=== PATIENT | male | born 1970 | race Caucasian/White ===

== ENCOUNTER 2021-02-13 11:48 | Emergency (ER) | payer BC, OTHER ==
--- NOTE | 2021-02-13 12:07 | EDPHYS ---
Physician Documentation [facility] Name: Jeferson Garcia Age: 50 yrs Sex: Male : 1970 Arrival Date: 02/13/2021 Time: 11:56 Bed 3 Private MD: ED Physician Ron Grey HPI: 02/13 12:07 This 50 yrs old Male presents to ER via Unassigned with complaints of S/S of kdr Possible Stroke. 12:07 The patient presents to the emergency department with weakness of the left upper kdr extremity, that is severe, left lower extremity, that is severe, a speech or higher order brain function problem, aphasia, that is mild, difficulty standing, the patient cannot stand, difficult walking, the patient cannot walk. Onset: The symptoms/episode began/occurred acutely, just prior to arrival. Context: occurred at home, occurred while the patient was standing. Associated signs and symptoms: Pertinent positives: headache. Severity of symptoms: At their worst the symptoms were mild moderate just prior to arrival, in the emergency department the symptoms. Patient's baseline: Neuro: alert and fully oriented, Motor: no deficits, Ambulation: walks without assistance, Speech: normal. Current symptoms: paralysis or paresis, of the left arm and left leg, that is severe. The patient has not experienced similar symptoms in the past. The patient has not recently seen a physician. Historical: - Allergies: 12:13 No Known Allergies; sv - PMHx: 12:13 None; sv - PSHx: 12:13 None; sv - Immunization history:: Adult Immunizations unknown. - Social history:: Smoking status: unknown. ROS: 12:07 Constitutional: Negative for fever, chills, and weight loss, Eyes: Negative for injury, kdr pain, redness, and discharge, ENT: Negative for injury, pain, and discharge, Neck: Negative for injury, pain, and swelling, Cardiovascular: Negative for chest pain, palpitations, and edema, Respiratory: Negative for shortness of breath, cough, wheezing, and pleuritic chest pain, Abdomen/GI: Negative for abdominal pain, nausea, vomiting, diarrhea, and constipation, Back: Negative for injury and pain, : Negative for injury, bleeding, discharge, and swelling, MS/Extremity: Negative for injury and deformity, Skin: Negative for injury, rash, and discoloration, Psych: Negative for depression, anxiety, suicide ideation, homicidal ideation, and hallucinations, Allergy/Immunology: Negative for hives, rash, and allergies, Endocrine: Negative for neck swelling, polydipsia, polyuria, polyphagia, and marked weight changes, Hematologic/Lymphatic: Negative for swollen nodes, abnormal bleeding, and unusual bruising. 12:07 Neuro: Positive for headache, weakness, of the left arm and left leg. Exam: 12:02 ECG was reviewed by the Attending Physician. kdr 12:07 Constitutional: This is a well developed, well nourished patient who is awake, alert, kdr and in no acute distress. Head/Face: Normocephalic, atraumatic. Eyes: Pupils equal round and reactive to light, extra-ocular motions intact. Lids and lashes normal. Conjunctiva and sclera are non-icteric and not injected. Cornea within normal limits. Periorbital areas with no swelling, redness, or edema. Neck: Trachea midline, no thyromegaly or masses palpated, and no cervical lymphadenopathy. Supple, full range of motion without nuchal rigidity, or vertebral point tenderness. No Meningismus. Chest/axilla: Normal chest wall appearance and motion. Nontender with no deformity. No lesions are appreciated. Cardiovascular: Regular rate and rhythm with a normal S1 and S2. No gallops, murmurs, or rubs. Normal PMI, no JVD. No pulse deficits. Respiratory: Lungs have equal breath sounds bilaterally, clear to auscultation and percussion. No rales, rhonchi or wheezes noted. No increased work of breathing, no retractions or nasal flaring. Abdomen/GI: Soft, non-tender, with normal bowel sounds. No distension or tympany. No guarding or rebound. No evidence of tenderness throughout. Back: No spinal tenderness. No costovertebral tenderness. Full range of motion. Skin: Warm, dry with normal turgor. Normal color with no rashes, no lesions, and no evidence of cellulitis. MS/ Extremity: Pulses equal, no cyanosis. Neurovascular intact. Full, normal range of motion. Psych: Awake, alert, with orientation to person, place and time. Behavior, mood, and affect are within normal limits. 12:07 Neuro: Orientation: is normal, Mentation: is normal, Memory: is normal, Motor: strength is 5/5 in the right arm and right leg, Strength is 1/5 in the left arm and left leg. Vital Signs: 11:45 Weight 117.93 kg; sv 11:50 BP 222 / 119; Pulse 98; Resp 19 S; Temp 97.3(TE); Pulse Ox 94% on R/A; jd3 12:15 BP 204 / 104; Pulse 99; Resp 19 S; Pulse Ox 89% on R/A; jd3 12:25 BP 188 / 98; Pulse 105; Resp 20 S; Pulse Ox 96% on 2 lpm NC; jd3 12:35 BP 207 / 96; Pulse 108; Resp 18 S; Pulse Ox 95% on 2 lpm NC; jd3 12:45 BP 193 / 97; Pulse 109; Resp 19 S; Pulse Ox 97% on 2 lpm NC; jd3 NIH Stroke Scale Scores: 11:48 NIHSS Score: 18 jd3 11:48 NIHSS Score: 18 jd3 12:23 NIHSS Score: 17 kdr MDM: 12:06 Patient medically screened. kdr 12:07 Data reviewed: vital signs, nurses notes, lab test result(s), radiologic studies. kdr Counseling: I had a detailed discussion with the patient and/or guardian regarding: the historical points, exam findings, and any diagnostic results supporting the discharge/admit diagnosis, lab results, radiology results, the need to transfer to another facility. 02/13 12:04 Order name: Basic Metabolic Panel; Complete Time: 14:12 kdr 02/13 12:04 Order name: CBC with Diff; Complete Time: 12:23 kdr 02/13 12:04 Order name: Protime (+inr); Complete Time: 14:12 kdr 02/13 12:04 Order name: Ptt, Activated; Complete Time: 14:12 kdr 02/13 12:15 Order name: Glucose, Ancillary Testing; Complete Time: 12:23 EDMS 02/13 12:16 Order name: COVID-19 : Document "Date of Symptom Onset" if Symptomatic. kdr 02/13 12:04 Order name: CT Stroke Brain w/o Contrast; Complete Time: 12:23 kdr 02/13 12:04 Order name: Stroke CXR 1 View; Complete Time: 14:12 kdr 02/13 12:04 Order name: EKG; Complete Time: 12:04 kdr 02/13 12:04 Order name: Accucheck; Complete Time: 12:15 kdr 02/13 12:04 Order name: Cardiac monitoring; Complete Time: 12:04 kdr 02/13 12:04 Order name: EKG - Nurse/Tech; Complete Time: 12:15 kdr 02/13 12:04 Order name: IV Saline Lock; Complete Time: 12:04 kdr 02/13 12:04 Order name: Labs collected and sent; Complete Time: 12:04 kdr 02/13 12:04 Order name: NPO; Complete Time: 12:15 kdr 02/13 12:04 Order name: O2 Per Protocol; Complete Time: 12:04 kdr 02/13 12:04 Order name: O2 Sat Monitoring; Complete Time: 12:04 kdr 02/13 12:04 Order name: Stroke Swallow Screen; Complete Time: 12:15 kdr EC:02 Rate is 97 beats/min. Rhythm is regular, Sinus Rhythm with No ectopy. QRS Amity is kdr Normal. [place] interval is normal. QRS interval is normal. QT interval is normal. Clinical impression: NSR w/ Non-specific ST/T Changes. Administered Medications: 12:01 Drug: Cardizem (diltiazem) 5 mg/hr Route: IV; Rate: calculated rate; Site: left forearm;ll1 12:30 Follow up: Response: No adverse reaction; IV Status: Infusion continued upon transfer jd3 Point of Care Testing: Blood Glucose: 12:00 Blood Glucose: 98 mg/dL; jd3 Ranges: Critical Glucose Levels:Adult <50 mg/dl or >400 mg/dl <40 mg/dl or >180 mg/dl Disposition Summary: 02/13/21 12:06 Transfer Ordered Transfer Location: [facility] kdr Reason: Higher level of care kdr Condition: Serious kdr Problem: new kdr Symptoms: are unchanged kdr Accepting Physician: stroke(02/13/21 12:59) jd3 Diagnosis - ICH kdr Forms: - Medication Reconciliation Form kdr - SBAR form kdr NIH Stroke Scale - NIH Stroke Score Date: 02/13/2021 Time: 11:48 Total Score = 18 1a. Level of Consciousness (LOC) - 1(Not Alert) 1b. Level of Consciousness (LOC) (Month \\T\\ Age) - 0(Both) 1c. LOC Commands (Open \\T\\ Closes Eyes/Geophysics Professor) - 0(Both) 2. Best Gaze (Lateral Gaze Paresis) - 1(Partial gaze palsy) 3. Visual Field Loss - 1(Partial hemianopia) 4. Facial Palsy - 3(Complete paralysis) 5a. Left Arm: Motor (10-second hold) - 3(No effort against gravity) 5b. Right Arm: Motor (10-second hold) - 0(No drift) 6a. Left Leg: Motor (5-second hold - always test supine) - 3(No effort against gravity) 6b. Right Leg: Motor (5-second hold - always test supine) - 0(No drift) 7. Limb Ataxia (finger/nose \\T\\ heel/quiñones - test with eyes open) - 1(Present in one limb) 8. Sensory Loss (pinprick arms/legs/face) - 2(Severe to total loss) 9. Best Language: Aphasia (description/naming/reading) - 1(Mild to moderate aphasia) 10. Dysarthria (speech clarity - read or repeat words) - 1(Mild to Moderate) 11. Extinction and Inattention (visual/tactile/auditory/spatial/personal) - 1(Present) Initials: jd3 NIH Stroke Scale - NIH Stroke Score Date: 02/13/2021 Time: 11:48 Total Score = 18 1a. Level of Consciousness (LOC) - 1(Not Alert) 1b. Level of Consciousness (LOC) (Month \\T\\ Age) - 0(Both) 1c. LOC Commands (Open \\T\\ Closes Eyes/Geophysics Professor) - 0(Both) 2. Best Gaze (Lateral Gaze Paresis) - 1(Partial gaze palsy) 3. Visual Field Loss - 1(Partial hemianopia) 4. Facial Palsy - 3(Complete paralysis) 5a. Left Arm: Motor (10-second hold) - 3(No effort against gravity) 5b. Right Arm: Motor (10-second hold) - 0(No drift) 6a. Left Leg: Motor (5-second hold - always test supine) - 3(No effort against gravity) 6b. Right Leg: Motor (5-second hold - always test supine) - 0(No drift) 7. Limb Ataxia (finger/nose \\T\\ heel/quiñones - test with eyes open) - 2(Present in two limbs) 8. Sensory Loss (pinprick arms/legs/face) - 1(Mild to moderate loss) 9. Best Language: Aphasia (description/naming/reading) - 1(Mild to moderate aphasia) 10. Dysarthria (speech clarity - read or repeat words) - 1(Mild to Moderate) 11. Extinction and Inattention (visual/tactile/auditory/spatial/personal) - 1(Present) Initials: javier NIH Stroke Scale - NIH Stroke Score Date: 02/13/2021 Time: 12:23 Total Score = 17 1a. Level of Consciousness (LOC) - 1(Not Alert) 1b. Level of Consciousness (LOC) (Month \\T\\ Age) - 0(Both) 1c. LOC Commands (Open \\T\\ Closes Eyes/Geophysics Professor) - 0(Both) 2. Best Gaze (Lateral Gaze Paresis) - 0(Normal) 3. Visual Field Loss - 2(Complete hemianopia) 4. Facial Palsy - 0(Normal) 5a. Left Arm: Motor (10-second hold) - 4(No movement) 5b. Right Arm: Motor (10-second hold) - 0(No drift) 6a. Left Leg: Motor (5-second hold - always test supine) - 4(No movement) 6b. Right Leg: Motor (5-second hold - always test supine) - 0(No drift) 7. Limb Ataxia (finger/nose \\T\\ heel/quiñones - test with eyes open) - 2(Present in two limbs) 8. Sensory Loss (pinprick arms/legs/face) - 2(Severe to total loss) 9. Best Language: Aphasia (description/naming/reading) - 1(Mild to moderate aphasia) 10. Dysarthria (speech clarity - read or repeat words) - 1(Mild to Moderate) 11. Extinction and Inattention (visual/tactile/auditory/spatial/personal) - 0(No abnormality) Initials: kdr Signatures: Dispatcher [employer] Geni Bob RN RN sv Rittger, Kevin, MD MD kdr Davies, Jonathon, RN RN jd3 Lewis, Lynsay, RN RN ll1 Corrections: (The following items were deleted from the chart) 12:59 12:06 stroke kdr jd3
[2021-02-13 12:15] LABS: Absolute Lymphocytes (CBC) 2.5 K/uL (0.7-4.9); Basophils % 1.3 % (0-1.3); Hematocrit 40.1 % (39.6-49.0); Lymphocytes % 31.3 % (15.3-44.8); RBC Red Blood Cell Count 4.72 M/uL (4.33-5.43)
--- NOTE | 2021-02-13 12:17 | RAD REPORT ---
EXAM DESCRIPTION: CT - Ct Stroke Brain Wo Cont - 02/13/2021 12:09 pm CLINICAL HISTORY: WEAKNESS Headache, drowsiness, CVA symptomology COMPARISON: <Comparisons> TECHNIQUE: All CT scans are performed using dose optimization technique as appropriate and may inclu de automated exposure control or mA/KV adjustment according to patient size. FINDINGS: Acute intraparenchymal hemorrhage is present in right thalamus/ basal ganglia region measu ring 3.8 x 2.7 cm.There is mild surrounding edema seen. Minimal right to left midline shift of 4 mm i s noted. Mild mucosal thickening of the inferior maxillary antrum on the left is seen. The paranasal sinuses m astoids are otherwise clear. The calvarium is intact. IMPRESSION: Acute intracranial hematoma is seen right thalamus/basal ganglia region (3.8 x 2.7 cm) w ith minimal right to left 4 mm of midline shift. The findings were discussed with Dr. Grey in the ER on 02/13/2021 at 11:55 a.m. by telephone.
[2021-02-13] MEDS ORDERED: Nicardipine/NS 25 MG/250 ML KIT IV ONE (12:18)
[2021-02-13 12:25] LABS: Protime INR 1.08
--- NOTE | 2021-02-13 12:27 | RAD REPORT ---
EXAM DESCRIPTION: RAD - Chest Single View - 02/13/2021 12:16 pm CLINICAL HISTORY: weak Chest pain. COMPARISON: <Comparisons> FINDINGS: Portable technique limits examination quality. The lungs are grossly clear. The heart is normal in size. No displaced fractures. IMPRESSION: No acute intrathoracic process suspected.
[2021-02-13 12:29] LABS: Potassium 3.5 mmol/L (3.5-5.1)
--- NOTE | 2021-02-13 13:00 | ER ---
Nurse's Notes [facility] Name: Jeferson Garcia Age: 50 yrs Sex: Male : 1970 Arrival Date: 02/13/2021 Time: 11:56 Bed 3 Private MD: Diagnosis: ICH Presentation: 02/13 11:45 Chief complaint: EMS states: left arm and leg weakness, left arm tremor, slurred speech sv started at about 1125. Pt reports a right sided headache yesterday around 2100 and went to bed around 2300. Woke up with the same headache this morning around 0900. In EMS route pt became more lethargic, nauseous, and diaphoretic. 20G L FA BP 215/124 BS-131, Zofran 4mg IVP given. EMS reported that pt collapsed to the ground on the stairs but did not fall. An acute neurological deficit is present. The charge nurse has been notified. The patients blood glucose was checked prior to arriving to the hospital and was found to be hyperglycemic. Risk Assessment: Do you want to hurt yourself or someone else? Patient reports no desire to harm self or others. Onset of symptoms was February 13, 2021. 11:45 Method Of Arrival: EMS: [facility] sv 11:45 Acuity: FREDA 1 sv 11:48 Coronavirus screen: At this time, the client does not indicate any symptoms associated jd3 with coronavirus-19. Ebola Screen: Patient negative for fever greater than or equal to 101.5 degrees Fahrenheit, and additional compatible Ebola Virus Disease symptoms. Initial Sepsis Screen: Does the patient meet any 2 criteria? No. Patient's initial sepsis screen is negative. Does the patient have a suspected source of infection? No. Patient's initial sepsis screen is negative. Triage Assessment: 11:45 The onset of the patients symptoms was February 13, 2021 at 11:25. General: Appears sv uncomfortable, obese, well developed, Behavior is calm, cooperative, appropriate for age. Pain: Complains of pain in right frontal area, right side of the back of head and right temporal area. Neuro: Level of Consciousness is obeys commands, lethargic, Oriented to person, place, time, situation, Weakness in left arm(s) leg(s) Speech is slurred, Reports headache in right weakness in left arm and left leg Denies blurred vision numbness diplopia. Respiratory: Airway is patent Respiratory effort is even, unlabored, Respiratory pattern is regular, symmetrical. Derm: Skin is normal. Musculoskeletal:. Stroke Activation: Symptom onset < 3 hours Physician: Stroke Attending; Name: ; Notified At: ; Arrived At: Physician: Chief Stroke Resident; Name: ; Notified At: ; Arrived At: Physician: Stroke Resident; Name: ; Notified At: ; Arrived At: Physician: ED Attending; Name: Dr Grey; Notified At: 11:32; Arrived At: 11:52 Physician: ED Resident; Name: ; Notified At: ; Arrived At: Historical: - Allergies: 12:13 No Known Allergies; sv - PMHx: 12:13 None; sv - PSHx: 12:13 None; sv - Immunization history:: Adult Immunizations unknown. - Social history:: Smoking status: unknown. Screenin:48 The patient has not been NPO before screening. The patient is currently on the jd3 following diet: regular The patient is alert, able to follow commands. The patient exhibits slurred or garbled speech. Provider notified of indication for Speech Therapy consult. The patient failed the bedside swallow screening. The patient will be kept NPO until cleared by Speech Therapy or Physician. Provider notified of bedside swallow screening results: Ron Grey MD. 11:48 VAN Screening: Arm Drift: Flaccid or no effort against gravity. Visual Disturbance: No jd3 visual disturbance noted. Aphasia: Expressive aphasia noted. Provider notified of +VAN scoring. Neglect: Patient is unable to feel both sides of body being touched at the same time. Provider notified of +VAN scoring. 12:10 Abuse screen: Denies threats or abuse. Nutritional screening: No deficits noted. jd3 Tuberculosis screening: No symptoms or risk factors identified. Fall Risk Fall in past 12 months (25 points). IV access (20 points). Total Jones Fall Scale indicates High Risk Score (45 or more points). Fall prevention measures have been instituted. Side Rails Up X 2 Placed Close to Nursing Station Frequent Obs/Assessments Occuring. Assessment: 11:45 Reassessment: Pt to CT via EMS stretcher. sv 11:45 VAN Scoring: Arm Drift: Flaccid/no antigravity Visual Disturbance: No visual sv disturbance noted. Aphasia: No aphasia noted. Neglect: No neglect noted. 11:48 Reassessment: Pt transferred to the room via stretcher. sv 11:48 The patient has not been NPO before screening. The patient is currently on the jd3 following diet: regular The patient is alert, and able to follow commands. The patient exhibits slurred or garbled speech. Provider notified of the indication for Speech Therapy consult. The patient is not exhibiting difficulty speaking. The patient is exhibiting difficulty understanding words. The provider has been notified of the indication for a speech consult. The patient is able to swallow own secretions with no drooling or need for suction. failed swallow screen failed swallow screen The patient failed the bedside swallow screening. The patient will be kept NPO until cleared by Speech Therapy or Physician. Provider notified of bedside swallow screening results: Ron Grey MD. T-PA (Activase) Screening: Contraindications: Intracranial hemorrhage and its risk factor and suspicion of subarachnoid bleed: Yes. 11:50 General: Appears comfortable, Behavior is cooperative, appropriate for age, drowsy. jd3 Pain: Denies pain. Neuro: Level of Consciousness is awake, obeys commands, Oriented to person, place, time, situation, Facial droop on left, Numbness in left side of body Reports numbness in left side of body weakness in left side of body. Cardiovascular: Capillary refill < 3 seconds Patient's skin is warm and dry. Rhythm is sinus tachycardia. Respiratory: Airway is patent Respiratory effort is even, unlabored, Respiratory pattern is regular, symmetrical, Denies cough, shortness of breath. GI: No signs and/or symptoms were reported involving the gastrointestinal system. : No signs and/or symptoms were reported regarding the genitourinary system. EENT: No signs and/or symptoms were reported regarding the EENT system. Derm: Skin is intact, Skin is dry, Skin is normal, Skin temperature is warm. Musculoskeletal: No signs and/or symptoms reported regarding the musculoskeletal system. 11:52 Reassessment: Dr Grey at the bedside to assess the pt. sv 12:30 Reassessment: Patient and/or family updated on plan of care and expected duration. Pain jd3 level reassessed. Patient is alert, oriented x 3, equal unlabored respirations, skin warm/dry/pink. nurse remains at bedside titrating medication. 12:59 Reassessment: Patient and/or family updated on plan of care and expected duration. Pain jd3 level reassessed. Patient is alert, oriented x 3, equal unlabored respirations, skin warm/dry/pink. report given to EMS for pt transfer. Vital Signs: 11:45 Weight 117.93 kg; sv 11:50 BP 222 / 119; Pulse 98; Resp 19 S; Temp 97.3(TE); Pulse Ox 94% on R/A; jd3 12:15 BP 204 / 104; Pulse 99; Resp 19 S; Pulse Ox 89% on R/A; jd3 12:25 BP 188 / 98; Pulse 105; Resp 20 S; Pulse Ox 96% on 2 lpm NC; jd3 12:35 BP 207 / 96; Pulse 108; Resp 18 S; Pulse Ox 95% on 2 lpm NC; jd3 12:45 BP 193 / 97; Pulse 109; Resp 19 S; Pulse Ox 97% on 2 lpm NC; jd3 NIH Stroke Scale Scores: 11:48 NIHSS Score: 18 jd3 11:48 NIHSS Score: 18 jd3 12:23 NIHSS Score: 17 kdr ED Course: 11:45 Maintain EMS IV. Dressing intact. Site clean \T\ dry. Gauge \T\ site: 20G L FA. sv 11:48 Patient has correct armband on for positive identification. Bed in low position. Call jd3 light in reach. Side rails up X2. Adult w/ patient. health navigator on. Pulse ox on. NIBP on. 11:48 No provider procedures requiring assistance completed. Patient transferred, IV remains jd3 in place. 11:56 Patient arrived in ED. jmm 11:59 initiated a transfer with Bridget Garrett Rn with the [facility]. eb 12:00 Ron Grey MD is Attending Physician. kdr 12:02 Inserted saline lock: 18 gauge in left wrist, using aseptic technique. Blood collected. sv Flushed left with 2 ml normal saline wrist. 12:04 Sergio Mckeon, RN is Primary Nurse. ll1 12:06 Lele Plaza, RN is Primary Nurse. jd3 12:09 CT Stroke Brain w/o Contrast In Process Unspecified. EDMS 12:13 Triage completed. sv 12:[address] Villar the neurologist [employer] scout for [facility] with Dr. Que cox for patient transfer consultation. 12:14 Arm band placed on. sv 12:16 Stroke CXR 1 View In Process Unspecified. EDMS 12:38 administrative approval given by Bridget Garrett Rn/ patient has been accepted to [facility] 7 south bed [id number]/ Dr. Villar has accepted the patient in transfer/ report to be called to the transfer center at [phone]. 12:39 called the [employer] crew to come pharmacy picking tech the patient for transport but due to eb the weather they will not be able to fly. Administered Medications: 12:01 Drug: Cardizem (diltiazem) 5 mg/hr Route: IV; Rate: calculated rate; Site: left forearm;ll1 12:30 Follow up: Response: No adverse reaction; IV Status: Infusion continued upon transfer jd3 Point of Care Testing: Blood Glucose: 12:00 Blood Glucose: 98 mg/dL; jd3 Ranges: Outcome: 12:06 ER care complete, transfer ordered by . kdr 12:54 Transferred by ground EMS to [facility], Transfer form completed. sv X-rays sent w/ patient. Note: Report given to Bre LOUIS 12:54 Condition: stable 12:54 Instructed on the need for transfer. 12:59 Patient left the ED. jd3 NIH Stroke Scale - NIH Stroke Score Date: 02/13/2021 Time: 11:48 Total Score = 18 1a. Level of Consciousness (LOC) - 1(Not Alert) 1b. Level of Consciousness (LOC) (Month \T\ Age) - 0(Both) 1c. LOC Commands (Open \T\ Closes Eyes/Box Chipper) - 0(Both) 2. Best Gaze (Lateral Gaze Paresis) - 1(Partial gaze palsy) 3. Visual Field Loss - 1(Partial hemianopia) 4. Facial Palsy - 3(Complete paralysis) 5a. Left Arm: Motor (10-second hold) - 3(No effort against gravity) 5b. Right Arm: Motor (10-second hold) - 0(No drift) 6a. Left Leg: Motor (5-second hold - always test supine) - 3(No effort against gravity) 6b. Right Leg: Motor (5-second hold - always test supine) - 0(No drift) 7. Limb Ataxia (finger/nose \T\ heel/quiñones - test with eyes open) - 1(Present in one limb) 8. Sensory Loss (pinprick arms/legs/face) - 2(Severe to total loss) 9. Best Language: Aphasia (description/naming/reading) - 1(Mild to moderate aphasia) 10. Dysarthria (speech clarity - read or repeat words) - 1(Mild to Moderate) 11. Extinction and Inattention (visual/tactile/auditory/spatial/personal) - 1(Present) Initials: jd3 NIH Stroke Scale - NIH Stroke Score Date: 02/13/2021 Time: 11:48 Total Score = 18 1a. Level of Consciousness (LOC) - 1(Not Alert) 1b. Level of Consciousness (LOC) (Month \T\ Age) - 0(Both) 1c. LOC Commands (Open \T\ Closes Eyes/Box Chipper) - 0(Both) 2. Best Gaze (Lateral Gaze Paresis) - 1(Partial gaze palsy) 3. Visual Field Loss - 1(Partial hemianopia) 4. Facial Palsy - 3(Complete paralysis) 5a. Left Arm: Motor (10-second hold) - 3(No effort against gravity) 5b. Right Arm: Motor (10-second hold) - 0(No drift) 6a. Left Leg: Motor (5-second hold - always test supine) - 3(No effort against gravity) 6b. Right Leg: Motor (5-second hold - always test supine) - 0(No drift) 7. Limb Ataxia (finger/nose \T\ heel/quiñones - test with eyes open) - 2(Present in two limbs) 8. Sensory Loss (pinprick arms/legs/face) - 1(Mild to moderate loss) 9. Best Language: Aphasia (description/naming/reading) - 1(Mild to moderate aphasia) 10. Dysarthria (speech clarity - read or repeat words) - 1(Mild to Moderate) 11. Extinction and Inattention (visual/tactile/auditory/spatial/personal) - 1(Present) Initials: jd3 NIH Stroke Scale - NIH Stroke Score Date: 02/13/2021 Time: 12:23 Total Score = 17 1a. Level of Consciousness (LOC) - 1(Not Alert) 1b. Level of Consciousness (LOC) (Month \T\ Age) - 0(Both) 1c. LOC Commands (Open \T\ Closes Eyes/Box Chipper) - 0(Both) 2. Best Gaze (Lateral Gaze Paresis) - 0(Normal) 3. Visual Field Loss - 2(Complete hemianopia) 4. Facial Palsy - 0(Normal) 5a. Left Arm: Motor (10-second hold) - 4(No movement) 5b. Right Arm: Motor (10-second hold) - 0(No drift) 6a. Left Leg: Motor (5-second hold - always test supine) - 4(No movement) 6b. Right Leg: Motor (5-second hold - always test supine) - 0(No drift) 7. Limb Ataxia (finger/nose \T\ heel/quiñones - test with eyes open) - 2(Present in two limbs) 8. Sensory Loss (pinprick arms/legs/face) - 2(Severe to total loss) 9. Best Language: Aphasia (description/naming/reading) - 1(Mild to moderate aphasia) 10. Dysarthria (speech clarity - read or repeat words) - 1(Mild to Moderate) 11. Extinction and Inattention (visual/tactile/auditory/spatial/personal) - 0(No abnormality) Initials: kdr Signatures: Dispatcher [employer] Geni Bob RN RN sv Rittger, Kevin, MD MD kdr Mickail, Joel, PA PA jmm Davies, Jonathon, RN RN jd3 Botello, Elizabeth eb Lewis, Lynsay, RN RN ll1 Corrections: (The following items were deleted from the chart) 12:14 11:25 Chief complaint: EMS states: left arm and leg weakness, left arm tremor, sv slurred speech started at about 1125. Pt reports a right sided headache yesterday around 2100 and went to bed around 2300. Woke up with the same headache this morning around 0900. In EMS route pt became more lethargic, nauseous, and diaphoretic. 20G L FA BP 215/124 BS-131, Zofran 4mg IVP given sv 12:14 11:48 VAN Screening: Arm Drift: Flaccid or no effort against gravity. javier jjosé 12:16 11:25 An acute neurological deficit is present. The charge nurse has been sv notified. The patients blood glucose was checked prior to arriving to the hospital and was found to be hyperglycemic. : 11:25 Risk Assessment: Do you want to hurt yourself or someone else? Patient sv reports no desire to harm self or others. 11:25 Onset of symptoms was February 13, 2021 [facility] 11:25 Chief complaint: EMS states: left arm and leg weakness, left arm tremor, sv slurred speech started at about 1125. Pt reports a right sided headache yesterday around 2100 and went to bed around 2300. Woke up with the same headache this morning around 0900. In EMS route pt became more lethargic, nauseous, and diaphoretic. 20G L FA BP 215/124 BS-131, Zofran 4mg IVP given. EMS reported that pt collapsed to the ground on the stairs but did not fall. : 11:25 Method Of Arrival: EMS: [facility] : 11:25 Acuity: FREDA 1 [facility] : 11:25 117.93 kg; sv 13:06 11:48 The patient has not been NPO before screening. The patient is currently jd3 on the following diet: regular The patient is alert, and able to follow commands. The patient exhibits slurred or garbled speech. Provider notified of the indication for Speech Therapy consult. The patient failed the bedside swallow screening. The patient will be kept NPO until cleared by Speech Therapy or Physician. Provider notified of bedside swallow screening results: Ron Grey MD jd3
--- NOTE | 2021-02-16 16:15 | EKG ---
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
== END 2021-02-13 12:59 | disposition short-term general hospital (02) ==
LOC: ER 11:48
DX: I62.9 Nontraumatic intracranial hemorrhage, unspecified (principal); R47.01 Aphasia; R29.718 NIHSS score 18
CPT/HCPCS: 36415; 70450; 71045; 80048; 82947; 85025; 85610; 85730; 93005; 96365; 99285

== ENCOUNTER 2021-08-04 22:39 | Emergency (ER) | payer BC ==
--- OUTSIDE RECORDS SUMMARY | 2021-08-04 22:45 | XMS REPORT | Continuity of Care Document ---
:1970 Author Organization [facility] t Address [address] [place] [address] Care Team Providers Name Role Phone Chadwick Annmarie Primary Care Physician KASSI MCCRAY Attending Clinician Unavail able Connie ELENA Attending Clinician Unavailable Connie Elena MD Attending Clinician DR THANH Attending Clinician Unavailable DR XENA Attending Clinician Unavailable KASSI MCCRAY Admitting Clinician Unavail able DR THANH Admitting Clinician Unavailable DR XENA Admitting Clinician Unavailable Payers Payer Name Policy Type Policy Number Effective Date Expiration Date S dallin BS PPO POS EPO [id number] 2019 00:00:00 CHOICE [facility] [id number] 2019 00:00:00 Problems Condition Condition Condition Status Onset Resolution Last Treating Co mments Source Name Details Category Date Date Treatment Clinician Date No known No known Disease Unive rs active active ity of problems problems [facility] Allergies, Adverse Reactions, Alerts Allergy Allergy Status Severity Reaction(s) Onset Inactive Treating Comm ents Source Name Type Date Date Clinician NO KNOWN Drug Active Univers ALLERGIE Class ity of S [facility] NO KNOWN All[facility] Social History Social Habit Start Date Stop Date Quantity Comments Source Exposure to Not sure [facility] SARS-CoV-2 (event) Medica l Branch Sex Assigned At [birth year] [facility] [place] 00:00:00 00:00:00 Medical Branch Smoking Status Start Date Stop Date Source Unknown if ever smoked [facility] [place] [facility] Medications Ordered Filled Start Stop Current Ordering Indication Dosage Frequency Signature Comments Components Source Medication Medication Date Date Medication? Clinician (SIG) Name Name methocarbam 2020-08 Yes 500mg 500 mg, Un freddy oL 2-18 Oral, QID, ity of (ROBAXIN) 22:00[place] 500 00 on Sat Medical mg 07/31/21 Branch at 1600, Until Discontinu ed, MARIS HYDROcodone 2020-08- No 1{tbl} 1 tablet, Univers -acetaminop 2-18 12-18 Oral, ONCE i ty of hen (NORCO) 20:30: 19:34 NOW, 1 Scott as 10-325 mg 00 :00 dose, On Medica l tablet 1 Sat Branch tablet 07/31/21 at 1430, Routine methocarbam 2020-08 Yes [id number] 750mg Take 1 Univers oL 750 mg 2-18 tablet by ity o f tablet 00:00: mouth [place] 00 every 6 Medical (six) Branch hours as needed for Pain (scale 7-10) (MUSCLE SPASM). HYDROcodone 2020-08- Yes 4647 1{tbl} Take 1 U nivers -acetaminop 2-18 12-26 tablet by it y of hen 10-325 00:00: 05:59 mouth [place] mg tablet 00 :00 every 6 Medical (six) Branch hours as needed for Pain (scale 7-10) for up to 7 days. Indication s: acute pain methocarbam 2020-08- No [id number] 750mg Take 1 Univers oL 750 mg 2-18 12-18 tablet by ity of tablet 00:00: 00:00 mouth [place] 00 :00 every 6 Medical (six) Branch hours as needed for Pain (scale 7-10) (MUSCLE SPASM). Vital Signs Vital Name Observation Time Observation Value Comments Source HEIGHT 2021-02-13 13:56:00 175.3 cm WEIGHT 2021-02-13 13:56:00 124.331 kg Systolic blood 2021-07-31 19:30:00 107 mm[Hg] Univer sity of pressure [facility] Diastolic blood 2021-07-31 19:30:00 83 mm[Hg] Unive rsity of pressure [facility] Heart rate 2021-07-31 19:30:00 78 /min [facility] Respiratory rate 2021-07-31 19:30:00 19 /min [facility] Oxygen saturation in 2021-07-31 19:30:00 98 /min [facility] Arterial blood by [facility] Pulse oximetry Branch Body temperature 2021-07-31 17:31:38 37.28 Nicole [facility] Body height 2021-07-31 17:28:[address] [facility] Body weight 2021-07-31 17:28:[address] [facility] BMI 2021-07-31 17:28:00 33.45 kg/m2 [facility] HEIGHT 2021-02-13 13:56:00 175.3 cm WEIGHT 2021-02-13 13:56:00 124.331 kg Procedures Procedure Date / Time Performed Performing Clinician [facility] e XR LUMBAR SPINE 3 VW 2021-07-31 18:35:01 Alejo Elena [facility] XR HIP 1 VW LEFT 2021-07-31 18:35:01 Alejo Elena [facility] Encounters Start End Encounter Admission Attending Care Care Encounter Source Date/Time Date/Time Type Type Clinicians Facility Department ID 2021-02-13 Inpatient ER [facility] Neuro ICU [id number] [facility] 13:44:00 KIMBERLYN ANGULO 2021-07-31 2021-07-31 Emergency X [facility]AFORMERLY [facility], [facility], [facility] ERT [id number] Univers 11:23:00 14:06:00 ALEJO coker [facility] 2021-07-31 2021-07-31 [facility] [id number] Univers 11:23:00 14:06:00 Alejo MEDINA [id number] sheela penning[place] [id number] [facility] [id number] [facility] 084 Branch 2021-03-14 2021-03-14 Outpatient TINY SAM [facility] 973 [id number] [facility] 20:50:00 23:59:00 Medica l Center 2021-03-09 2021-03-09 Outpatient C XENA [facility] [id number] [facility] 11:17:00 23:59:00 UJJWALCAMELIA [facility] 2021-03-04 2021-03-04 Outpatient C TINY LAW [facility] 746 [id number] [facility] 12:50:00 23:59:00 Medica l Center Results Test Description Test Time Test Comments Results Result [facility] e Comments CT HEAD W/O 2021-03-15 CONTRAST 07:28:52 [facility] : 1970 Sex: M CT SCAN OF THE HEAD WITHOUT CONTRASTCLINICAL HISTORY: Drowsiness. Intracranial hemorrhage.LOCATION R 16TECHNIQUE: Helical CT was performed from the skull base to the vertex without IV contrast and provided at 5 mm slice thickness. Coronal and sagittal reconstruction provided. Axial images provided in bone windows as well. One or more the following dose reduction techniques is utilized: Use of iterative reconstruction, automated exposure control, adjustment of the mAs and Kv for the patient's weight. DLP 2010 mGy-cm. COMPARISON: CT brain dated 03/04/2021The known evolving late subacute right basal ganglia hematoma is smaller. It now measures approximately 1.4 x 1 x 2.3 cm (previously 3.2 x 2.8 x 2 cm). The surrounding area of edema measures up to 4.9 x 2.8 x 5.4 cm. Mild/moderate local mass effect persists with narrowing of the right lateral ventricle. Approximately 2 mm of cabfy-de-ejzg midline shift remains.No evidence of new hemorrhage. No evidence of new infarct.Posterior fossa contents are unremarkable.Mucous retention cyst within left maxillary sinus. The remaining paranasal sinuses and the mastoid air spaces are clear. Calvarium is intact.IMPRESSION:Evol ving late subacute right basal ganglia hematoma, smaller in size.Surrounding vasogenic edema persists.Electronicall y signed by: Oly Garcia MD 03/15/2021 7:[address] HEAD W/O 2021-03-04 CONTRAST *WW* 13:49:34 [facility] : 1970 Sex: M CT brain without contrast.Location code: [id number] HISTORY: acute intraparenchymal hemorrhage COMPARISON: None availableTECHNIQUE: Routine unenhanced axial imaging of the brain was performed with sagittal and coronal reconstructions. One or more of the following dose reduction techniques were used: Automated exposure control, adjustment of the mA and or KV according to patient size, and/or utilization of iterative reconstruction technique. DLP: 1052.8 mGy-cm. FINDINGS: No prior exams are available however there is known right basal ganglia hemorrhage. Subacute hemorrhage with mildly increased density is seen with surrounding vasogenic edema measuring 3.2 x 2.8 x 2.0 cm involving the right basal ganglia extending into the internal and external capsule. Estimated 4 mm of midline shift to the left. No other hemorrhage or infarcts noted. Brainstem and cerebellum are intact.The cranial vault and skull base are intact. The paranasal sinuses and mastoid air cells are pneumatized and well aerated. IMPRESSION: Known right basal ganglia intraparenchymal hemorrhage appearing subacute in nature without prior exams available for comparison. Minimal 4 mm of midline shift to the left. Please see above for details.Electronically signed by: Mac Garcia MD 03/04/2021 1:49 PM CDT POCT-GLUCOSE METER 2021-03-02 21:20:00 Test Item Value Reference Range Interpretation Comme nts POC-GLUCOSE METER (BEAKER) 120 mg/dL 70-110 H : TESTED AT [facility] [address] [facility] (test code = 1538) [place], [address]: Swim Coach/Techni anne-marie ID = [id number] for [place] Bang BASIC METABOLIC [id number] 04:38:00 Test Item Value Reference Range Interpretation Comments SODIUM (BEAKER) 146 meq/L 136-145 H (test code = 381) POTASSIUM (BEAKER) 3.9 meq/L 3.5-5.1 (test code = 379) CHLORIDE (BEAKER) 107 meq/L 98-107 (test code = 382) CO2 (BEAKER) (test 27 meq/L 22-29 code = 355) BLOOD UREA NITROGEN 54 mg/dL 7-21 H (BEAKER) (test code = 354) CREATININE (BEAKER) 1.46 mg/dL 0.57-1.25 H (test code = 358) GLUCOSE RANDOM 108 mg/dL 70-105 H (BEAKER) (test code = 652) CALCIUM (BEAKER) 10.1 mg/dL 8.4-10.2 (test code = 697) EGFR (BEAKER) (test 51 mL/min/1.73 ESTIMA HAYDER GFR IS code = 1092) sq m NOT ACCURATE CREATININE CLEARANCE IN PREDICTING GLOMERULAR FILTRATION RATE . ESTIMATED GFR I S NOT APPLICABLE FOR DIALYSIS PATIEN TS. Swim Coach ID - JENY MPOCT-GLUCOSE [id number] 00:36:00 Test Item Value Reference Range Interpretation Comments POC-GLUCOSE METER 122 mg/dL 70-110 H : TESTED A T [facility] [address] (BEAKER) (test code = [place], 1538) [address]: Swim Coach/Techni anne-marie ID = [id number] for Harshal Hernandez POCT-GLUCOSE [id number] 18:19:00 Test Item Value Reference Range Interpretation Comments POC-GLUCOSE METER 110 mg/dL 70-110 : TESTED A T [facility] [address] (BEAKER) (test code = [place], 1538) [address]: Swim Coach/Techni anne-marie ID = [id number] for RUBINA CRENSHAW POCT-GLUCOSE [id number] 18:19:00 Test Item Value Reference Range Interpretation Comments POC-GLUCOSE METER 108 mg/dL 70-110 : [facility] (AN) (test code = MARKO Moore [facility], 1538) [address]: Swim Coach/Techni anne-marie ID = [id number] for Fo ster, [place], ESOPH, SWALLOW FUNCTION, WITH CINE OR [id number] 15:41:00Reason for exam:->[facility]ag[facility] 1970 Sex: MFINAL REPORT EXAMINATION: Modified barium swallow study INDICATION: Dysphagia. COMPARISON: None. TECHNIQUE: The examination was performed in conjunction with speech pathology. Varying consistencies of barium was administered under lateral fluoroscopic observation. Fluoroscopy time: 1.9 minutesNumber of images: 24 IMPRESSION:Please refer to speech pathologist's note from same date for further description. No penetration of the airway or aspiration occurred with any consistency. Signed: Magnus Babcock Verified Date/Time: 03/01/2021 15:41:06 Reading Location: [address] Transitional Reading Room 03: 41 PMPOCT-GLUCOSE [id number] 06:42:00 Test Item Value Reference Range Interpretation Comments POC-GLUCOSE METER 110 mg/dL 70-110 : TESTED A T [facility] [address] (BEAKER) (test code = [facility], 1538) [address]: Swim Coach/Techni anne-marie ID = [id number] for Harshal Hernandez BASIC METABOLIC [id number] 04:33:00 Test Item Value Reference Range Interpretation Comments SODIUM (BEAKER) 140 meq/L 136-145 (test code = 381) POTASSIUM (BEAKER) 3.9 meq/L 3.5-5.1 (test code = 379) CHLORIDE (BEAKER) 106 meq/L 98-107 (test code = 382) CO2 (BEAKER) (test 25 meq/L 22-29 code = 355) BLOOD UREA NITROGEN 55 mg/dL 7-21 H (BEAKER) (test code = 354) CREATININE (BEAKER) 1.41 mg/dL 0.57-1.25 H (test code = 358) GLUCOSE RANDOM 123 mg/dL 70-105 H (BEAKER) (test code = 652) CALCIUM (BEAKER) 9.9 mg/dL 8.4-10.2 (test code = 697) EGFR (BEAKER) (test 53 mL/min/1.73 ESTIMA HAYDER GFR IS code = 1092) sq m NOT ACCURATE CREATININE CLEARANCE IN PREDICTING GLOMERULAR FILTRATION RATE . ESTIMATED GFR I S NOT APPLICABLE FOR DIALYSIS PATIEN TS. Swim Coach ID - JENY MPOCT-GLUCOSE [id number] 00:32:00 Test Item Value Reference Range Interpretation Comments POC-GLUCOSE METER 141 mg/dL 70-110 H : TESTED A T [facility] [address] (BEAKER) (test code = [facility], 1538) [address]: Swim Coach/Techni anne-marie ID = [id number] for Harshal Hernandez POCT-GLUCOSE [id number] 12:51:00 Test Item Value Reference Range Interpretation Comments POC-GLUCOSE METER 115 mg/dL 70-110 H : TESTED A T [facility] [address] (BEAKER) (test code = [facility], 1538) [address]: Swim Coach/Techni anne-marie ID = [id number] for Nanette Abad BASIC METABOLIC [id number] 06:41:00 Test Item Value Reference Range Interpretation Comments SODIUM (BEAKER) 147 meq/L 136-145 H (test code = 381) POTASSIUM (BEAKER) 4.4 meq/L 3.5-5.1 Specimen slightly (test code = 379) hemolyzed CHLORIDE (BEAKER) 111 meq/L 98-107 H (test code = 382) CO2 (BEAKER) (test 24 meq/L 22-29 code = 355) BLOOD UREA NITROGEN 58 mg/dL 7-21 H (BANNER) (test code = 354) CREATININE (BANNER) 1.34 mg/dL 0.57-1.25 H Specimen slightly (test code = 358) hemolyzed GLUCOSE RANDOM 119 mg/dL 70-105 H ([facility]ANNER) (test code = 652) CALCIUM (BANNER) 9.9 mg/dL 8.4-10.2 (test code = 697) EGFR (BANNER) (test 57 mL/min/1.73 ESTIMA HAYDER GFR IS code = 1092) sq m NOT ACCURATE CREATININE CLEARANCE IN PREDICTING GLOMERULAR FILTRATION RATE . ESTIMATED GFR I S NOT APPLICABLE FOR DIALYSIS PATIEN TS. Swim Coach ID - PIAYA LPOCT-GLUCOSE [id number] 06:35:00 Test Item Value Reference Range Interpretation Comments POC-GLUCOSE METER 109 mg/dL 70-110 : [facility] ([facility]) (test code = [facility], 1537) [address]: Swim Coach/Techni anne-marie ID = [id number] for CHRIS, NESS TAYA POCT-GLUCOSE [id number] 00:14:00 Test Item Value Reference Range Interpretation Comments POC-GLUCOSE METER 141 mg/dL 70-110 H : [facility] ([facility]) (test code = [facility], 1537) [address]: Swim Coach/Techni anne-marie ID = [id number] for CHRIS, NESS TAYA POCT-GLUCOSE [id number] 12:34:00 Test Item Value Reference Range Interpretation Comments POC-GLUCOSE METER 117 mg/dL 70-110 H : Notified RN/MD: (BANNER) (test code = [facility] 1537) [facility], [address]: Swim Coach/Techni anne-marie ID = [id number] for Co nawaf, Jaja POCT-GLUCOSE [id number] 06:09:00 Test Item Value Reference Range Interpretation Comments POC-GLUCOSE METER 151 mg/dL 70-110 H : [facility] ([facility]NER) (test code = [facility], 153) [address]: Swim Coach/Techni anne-marie ID = [id number] for La cy (pca2), Victori a POCT-GLUCOSE [id number] 00:14:00 Test Item Value Reference Range Interpretation Comments POC-GLUCOSE METER 158 mg/dL 70-110 H : [facility] (test code = [facility], 1538) [address]: Swim Coach/Techni anne-marie ID = [id number] for La cy (pca2), Victori a POCT-GLUCOSE [id number] 18:17:00 Test Item Value Reference Range Interpretation Comments POC-GLUCOSE METER 128 mg/dL 70-110 H : Notified RN/MD: (BANNER) (test code = TESTED AT [facility] 67[address] 1538) [facility], [address]: Swim Coach/Techni anne-marie ID = [id number] for Jaja Terrazas POCT-GLUCOSE [id number] 12:59:00 Test Item Value Reference Range Interpretation Comments POC-GLUCOSE METER 130 mg/dL 70-110 H : TESTED A T [facility] [address] (BANNER) (test code = [facility], 1538) [address]: Swim Coach/Techni anne-marie ID = [id number] for La cy (pca2), Victori a BASIC METABOLIC [id number] 04:50:00 Test Item Value Reference Range Interpretation Comments SODIUM (BEAKER) 147 meq/L 136-145 H (test code = 381) POTASSIUM (BEAKER) 4.3 meq/L 3.5-5.1 (test code = 379) CHLORIDE (BEAKER) 111 meq/L 98-107 H (test code = 382) CO2 (BEAKER) (test 23 meq/L 22-29 code = 355) BLOOD UREA NITROGEN 58 mg/dL 7-21 H (BEAKER) (test code = 354) CREATININE (BEAKER) 1.31 mg/dL 0.57-1.25 H (test code = 358) GLUCOSE RANDOM 124 mg/dL 70-105 H (BEAKER) (test code = 652) CALCIUM (BEAKER) 10.0 mg/dL 8.4-10.2 (test code = 697) EGFR (BEAKER) (test 58 mL/min/1.73 ESTIMA HAYDER GFR IS code = 1092) sq m NOT ACCURATE CREATININE CLEARANCE IN PREDICTING GLOMERULAR FILTRATION RATE . ESTIMATED GFR I S NOT APPLICABLE FOR DIALYSIS PATIEN TS. Swim Coach ID - EDASIPOCT-GLUCOSE [id number] 18:33:00 Test Item Value Reference Range Interpretation Comments POC-GLUCOSE METER 113 mg/dL 70-110 H : Notified RN/MD: (AN) (test code = TESTED AT [place] [address] 1538) [facility], [address]: Swim Coach/Techni anne-marie ID = [id number] for AN RUBINA HEAD POCT-GLUCOSE [id number] 12:57:00 Test Item Value Reference Range Interpretation Comments POC-GLUCOSE METER 131 mg/dL 70-110 H : Notified RN/MD: (AN) (test code = TESTED AT [place] [address] 1538) [facility], [address]: Swim Coach/Techni anne-marie ID = [id number] for AN RUBINA HEAD POCT-GLUCOSE [id number] 06:15:00 Test Item Value Reference Range Interpretation Comments POC-GLUCOSE METER 125 mg/dL 70-110 H : TESTED A T [facility] [address] (BANNER) [facility], 1538) [address]: Swim Coach/Techni anne-marie ID = [id number] for Harshal Hernandez BASIC METABOLIC [id number] 04:33:00 Test Item Value Reference Range Interpretation Comments SODIUM (BEAKER) 140 meq/L 136-145 (test code = 381) POTASSIUM (BEAKER) 4.4 meq/L 3.5-5.1 Specimen slightly (test code = 379) hemolyzed CHLORIDE (BEAKER) 108 meq/L 98-107 H (test code = 382) CO2 (BEAKER) (test 24 meq/L 22-29 code = 355) BLOOD UREA NITROGEN 58 mg/dL 7-21 H (BEAKER) (test code = 354) CREATININE (BEAKER) 1.31 mg/dL 0.57-1.25 H Specimen slightly (test code = 358) hemolyzed GLUCOSE RANDOM 127 mg/dL 70-105 H (BEAKER) (test code = 652) CALCIUM (BEAKER) 9.2 mg/dL 8.4-10.2 (test code = 697) EGFR (BEAKER) (test 58 mL/min/1.73 ESTIMA HAYDER GFR IS code = 1092) sq m NOT ACCURATE CREATININE CLEARANCE IN PREDICTING GLOMERULAR FILTRATION RATE . ESTIMATED GFR I S NOT APPLICABLE FOR DIALYSIS PATIEN TS. Swim Coach ID - PIAYA LPOCT-GLUCOSE [id number] 01:08:00 Test Item Value Reference Range Interpretation Comments POC-GLUCOSE METER 158 mg/dL 70-110 H : [facility] (test code = [facility], 1538) [address]: Swim Coach/Techni anne-marie ID = [id number] for Harshal Hernandez POCT-GLUCOSE [id number] 12:11:00 Test Item Value Reference Range Interpretation Comments POC-GLUCOSE METER 130 mg/dL 70-110 H : Notified RN/MD: (BANNER) (test code = TESTED AT [facility] 67[address] 1538) [facility], [address]: Swim Coach/Techni anne-marie ID = [id number] for RUBINA CRENSHAW POCT-GLUCOSE [id number] 08:21:00 Test Item Value Reference Range Interpretation Comments POC-GLUCOSE METER 134 mg/dL 70-110 H : TESTED A T [facility] [address] (BANNER) (test code = [facility], 153) [address]: Swim Coach/Techni anne-marie ID = [id number] for Eilsa gracia (pca2), Miguel a CBC W/PLT COUNT & AUTO [id number] 04:34:00 Test Item Value Reference Range Interpretation Comments WHITE BLOOD CELL COUNT (BEAKER) 9.0 K/ L 3.5-10.5 (test code = 775) RED BLOOD CELL COUNT (BEAKER) 5.03 M/ L 4.63-6.08 (test code = 761) HEMOGLOBIN (BEAKER) (test code = 14.1 GM/DL 13.7-17.5 410) HEMATOCRIT (BEAKER) (test code = 44.9 % 40.1-51.0 411) MEAN CORPUSCULAR VOLUME (BEAKER) 89.3 fL 79.0-92.2 (test code = 753) MEAN CORPUSCULAR HEMOGLOBIN 28.0 pg 25.7-32.2 (BEAKER) (test code = 751) MEAN CORPUSCULAR HEMOGLOBIN CONC 31.4 GM/DL 32.3-36.5 L (BEAKER) (test code = 752) RED CELL DISTRIBUTION WIDTH 13.1 % 11.6-14.4 (BEAKER) (test code = 412) PLATELET COUNT (BEAKER) (test 353 K/CU MM 150-450 code = 756) MEAN PLATELET VOLUME (BEAKER) 10.2 fL 9.4-12.4 (test code = 754) NUCLEATED RED BLOOD CELLS 0 /100 WBC 0-0 (BEAKER) (test code = 413) NEUTROPHILS RELATIVE PERCENT 58 % (BEAKER) (test code = 429) LYMPHOCYTES RELATIVE PERCENT 30 % (BEAKER) (test code = 430) MONOCYTES RELATIVE PERCENT 7 % (BEAKER) (test code = 431) EOSINOPHILS RELATIVE PERCENT 4 % (BEAKER) (test code = 432) BASOPHILS RELATIVE PERCENT 1 % (BEAKER) (test code = 437) NEUTROPHILS ABSOLUTE COUNT 5.20 K/ L 1.78-5.38 (BEAKER) (test code = 670) LYMPHOCYTES ABSOLUTE COUNT 2.68 K/ L 1.32-3.57 (BEAKER) (test code = 414) MONOCYTES ABSOLUTE COUNT (BEAKER) 0.67 K/ L 0.30-0.82 (test code = 415) EOSINOPHILS ABSOLUTE COUNT 0.33 K/ L 0.04-0.54 (BEAKER) (test code = 416) BASOPHILS ABSOLUTE COUNT (BEAKER) 0.09 K/ L 0.01-0.08 H (test code = 417) IMMATURE GRANULOCYTES-RELATIVE 1 % 0-1 PERCENT (BEAKER) (test code = 2801) BASIC METABOLIC [id number] 04:30:00 Test Item Value Reference Range Interpretation Comments SODIUM (BEAKER) 146 meq/L 136-145 H (test code = 381) POTASSIUM (BEAKER) 4.5 meq/L 3.5-5.1 (test code = 379) CHLORIDE (BEAKER) 111 meq/L 98-107 H (test code = 382) CO2 (BEAKER) (test 22 meq/L 22-29 code = 355) BLOOD UREA NITROGEN 56 mg/dL 7-21 H (BEAKER) (test code = 354) CREATININE (BEAKER) 1.46 mg/dL 0.57-1.25 H (test code = 358) GLUCOSE RANDOM 104 mg/dL 70-105 (BEAKER) (test code = 652) CALCIUM (BEAKER) 10.0 mg/dL 8.4-10.2 (test code = 697) EGFR (BEAKER) (test 51 mL/min/1.73 ESTIMA HAYDER GFR IS code = 1092) sq m NOT ACCURATE CREATININE CLEARANCE IN PREDICTING GLOMERULAR FILTRATION RATE . ESTIMATED GFR I S NOT APPLICABLE FOR DIALYSIS PATIEN TS. Swim Coach ID - JENY [id number] 04:30:00 Test Item Value Reference Range Interpretation Comments MAGNESIUM (BEAKER) (test code = 2.4 mg/dL 1.6-2.6 627) Swim Coach ID - JENY [id number] 04:30:00 Test Item Value Reference Range Interpretation Comments PHOSPHORUS (BEAKER) (test code = 5.2 mg/dL 2.3-4.7 H 604) Swim Coach ID - JENY MPOCT-GLUCOSE [id number] 00:45:00 Test Item Value Reference Range Interpretation Comments POC-GLUCOSE METER 134 mg/dL 70-110 H : TESTED A T [facility] [address] (BEAKER) (test code = [facility], 153) [address]: Swim Coach/Techni anne-marie ID = [id number] for La cy (pca2), Victori a POCT-GLUCOSE [id number] 11:47:00 Test Item Value Reference Range Interpretation Comments POC-GLUCOSE METER 130 mg/dL 70-110 H : TESTED A T [facility] 67[address] (BEAKER) (test code = [facility], 1538) [address]: Swim Coach/Techni anne-marie ID = [id number] for Nanette Abad POCT-GLUCOSE [id number] 06:20:00 Test Item Value Reference Range Interpretation Comments POC-GLUCOSE METER 96 mg/dL 70-110 : TESTED A T [facility] 67[address] (BEAKER) (test code = [facility], 1538) [address]: Swim Coach/Techni anne-marie ID = [id number] for Aldoy (pca2), Missy POCT-GLUCOSE [id number] 04:45:00 Test Item Value Reference Range Interpretation Comments POC-GLUCOSE METER 113 mg/dL 70-110 H : TESTED A T [facility] [address] (BEAKER) (test code = [facility], 1538) [address]: Swim Coach/Techni anne-marie ID = [id number] for [place] (pca2), Victori a BASIC METABOLIC [id number] 04:44:00 Test Item Value Reference Range Interpretation Comments SODIUM (BEAKER) 146 meq/L 136-145 H (test code = 381) POTASSIUM (BEAKER) 4.2 meq/L 3.5-5.1 (test code = 379) CHLORIDE (BEAKER) 111 meq/L 98-107 H (test code = 382) CO2 (BEAKER) (test 22 meq/L 22-29 code = 355) BLOOD UREA NITROGEN 45 mg/dL 7-21 H (BEAKER) (test code = 354) CREATININE (BEAKER) 1.15 mg/dL 0.57-1.25 (test code = 358) GLUCOSE RANDOM 119 mg/dL 70-105 H (BEAKER) (test code = 652) CALCIUM (BEAKER) 9.9 mg/dL 8.4-10.2 (test code = 697) EGFR (BEAKER) (test 68 mL/min/1.73 ESTIMA HAYDER GFR IS code = 1092) sq m NOT ACCURATE CREATININE CLEARANCE IN PREDICTING GLOMERULAR FILTRATION RATE . ESTIMATED GFR I S NOT APPLICABLE FOR DIALYSIS PATIEN TS. Swim Coach ID - LIN [id number] 04:44:00 Test Item Value Reference Range Interpretation Comments MAGNESIUM (BEAKER) (test code = 2.3 mg/dL 1.6-2.6 627) Swim Coach ID - LIN [id number] 04:44:00 Test Item Value Reference Range Interpretation Comments PHOSPHORUS (BEAKER) (test code = 3.8 mg/dL 2.3-4.7 604) Swim Coach ID Lucas CEBALLOS LCBC W/PLT COUNT & AUTO [id number] 04:17:00 Test Item Value Reference Range Interpretation Comments WHITE BLOOD CELL COUNT (BEAKER) 7.8 K/ L 3.5-10.5 (test code = 775) RED BLOOD CELL COUNT (BEAKER) 5.15 M/ L 4.63-6.08 (test code = 761) HEMOGLOBIN (BEAKER) (test code = 14.5 GM/DL 13.7-17.5 410) HEMATOCRIT (BEAKER) (test code = 45.9 % 40.1-51.0 411) MEAN CORPUSCULAR VOLUME (BEAKER) 89.1 fL 79.0-92.2 (test code = 753) MEAN CORPUSCULAR HEMOGLOBIN 28.2 pg 25.7-32.2 (BEAKER) (test code = 751) MEAN CORPUSCULAR HEMOGLOBIN CONC 31.6 GM/DL 32.3-36.5 L (BEAKER) (test code = 752) RED CELL DISTRIBUTION WIDTH 13.0 % 11.6-14.4 (BEAKER) (test code = 412) PLATELET COUNT (BEAKER) (test 341 K/CU MM 150-450 code = 756) MEAN PLATELET VOLUME (BEAKER) 9.8 fL 9.4-12.4 (test code = 754) NUCLEATED RED BLOOD CELLS 0 /100 WBC 0-0 (BEAKER) (test code = 413) NEUTROPHILS RELATIVE PERCENT 57 % (BEAKER) (test code = 429) LYMPHOCYTES RELATIVE PERCENT 30 % (BEAKER) (test code = 430) MONOCYTES RELATIVE PERCENT 7 % (BEAKER) (test code = 431) EOSINOPHILS RELATIVE PERCENT 5 % (BEAKER) (test code = 432) BASOPHILS RELATIVE PERCENT 1 % (BEAKER) (test code = 437) NEUTROPHILS ABSOLUTE COUNT 4.41 K/ L 1.78-5.38 (BEAKER) (test code = 670) LYMPHOCYTES ABSOLUTE COUNT 2.34 K/ L 1.32-3.57 (BEAKER) (test code = 414) MONOCYTES ABSOLUTE COUNT (BEAKER) 0.52 K/ L 0.30-0.82 (test code = 415) EOSINOPHILS ABSOLUTE COUNT 0.38 K/ L 0.04-0.54 (BEAKER) (test code = 416) BASOPHILS ABSOLUTE COUNT (BEAKER) 0.09 K/ L 0.01-0.08 H (test code = 417) IMMATURE GRANULOCYTES-RELATIVE 1 % 0-1 PERCENT (BEAKER) (test code = 2801) BLOOD [id number] 19:01:00 Test Item Value Reference Range Interpretation Comments CULTURE (BEAKER) (test No growth in 5 days code = 1095) BLOOD [id number] 19:01:00 Test Item Value Reference Range Interpretation Comments CULTURE (BEAKER) (test No growth in 5 days code = 1095) POCT-GLUCOSE [id number] 15:51:00 Test Item Value Reference Range Interpretation Comments POC-GLUCOSE METER 121 mg/dL 70-110 H : TESTED A T [facility] 6720 (BEAKER) (test code = [facility], 1538) 522[address]: Swim Coach/Techni anne-marie ID = [id number] for La cy (pca2), Victori a POCT-GLUCOSE [id number] 12:54:00 Test Item Value Reference Range Interpretation Comments POC-GLUCOSE METER 102 mg/dL 70-110 : TESTED A T [facility] 6720 (BEAKER) (test code = [facility], 1538) 23570: Swim Coach/Techni anne-marie ID = [id number] for Nanette Abad POCT-GLUCOSE [id number] 06:29:00 Test Item Value Reference Range Interpretation Comments POC-GLUCOSE METER 118 mg/dL 70-110 H : TESTED A T [facility] 6720 (BEAKER) (test code = [facility], 1538) 13848: Swim Coach/Techni anne-marie ID = [id number] for La cy (pca2), Victori a BASIC METABOLIC [id number] 05:04:00 Test Item Value Reference Range Interpretation Comments SODIUM (BEAKER) 150 meq/L 136-145 H (test code = 381) POTASSIUM (BEAKER) 4.4 meq/L 3.5-5.1 (test code = 379) CHLORIDE (BEAKER) 115 meq/L 98-107 H (test code = 382) CO2 (BEAKER) (test 23 meq/L 22-29 code = 355) BLOOD UREA NITROGEN 38 mg/dL 7-21 H (BEAKER) (test code = 354) CREATININE (BEAKER) 1.13 mg/dL 0.57-1.25 (test code = 358) GLUCOSE RANDOM 124 mg/dL 70-105 H (BEAKER) (test code = 652) CALCIUM (BEAKER) 9.8 mg/dL 8.4-10.2 (test code = 697) EGFR (BEAKER) (test 69 mL/min/1.73 ESTIMA HAYDER GFR IS code = 1092) sq m NOT ACCURATE CREATININE CLEARANCE IN PREDICTING GLOMERULAR FILTRATION RATE . ESTIMATED GFR I S NOT APPLICABLE FOR DIALYSIS PATIEN TS. Swim Coach ID - MISAEL [id number] 05:04:00 Test Item Value Reference Range Interpretation Comments MAGNESIUM (BEAKER) (test code = 2.3 mg/dL 1.6-2.6 627) Swim Coach ID - MISAEL [id number] 05:04:00 Test Item Value Reference Range Interpretation Comments PHOSPHORUS (BEAKER) (test code = 3.5 mg/dL 2.3-4.7 604) Swim Coach ID Lucas DOUGLAS WCBC W/PLT COUNT & AUTO [id number] 04:27:00 Test Item Value Reference Range Interpretation Comments WHITE BLOOD CELL COUNT (BEAKER) 6.9 K/ L 3.5-10.5 (test code = 775) RED BLOOD CELL COUNT (BEAKER) 5.13 M/ L 4.63-6.08 (test code = 761) HEMOGLOBIN (BEAKER) (test code = 14.5 GM/DL 13.7-17.5 410) HEMATOCRIT (BEAKER) (test code = 45.1 % 40.1-51.0 411) MEAN CORPUSCULAR VOLUME (BEAKER) 87.9 fL 79.0-92.2 (test code = 753) MEAN CORPUSCULAR HEMOGLOBIN 28.3 pg 25.7-32.2 (BEAKER) (test code = 751) MEAN CORPUSCULAR HEMOGLOBIN CONC 32.2 GM/DL 32.3-36.5 L (BEAKER) (test code = 752) RED CELL DISTRIBUTION WIDTH 13.2 % 11.6-14.4 (BEAKER) (test code = 412) PLATELET COUNT (BEAKER) (test 315 K/CU MM 150-450 code = 756) MEAN PLATELET VOLUME (BEAKER) 9.6 fL 9.4-12.4 (test code = 754) NUCLEATED RED BLOOD CELLS 0 /100 WBC 0-0 (BEAKER) (test code = 413) NEUTROPHILS RELATIVE PERCENT 58 % (BEAKER) (test code = 429) LYMPHOCYTES RELATIVE PERCENT 28 % (BEAKER) (test code = 430) MONOCYTES RELATIVE PERCENT 8 % (BEAKER) (test code = 431) EOSINOPHILS RELATIVE PERCENT 5 % (BEAKER) (test code = 432) BASOPHILS RELATIVE PERCENT 1 % (BEAKER) (test code = 437) NEUTROPHILS ABSOLUTE COUNT 3.99 K/ L 1.78-5.38 (BEAKER) (test code = 670) LYMPHOCYTES ABSOLUTE COUNT 1.91 K/ L 1.32-3.57 (BEAKER) (test code = 414) MONOCYTES ABSOLUTE COUNT (BEAKER) 0.58 K/ L 0.30-0.82 (test code = 415) EOSINOPHILS ABSOLUTE COUNT 0.35 K/ L 0.04-0.54 (BEAKER) (test code = 416) BASOPHILS ABSOLUTE COUNT (BEAKER) 0.06 K/ L 0.01-0.08 (test code = 417) IMMATURE GRANULOCYTES-RELATIVE 0 % 0-1 PERCENT (BEAKER) (test code = 2801) POCT-GLUCOSE [id number] 18:10:00 Test Item Value Reference Range Interpretation Comments POC-GLUCOSE METER 117 mg/dL 70-110 H : TESTED A T [facility] 6720 (BEAKER) (test code = [facility], 1538) 085[address]: Swim Coach/Techni anne-marie ID = [id number] for Harshal Hernandez POCT-GLUCOSE [id number] 16:40:00 Test Item Value Reference Range Interpretation Comments POC-GLUCOSE METER 126 mg/dL 70-110 H : TESTED A T [facility] 6720 (BEAKER) (test code = [facility] [employer] [facility], 1538) 57[address]: Swim Coach/Techni anne-marie ID = [id number] for Harshal Hernandez BASIC METABOLIC [id number] 04:34:00 Test Item Value Reference Range Interpretation Comments SODIUM (BEAKER) 151 meq/L 136-145 H (test code = 381) POTASSIUM (BEAKER) 4.4 meq/L 3.5-5.1 (test code = 379) CHLORIDE (BEAKER) 116 meq/L 98-107 H (test code = 382) CO2 (BEAKER) (test 23 meq/L 22-29 code = 355) BLOOD UREA NITROGEN 38 mg/dL 7-21 H (BEAKER) (test code = 354) CREATININE (BEAKER) 1.19 mg/dL 0.57-1.25 (test code = 358) GLUCOSE RANDOM 116 mg/dL 70-105 H (BEAKER) (test code = 652) CALCIUM (BEAKER) 9.7 mg/dL 8.4-10.2 (test code = 697) EGFR (BEAKER) (test 65 mL/min/1.73 ESTIMA HAYDER GFR IS code = 1092) sq m NOT ACCURATE CREATININE CLEARANCE IN PREDICTING GLOMERULAR FILTRATION RATE . ESTIMATED GFR I S NOT APPLICABLE FOR DIALYSIS PATIEN TS. Swim Coach ID - MISAEL [id number] 04:34:00 Test Item Value Reference Range Interpretation Comments MAGNESIUM (BEAKER) (test code = 2.3 mg/dL 1.6-2.6 627) Swim Coach ID - MISAEL [id number] 04:34:00 Test Item Value Reference Range Interpretation Comments PHOSPHORUS (BEAKER) (test code = 3.4 mg/dL 2.3-4.7 604) Swim Coach ID - MISAEL WCBC W/PLT COUNT & AUTO [id number] 04:15:00 Test Item Value Reference Range Interpretation Comments WHITE BLOOD CELL COUNT (BEAKER) 6.9 K/ L 3.5-10.5 (test code = 775) RED BLOOD CELL COUNT (BEAKER) 4.64 M/ L 4.63-6.08 (test code = 761) HEMOGLOBIN (BEAKER) (test code = 13.3 GM/DL 13.7-17.5 L 410) HEMATOCRIT (BEAKER) (test code = 41.4 % 40.1-51.0 411) MEAN CORPUSCULAR VOLUME (BEAKER) 89.2 fL 79.0-92.2 (test code = 753) MEAN CORPUSCULAR HEMOGLOBIN 28.7 pg 25.7-32.2 (BEAKER) (test code = 751) MEAN CORPUSCULAR HEMOGLOBIN CONC 32.1 GM/DL 32.3-36.5 L (BEAKER) (test code = 752) RED CELL DISTRIBUTION WIDTH 13.3 % 11.6-14.4 (BEAKER) (test code = 412) PLATELET COUNT (BEAKER) (test 317 K/CU MM 150-450 code = 756) MEAN PLATELET VOLUME (BEAKER) 9.6 fL 9.4-12.4 (test code = 754) NUCLEATED RED BLOOD CELLS 0 /100 WBC 0-0 (BEAKER) (test code = 413) NEUTROPHILS RELATIVE PERCENT 61 % (BEAKER) (test code = 429) LYMPHOCYTES RELATIVE PERCENT 24 % (BEAKER) (test code = 430) MONOCYTES RELATIVE PERCENT 9 % (BEAKER) (test code = 431) EOSINOPHILS RELATIVE PERCENT 5 % (BEAKER) (test code = 432) BASOPHILS RELATIVE PERCENT 1 % (BEAKER) (test code = 437) NEUTROPHILS ABSOLUTE COUNT 4.22 K/ L 1.78-5.38 (BEAKER) (test code = 670) LYMPHOCYTES ABSOLUTE COUNT 1.67 K/ L 1.32-3.57 (BEAKER) (test code = 414) MONOCYTES ABSOLUTE COUNT (BEAKER) 0.61 K/ L 0.30-0.82 (test code = 415) EOSINOPHILS ABSOLUTE COUNT 0.35 K/ L 0.04-0.54 (BEAKER) (test code = 416) BASOPHILS ABSOLUTE COUNT (BEAKER) 0.07 K/ L 0.01-0.08 (test code = 417) IMMATURE GRANULOCYTES-RELATIVE 0 % 0-1 PERCENT (BEAKER) (test code = 2801) POCT-GLUCOSE [id number] 01:18:00 Test Item Value Reference Range Interpretation Comments POC-GLUCOSE METER 128 mg/dL 70-110 H : TESTED A T [facility] 6720 (BEAKER) (test code = [facility], 153) 24032: Swim Coach/Techni anne-marie ID = [id number] for Danette Giles POCT-GLUCOSE [id number] 18:40:00 Test Item Value Reference Range Interpretation Comments POC-GLUCOSE METER 118 mg/dL 70-110 H : TESTED A T [facility] 6720 (BEAKER) (test code = [facility], 153) 55031: Swim Coach/Techni anne-marie ID = [id number] for Harshal Hernandez BASIC METABOLIC [id number] 05:57:00 Test Item Value Reference Range Interpretation Comments SODIUM (BEAKER) 150 meq/L 136-145 H (test code = 381) POTASSIUM (BEAKER) 4.1 meq/L 3.5-5.1 (test code = 379) CHLORIDE (BEAKER) 113 meq/L 98-107 H (test code = 382) CO2 (BEAKER) (test 23 meq/L 22-29 code = 355) BLOOD UREA NITROGEN 36 mg/dL 7-21 H (BEAKER) (test code = 354) CREATININE (BEAKER) 1.30 mg/dL 0.57-1.25 H (test code = 358) GLUCOSE RANDOM 103 mg/dL 70-105 (BEAKER) (test code = 652) CALCIUM (BEAKER) 9.4 mg/dL 8.4-10.2 (test code = 697) EGFR (BEAKER) (test 59 mL/min/1.73 ESTIMA HAYDER GFR IS code = 1092) sq m NOT ACCURATE CREATININE CLEARANCE IN PREDICTING GLOMERULAR FILTRATION RATE . ESTIMATED GFR I S NOT APPLICABLE FOR DIALYSIS PATIEN TS. Swim Coach ID - [id number] 05:57:00 Test Item Value Reference Range Interpretation Comments MAGNESIUM (BEAKER) (test code = 2.2 mg/dL 1.6-2.6 627) Swim Coach ID - [id number] 05:57:00 Test Item Value Reference Range Interpretation Comments PHOSPHORUS (BEAKER) (test code = 3.5 mg/dL 2.3-4.7 604) Swim Coach ID - EDASICBC W/PLT COUNT & AUTO [id number] 05:00:00 Test Item Value Reference Range Interpretation Comments WHITE BLOOD CELL COUNT (BEAKER) 6.9 K/ L 3.5-10.5 (test code = 775) RED BLOOD CELL COUNT (BEAKER) 4.44 M/ L 4.63-6.08 L (test code = 761) HEMOGLOBIN (BEAKER) (test code = 12.5 GM/DL 13.7-17.5 L 410) HEMATOCRIT (BEAKER) (test code = 39.1 % 40.1-51.0 L 411) MEAN CORPUSCULAR VOLUME (BEAKER) 88.1 fL 79.0-92.2 (test code = 753) MEAN CORPUSCULAR HEMOGLOBIN 28.2 pg 25.7-32.2 (BEAKER) (test code = 751) MEAN CORPUSCULAR HEMOGLOBIN CONC 32.0 GM/DL 32.3-36.5 L (BEAKER) (test code = 752) RED CELL DISTRIBUTION WIDTH 13.4 % 11.6-14.4 (BEAKER) (test code = 412) PLATELET COUNT (BEAKER) (test 284 K/CU MM 150-450 code = 756) MEAN PLATELET VOLUME (BEAKER) 9.7 fL 9.4-12.4 (test code = 754) NUCLEATED RED BLOOD CELLS 0 /100 WBC 0-0 (BEAKER) (test code = 413) NEUTROPHILS RELATIVE PERCENT 61 % (BEAKER) (test code = 429) LYMPHOCYTES RELATIVE PERCENT 24 % (BEAKER) (test code = 430) MONOCYTES RELATIVE PERCENT 9 % (BEAKER) (test code = 431) EOSINOPHILS RELATIVE PERCENT 5 % (BEAKER) (test code = 432) BASOPHILS RELATIVE PERCENT 1 % (BEAKER) (test code = 437) NEUTROPHILS ABSOLUTE COUNT 4.22 K/ L 1.78-5.38 (BEAKER) (test code = 670) LYMPHOCYTES ABSOLUTE COUNT 1.68 K/ L 1.32-3.57 (BEAKER) (test code = 414) MONOCYTES ABSOLUTE COUNT (BEAKER) 0.60 K/ L 0.30-0.82 (test code = 415) EOSINOPHILS ABSOLUTE COUNT 0.32 K/ L 0.04-0.54 (BEAKER) (test code = 416) BASOPHILS ABSOLUTE COUNT (BEAKER) 0.06 K/ L 0.01-0.08 (test code = 417) IMMATURE GRANULOCYTES-RELATIVE 0 % 0-1 PERCENT (BEAKER) (test code = 2801) POCT-GLUCOSE [id number] 01:08:00 Test Item Value Reference Range Interpretation Comments POC-GLUCOSE METER 101 mg/dL 70-110 : TESTED A T [facility] 6720 (BEAKER) (test code = [facility], 153) 16837: Swim Coach/Techni anne-marie ID = [id number] for Pe lt (pca2), Yecenia POCT-GLUCOSE [id number] 00:15:00 Test Item Value Reference Range Interpretation Comments POC-GLUCOSE METER 96 mg/dL 70-110 : TESTED A T [facility] 6720 (BEAKER) (test code = [facility], 1538) 45215: Swim Coach/Techni anne-marie ID = [id number] for VARE LA, JOB POCT-GLUCOSE [id number] 18:33:00 Test Item Value Reference Range Interpretation Comments POC-GLUCOSE METER 108 mg/dL 70-110 : TESTED A T [facility] 6720 (BEAKER) (test code = [facility], 153) 37216: Swim Coach/Techni anne-marie ID = [id number] for LL OYD, TIKEYA [id number] 15:25:00 Test Item Value Reference Range Interpretation Comments SODIUM (BEAKER) (test code = 381) 149 meq/L 136-145 H Swim Coach ID - ADMINPOCT-GLUCOSE [id number] 11:43:00 Test Item Value Reference Range Interpretation Comments POC-GLUCOSE METER 125 mg/dL 70-110 H : Notified RN/MD: (AN) (test code = TESTED AT [facility] 6720 1538) [facility], [address]: Swim Coach/Techni anne-marie ID = [id number] for GABRIELLE WAYNE POCT-GLUCOSE [id number] 09:37:00 Test Item Value Reference Range Interpretation Comments POC-GLUCOSE METER 95 mg/dL 70-110 : TESTED A T [facility] 67 (AN) (test code = [facility], 1538) 874[address]: Swim Coach/Techni anne-marie ID = [id number] for KAR DOE RAD, CHEST, 1 VIEW, NON [id number] 06:04:00Reason for exam:->eval for pulmonary edea, consolidationsShould this be performed at the bedside?->[facility] 1970 Sex: MFINAL REPORT RAD, CHEST, 1 VIEW, NON DEPT INDICATION: eval for pul monary edea, consolidations COMPARISON: Prior day's exam FINDINGS: Portable frontal view of the chest. IMPRESSION: Support Lines: Stable feeding tube. Lungs and pleura: Hypoinflated lungs with interval decreased congestion. No consolidation or effusion. No pneumothorax.Heart and mediastinum: Stable contours.Additional findings: None. Signed: [facility] Verified Date/Time: 02/19/2021 06:04:05 BASIC METABOLIC [id number] 05:04:00 Test Item Value Reference Range Interpretation Comments SODIUM (BEAKER) 149 meq/L 136-145 H (test code = 381) POTASSIUM (BEAKER) 3.9 meq/L 3.5-5.1 (test code = 379) CHLORIDE (BEAKER) 110 meq/L 98-107 H (test code = 382) CO2 (BEAKER) (test 22 meq/L 22-29 code = 355) BLOOD UREA NITROGEN 37 mg/dL 7-21 H (BEAKER) (test code = 354) CREATININE (BEAKER) 1.50 mg/dL 0.57-1.25 H (test code = 358) GLUCOSE RANDOM 105 mg/dL 70-105 (BEAKER) (test code = 652) CALCIUM (BEAKER) 9.6 mg/dL 8.4-10.2 (test code = 697) EGFR (BEAKER) (test 50 mL/min/1.73 ESTIMA HAYDER GFR IS code = 1092) sq m NOT ACCURATE CREATININE CLEARANCE IN PREDICTING GLOMERULAR FILTRATION RATE . ESTIMATED GFR I S NOT APPLICABLE FOR DIALYSIS PATIEN TS. Swim Coach ID - [id number] 05:04:00 Test Item Value Reference Range Interpretation Comments MAGNESIUM (BEAKER) (test code = 2.2 mg/dL 1.6-2.6 627) Swim Coach ID - [id number] 05:04:00 Test Item Value Reference Range Interpretation Comments PHOSPHORUS (BEAKER) (test code = 4.9 mg/dL 2.3-4.7 H 604) Swim Coach ID - ADMINBLOOD GAS, [id number] 04:20:00 Test Item Value Reference Range Interpretation Comments PH VENOUS (BEAKER) (test code = 7.42 7.32-7.42 701) PCO2 VENOUS (BEAKER) (test code = 40 mm Hg 41-51 L 755) PO2 VENOUS (BEAKER) (test code = 205 mm Hg 25-40 H 702) O2 SATURATION VENOUS (BEAKER) 99.4 % 40.0-70.0 H (test code = 703) HCO3 VENOUS (BEAKER) (test code = 25 mmol/L 21-29 705) BASE EXCESS VENOUS (BEAKER) (test 1.0 mmol/L -2.0-3.0 code = 704) PATIENT TEMPERATURE (BEAKER) (test 37.0 code = 1818) CBC W/PLT COUNT & AUTO [id number] 04:19:00 Test Item Value Reference Range Interpretation Comments WHITE BLOOD CELL COUNT (BEAKER) 7.4 K/ L 3.5-10.5 (test code = 775) RED BLOOD CELL COUNT (BEAKER) 4.55 M/ L 4.63-6.08 L (test code = 761) HEMOGLOBIN (BEAKER) (test code = 13.0 GM/DL 13.7-17.5 L 410) HEMATOCRIT (BEAKER) (test code = 39.5 % 40.1-51.0 L 411) MEAN CORPUSCULAR VOLUME (BEAKER) 86.8 fL 79.0-92.2 (test code = 753) MEAN CORPUSCULAR HEMOGLOBIN 28.6 pg 25.7-32.2 (BEAKER) (test code = 751) MEAN CORPUSCULAR HEMOGLOBIN CONC 32.9 GM/DL 32.3-36.5 (BEAKER) (test code = 752) RED CELL DISTRIBUTION WIDTH 13.3 % 11.6-14.4 (BEAKER) (test code = 412) PLATELET COUNT (BEAKER) (test 267 K/CU MM 150-450 code = 756) MEAN PLATELET VOLUME (BEAKER) 9.3 fL 9.4-12.4 L (test code = 754) NUCLEATED RED BLOOD CELLS 0 /100 WBC 0-0 (BEAKER) (test code = 413) NEUTROPHILS RELATIVE PERCENT 64 % (BEAKER) (test code = 429) LYMPHOCYTES RELATIVE PERCENT 21 % (BEAKER) (test code = 430) MONOCYTES RELATIVE PERCENT 11 % (BEAKER) (test code = 431) EOSINOPHILS RELATIVE PERCENT 4 % (BEAKER) (test code = 432) BASOPHILS RELATIVE PERCENT 1 % (BEAKER) (test code = 437) NEUTROPHILS ABSOLUTE COUNT 4.70 K/ L 1.78-5.38 (BEAKER) (test code = 670) LYMPHOCYTES ABSOLUTE COUNT 1.52 K/ L 1.32-3.57 (BEAKER) (test code = 414) MONOCYTES ABSOLUTE COUNT (BEAKER) 0.81 K/ L 0.30-0.82 (test code = 415) EOSINOPHILS ABSOLUTE COUNT 0.30 K/ L 0.04-0.54 (BEAKER) (test code = 416) BASOPHILS ABSOLUTE COUNT (BEAKER) 0.05 K/ L 0.01-0.08 (test code = 417) IMMATURE GRANULOCYTES-RELATIVE 0 % 0-1 PERCENT (BEAKER) (test code = 2801) POCT-GLUCOSE [id number] 23:39:00 Test Item Value Reference Range Interpretation Comments POC-GLUCOSE METER 111 mg/dL 70-110 H : TESTED A T [facility] 6720 ([employer]) (test code = [facility], 1538) [address]: Swim Coach/Techni anne-marie ID = [id number] for LE IJA, AURA VANCOMYCIN LEVEL, [id number] 22:27:00 Test Item Value Reference Range Interpretation Comments VANCOMYCIN TROUGH (BEAKER) (test 18.3 ug/mL 10.0-20.0 code = 522) Swim Coach ID - LUISSONB-TYPE NATRIURETIC FACTOR (BNP)2021-02-18 19:14:00 Test Item Value Reference Range Interpretation Comments B-TYPE NATRIURETIC PEPTIDE (BEAKER) 49 pg/mL 0-100 (test code = 700) Swim Coach ID - EMERSONPOCT-GLUCOSE [id number] 16:14:00 Test Item Value Reference Range Interpretation Comments POC-GLUCOSE METER 109 mg/dL 70-110 : TESTED A T [facility] 6720 ([employer]) (test code = [facility], 1538) [address]: Swim Coach/Techni anne-marie ID = [id number] for St e[place]oe, Colleen B-TYPE NATRIURETIC FACTOR (BNP)2021-02-18 13:12:00 Test Item Value Reference Range Interpretation Comments B-TYPE NATRIURETIC PEPTIDE (BEAKER) 52 pg/mL 0-100 (test code = 700) Swim Coach ID - DAPHNE CPOCT-GLUCOSE [id number] 12:13:00 Test Item Value Reference Range Interpretation Comments POC-GLUCOSE METER 97 mg/dL 70-110 : TESTED A T [facility] 6720 ([employer]) (test code = [facility], 1538) 37225: Swim Coach/Techni anne-marie ID = [id number] for Step toe, Colleen POCT-GLUCOSE [id number] 05:40:00 Test Item Value Reference Range Interpretation Comments POC-GLUCOSE METER 112 mg/dL 70-110 H : TESTED A T [facility] 6720 (AN) (test code = [facility] [place], 1538) [address]: Swim Coach/Techni anne-marie ID = [id number] for KAR IBRAHIM SARS-COV2/RT-PCR ([facility])2021-02-18 04:06:00 Test Item Value Reference Range Interpretation Comments SARS-COV2/RT-PCR (test Negative Not Detected, Negative, code = 8382132) See external report for linked test SARS-COV-[address] [facility] ROBYN (test code = 5097713) Negative result for this test determines that SARS-CoV-2 RNA was not present in the specimen above the Limit of Detection (LOD). However, Negative results do not preclude SARS-CoV-2 infection and should not be used as the sole basis for treatment or patient management decisions. Negative results mustbe combined with clinical observations, patient history, and epidemiological information. A false negative result may occur if a specimen is improperly collected, transported or handled. A false negative result should be considered if patient's recent exposures or clinical presentation indicate that COVID-19 (SARS-CoV-2) is likely and diagnostic tests for other causes of illness are negative. Re-testing should be considered in cases of suspected false negatives.The limit of detection for this assay is 100 copies/mL.This SARS CoV-2 test is a real-time RT-PCR test intended for the qualitative detection of nucleic acid from SARS-CoV-2 in a nasopharyngeal swab specimen collected from individuals suspected of COVID-19 by their healthcare provider.This test has not been Food and Drug Administration (FDA) cleared or approved. This is a modified version of an approved Emergency Use Authorization (EUA) and is in the process of review by the FDA. Once authorized by the FDA, the issued EUA will be effective until the declaration that circumstances exist justifying the authorization of the emergency use of in vitro diagnostic tests for detection and/or diagnosis of COVID-19 is terminated under Section 564(b)(2) of the Act or the EUA is revoked under Section 564(g) of the Act.Testing was performed using the [place] SARS-CoV-2 assay.Fact Sheet for Healthcare Providers:https://www.BankFacil/umberto/ BY_CDNK-PdM-8_SLB_Aaox_Lfkad_66-296225.pdfFact Sheet for Healthcare Patients:https://www.molecular.ab brendan/umberto/VB_ZAVR-HcO-1_Axaxbux_Xlhf_Qjzxh_UU_[email or web address].pdfPerforming Laboratory:[facility] [place] [address] [id number] 03:51:00 Test Item Value Reference Range Interpretation Comments MAGNESIUM (BEAKER) 2.4 mg/dL 1.6-2.6 Specimen slightly (test code = 627) hemolyzed Swim Coach ID - PIAYA [id number] 03:51:00 Test Item Value Reference Range Interpretation Comments PHOSPHORUS (BEAKER) 4.0 mg/dL 2.3-4.7 Specimen slightly (test code = 604) hemolyzed Swim Coach ID - PIAYA LBASIC METABOLIC [id number] 03:51:00 Test Item Value Reference Range Interpretation Comments SODIUM (BEAKER) 145 meq/L 136-145 (test code = 381) POTASSIUM (BEAKER) 3.8 meq/L 3.5-5.1 Specimen slightly (test code = 379) hemolyzed CHLORIDE (BEAKER) 112 meq/L 98-107 H (test code = 382) CO2 (BEAKER) (test 18 meq/L 22-29 L code = 355) BLOOD UREA NITROGEN 39 mg/dL 7-21 H (BEAKER) (test code = 354) CREATININE (BEAKER) 1.49 mg/dL 0.57-1.25 H Specimen slightly (test code = 358) hemolyzed GLUCOSE RANDOM 104 mg/dL 70-105 (BEAKER) (test code = 652) CALCIUM (BEAKER) 8.8 mg/dL 8.4-10.2 (test code = 697) EGFR (BEAKER) (test 50 mL/min/1.73 ESTIMA HAYDER GFR IS code = 1092) sq m NOT ACCURATE CREATININE CLEARANCE IN PREDICTING GLOMERULAR FILTRATION RATE . ESTIMATED GFR I S NOT APPLICABLE FOR DIALYSIS PATIEN TS. Swim Coach ID - PIAYA LCBC W/PLT COUNT & AUTO [id number] 03:29:00 Test Item Value Reference Range Interpretation Comments WHITE BLOOD CELL COUNT (BEAKER) 8.8 K/ L 3.5-10.5 (test code = 775) RED BLOOD CELL COUNT (BEAKER) 4.41 M/ L 4.63-6.08 L (test code = 761) HEMOGLOBIN (BEAKER) (test code = 12.7 GM/DL 13.7-17.5 L 410) HEMATOCRIT (BEAKER) (test code = 37.9 % 40.1-51.0 L 411) MEAN CORPUSCULAR VOLUME (BEAKER) 85.9 fL 79.0-92.2 (test code = 753) MEAN CORPUSCULAR HEMOGLOBIN 28.8 pg 25.7-32.2 (BEAKER) (test code = 751) MEAN CORPUSCULAR HEMOGLOBIN CONC 33.5 GM/DL 32.3-36.5 (BEAKER) (test code = 752) RED CELL DISTRIBUTION WIDTH 13.6 % 11.6-14.4 (BEAKER) (test code = 412) PLATELET COUNT (BEAKER) (test 231 K/CU MM 150-450 code = 756) MEAN PLATELET VOLUME (BEAKER) 9.9 fL 9.4-12.4 (test code = 754) NUCLEATED RED BLOOD CELLS 0 /100 WBC 0-0 (BEAKER) (test code = 413) NEUTROPHILS RELATIVE PERCENT 69 % (BEAKER) (test code = 429) LYMPHOCYTES RELATIVE PERCENT 18 % (BEAKER) (test code = 430) MONOCYTES RELATIVE PERCENT 10 % (BEAKER) (test code = 431) EOSINOPHILS RELATIVE PERCENT 2 % (BEAKER) (test code = 432) BASOPHILS RELATIVE PERCENT 1 % (BEAKER) (test code = 437) NEUTROPHILS ABSOLUTE COUNT 6.08 K/ L 1.78-5.38 H (BEAKER) (test code = 670) LYMPHOCYTES ABSOLUTE COUNT 1.58 K/ L 1.32-3.57 (BEAKER) (test code = 414) MONOCYTES ABSOLUTE COUNT (BEAKER) 0.92 K/ L 0.30-0.82 H (test code = 415) EOSINOPHILS ABSOLUTE COUNT 0.13 K/ L 0.04-0.54 (BEAKER) (test code = 416) BASOPHILS ABSOLUTE COUNT (BEAKER) 0.06 K/ L 0.01-0.08 (test code = 417) IMMATURE GRANULOCYTES-RELATIVE 1 % 0-1 PERCENT (BEAKER) (test code = 2801) BLOOD GAS, [id number] 03:28:00 Test Item Value Reference Range Interpretation Comments PH ARTERIAL (BEAKER) (test code = 7.42 7.35-7.45 383) PCO2 ARTERIAL (BEAKER) (test code 33 mm Hg 35-45 L = 384) PO2 ARTERIAL (BEAKER) (test code 207 mm Hg 80-90 H = 385) O2 SATURATION ARTERIAL (BEAKER) 99.4 % 96.0-97.0 H (test code = 386) HCO3 ARTERIAL (BEAKER) (test code 21 mmol/L 21-29 = 388) BASE EXCESS ARTERIAL (BEAKER) -2.3 mmol/L -2.0-3.0 L (test code = 387) PATIENT TEMPERATURE (BEAKER) 36.7 (test code = 1818) FIO2 (BEAKER) (test code = 1819) 40.0 POCT-GLUCOSE [id number] 23:40:00 Test Item Value Reference Range Interpretation Comments POC-GLUCOSE METER 97 mg/dL 70-110 : TESTED A T [facility] 6720 (BEAKER) (test code = [place], 1538) [address]: Swim Coach/Techni anne-marie ID = [id number] for LEIJ A, AURA RAD, CHEST, 1 VIEW, NON [id number] 19:07:00Reason for exam:->Shortness of BreathShould this be performed at the bedside?->Yes [facility] 1970 Sex: MFINAL REPORT History: Shortness of breath. FINDINGS: Compared with earlier film the same date, the heart and mediastinum are stable. As before, the heart is mildly enlarged. Mild increased pulmonary vascularity is present without overt edema. No large pleural effusions. No pneumothorax. Lung volumes remain low. Bones are unremarkable. IMPRESSION: 1. Stable chest. Signed: Judith Thompson MDReport Verified Date/Time: 02/17/2021 19:07:03 Reading Location: [facility] Women POCT-GLUCOSE [id number] 18:09:00 Test Item Value Reference Range Interpretation Comments POC-GLUCOSE METER 110 mg/dL 70-110 : TESTED A T [facility] 6720 (BEAKER) (test code = MARKO Moore [facility], 1538) [address]: Swim Coach/Techni anne-marie ID = [id number] for Sharon Colón BLOOD GAS, [id number] 17:53:00 Test Item Value Reference Range Interpretation Comments PH ARTERIAL (BEAKER) (test code = 7.43 7.35-7.45 383) PCO2 ARTERIAL (BEAKER) (test code 35 mm Hg 35-45 = 384) PO2 ARTERIAL (BEAKER) (test code 203 mm Hg 80-90 H = 385) O2 SATURATION ARTERIAL (BEAKER) 99.4 % 96.0-97.0 H (test code = 386) HCO3 ARTERIAL (BEAKER) (test code 22 mmol/L 21-29 = 388) BASE EXCESS ARTERIAL (BEAKER) -1.3 mmol/L -2.0-3.0 (test code = 387) PATIENT TEMPERATURE (BEAKER) 38.0 (test code = 1818) FIO2 (BEAKER) (test code = 1819) 40.0 CT BRAIN WITHOUT IV CONTRAST - [id number] 17:43:00Unlisted Reason for Exam - Click Yes and Enter Reason Below->No [facility] : 1970 Sex: MFINAL REPORT CT BRAIN WITHOUT IV CONTRAST - PORTABLE INDICATION: A ltered mental status TECHNIQUE: Noncontrast axial imaging was obtained from the vertex to the skull base. Axial images were reconstructed using a bone algorithm. DOSE REDUCTION: Dose modulation, iterative reconstruction, and/or weight-based adjustment of the mA/kV was utilized to reduce the radiation dose to as low as reasonably achievable. COMPARISON: CT 02/13/2021 FINDINGS: Intracranial: Exam is severely degraded by motion. Parenchymal hematoma within the right basal ganglia is slightly decreased insize, similar to preoperative surrounding edema and mass effect. No new site of hemorrhage. No significant change in mild leftward midline shift. No hydrocephalus. Due to motion blurring the romo-white junctions, exam is nondiagnostic for infarct. Osseous structures: No fracture. No suspicious lesion. Paranasal sinuses and mastoid air cells: No evidence of sinusitis. Mastoids are clear. Orbital contents: Globes are intact. IMPRESSION: Severely motion-degraded exam. Right basal ganglia parenchymal hematoma is similar to slightly decreased in size. No significant change in mass effect. Signed: Trupti Viramontes Verified Date/Time: 02/17/2021 17:43:19 POCT-GLUCOSE [id number] 12:08:00 Test Item Value Reference Range Interpretation Comments POC-GLUCOSE METER 141 mg/dL 70-110 H : TESTED A T [facility] 6720 (BEFastDue) (test code = MARKO Moore [facility], 1538) [address]: Swim Coach/Techni anne-marie ID = [id number] for Penny rSharon [id number] 12:02:00 Test Item Value Reference Range Interpretation Comments PROCALCITONIN (BEAKER) (test code 1.00 ng/mL <0.05 H = 3036) SEPSIS RISK (ng/mL)Low: 0.05-0.50Intermediate: 0.51-2.00High: >=2.01LACTIC ACID, [id number] 11:31:00 Test Item Value Reference Range Interpretation Comments LACTATE BLOOD VENOUS 1.26 mmol/L 0.50-2.20 Specime n moderately (2) (AN) (test hemolyzed code = 2872) Swim Coach ID - BO CHEST, 1 VIEW, NON [id number] 08:26:00Reason for exam:->pulmonary edema follow-upShould this be performed at the bedside?->[facility] : 1970 Sex: MFINAL REPORT CLINICAL HISTORY: pulmonary edema follow-up TECHNIQUE: 1 view of the chest. COMPARISON: 02/16/2021 IMPRESSION: A feeding tube is again seen. Bilateral airspace opacities are grossly unchanged. Subpulmonic pleural effusions cannot be excluded. The cardiomediastinal silhouette is magnified by technique. Signed: Lenka Wilburneport Verified Date/Time: 02/2021 08:26:43 Reading Location: [facility] Radiology Reading Room POCT- GLUCOSE [id number] 06:32:00 Test Item Value Reference Range Interpretation Comments POC-GLUCOSE METER 114 mg/dL 70-110 H : TESTED A T [facility] 6720 (AN) (test code = ARELIENRIQUE [place], 1538) [address]: Swim Coach/Techni anne-marie ID = [id number] for Olimpia Sy BASIC METABOLIC [id number] 04:18:00 Test Item Value Reference Range Interpretation Comments SODIUM (AN) 141 meq/L 136-145 (test code = 381) POTASSIUM (BEAKER) 3.6 meq/L 3.5-5.1 (test code = 379) CHLORIDE (BEAKER) 107 meq/L 98-107 (test code = 382) CO2 (BEAKER) (test 20 meq/L 22-29 L code = 355) BLOOD UREA NITROGEN 34 mg/dL 7-21 H (BEAKER) (test code = 354) CREATININE (BEAKER) 1.03 mg/dL 0.57-1.25 (test code = 358) GLUCOSE RANDOM 126 mg/dL 70-105 H (BEAKER) (test code = 652) CALCIUM (BEAKER) 8.8 mg/dL 8.4-10.2 (test code = 697) EGFR (BEAKER) (test 77 mL/min/1.73 ESTIMA HAYDER GFR IS code = 1092) sq m NOT ACCURATE CREATININE CLEARANCE IN PREDICTING GLOMERULAR FILTRATION RATE . ESTIMATED GFR I S NOT APPLICABLE FOR DIALYSIS PATIEN TS. Swim Coach ID Lucas DOUGLAS [id number] 04:18:00 Test Item Value Reference Range Interpretation Comments MAGNESIUM (BEAKER) (test code = 2.2 mg/dL 1.6-2.6 627) Swim Coach ID - MISAEL [id number] 04:18:00 Test Item Value Reference Range Interpretation Comments PHOSPHORUS (BEAKER) (test code = 2.5 mg/dL 2.3-4.7 604) Swim Coach ID Lucas DOUGLAS WB-TYPE NATRIURETIC FACTOR (BNP)2021-02-17 03:30:00 Test Item Value Reference Range Interpretation Comments B-TYPE NATRIURETIC PEPTIDE (BEAKER) 125 pg/mL 0-100 H (test code = 700) Swim Coach ID Lucas CEBALLOS LCBC W/PLT COUNT & AUTO [id number] 02:56:00 Test Item Value Reference Range Interpretation Comments WHITE BLOOD CELL COUNT (BEAKER) 9.7 K/ L 3.5-10.5 (test code = 775) RED BLOOD CELL COUNT (BEAKER) 4.10 M/ L 4.63-6.08 L (test code = 761) HEMOGLOBIN (BEAKER) (test code = 11.8 GM/DL 13.7-17.5 L 410) HEMATOCRIT (BEAKER) (test code = 35.3 % 40.1-51.0 L 411) MEAN CORPUSCULAR VOLUME (BEAKER) 86.1 fL 79.0-92.2 (test code = 753) MEAN CORPUSCULAR HEMOGLOBIN 28.8 pg 25.7-32.2 (BEAKER) (test code = 751) MEAN CORPUSCULAR HEMOGLOBIN CONC 33.4 GM/DL 32.3-36.5 (BEAKER) (test code = 752) RED CELL DISTRIBUTION WIDTH 13.4 % 11.6-14.4 (BEAKER) (test code = 412) PLATELET COUNT (BEAKER) (test 207 K/CU MM 150-450 code = 756) MEAN PLATELET VOLUME (BEAKER) 9.7 fL 9.4-12.4 (test code = 754) NUCLEATED RED BLOOD CELLS 0 /100 WBC 0-0 (BEAKER) (test code = 413) NEUTROPHILS RELATIVE PERCENT 72 % (BEAKER) (test code = 429) LYMPHOCYTES RELATIVE PERCENT 16 % (BEAKER) (test code = 430) MONOCYTES RELATIVE PERCENT 10 % (BEAKER) (test code = 431) EOSINOPHILS RELATIVE PERCENT 2 % (BEAKER) (test code = 432) BASOPHILS RELATIVE PERCENT 0 % (BEAKER) (test code = 437) NEUTROPHILS ABSOLUTE COUNT 6.99 K/ L 1.78-5.38 H (BEAKER) (test code = 670) LYMPHOCYTES ABSOLUTE COUNT 1.51 K/ L 1.32-3.57 (BEAKER) (test code = 414) MONOCYTES ABSOLUTE COUNT (BEAKER) 0.95 K/ L 0.30-0.82 H (test code = 415) EOSINOPHILS ABSOLUTE COUNT 0.17 K/ L 0.04-0.54 (BEAKER) (test code = 416) BASOPHILS ABSOLUTE COUNT (BEAKER) 0.04 K/ L 0.01-0.08 (test code = 417) IMMATURE GRANULOCYTES-RELATIVE 0 % 0-1 PERCENT (BEAKER) (test code = 2801) BLOOD GAS, [id number] 02:45:00 Test Item Value Reference Range Interpretation Comments PH ARTERIAL (BEAKER) (test code = 7.44 7.35-7.45 383) PCO2 ARTERIAL (BEAKER) (test code 38 mm Hg 35-45 = 384) PO2 ARTERIAL (BEAKER) (test code = 155 mm Hg 80-90 H 385) O2 SATURATION ARTERIAL (BEAKER) 99.1 % 96.0-97.0 H (test code = 386) HCO3 ARTERIAL (BEAKER) (test code 25 mmol/L 21-29 = 388) BASE EXCESS ARTERIAL (BEAKER) 1.1 mmol/L -2.0-3.0 (test code = 387) PATIENT TEMPERATURE (BEAKER) (test 37.2 code = 1818) FIO2 (BEAKER) (test code = 1819) 40.0 POCT-GLUCOSE [id number] 00:04:00 Test Item Value Reference Range Interpretation Comments POC-GLUCOSE METER 116 mg/dL 70-110 H : TESTED A T [facility] 6720 (BEAKER) (test code = [facility], 1538) [address]: Swim Coach/Techni anne-marie ID = [id number] for Go Olimpia alfaro POCT-GLUCOSE [id number] 17:32:00 Test Item Value Reference Range Interpretation Comments POC-GLUCOSE METER 121 mg/dL 70-110 H : TESTED A T [facility] 6720 (BEAKER) (test code = [facility], 1538) [address]: Swim Coach/Techni anne-marie ID = [id number] for Pa susan (pca2), Doretha POCT-GLUCOSE [id number] 12:15:00 Test Item Value Reference Range Interpretation Comments POC-GLUCOSE METER 128 mg/dL 70-110 H : TESTED A T [facility] 6720 (BEAKER) (test code = [facility], 1538) [address]: Swim Coach/Techni anne-marie ID = [id number] for Pa susan (pca2), Doretha RAD, ABDOMEN/KUB, 1 VIEW [id number] 10:44:00Reason for exam:->Corpak repositioned. [facility] 1970 Sex: MFINAL REPORT CLINICAL HISTORY: Corpak repositioned. Reassess placement TECHNIQUE: Supine abdomen COMPARISON: 02/16/2021 IMPRESSION: The feeding tube has been advanced more distally in the stomach.The bowel gas pattern is nonspecific. Free air and air-fluid levels are not definitively seen, but also cannot be excluded on the supine view. Signed: Lenka Wilburn Verified Date/Time: 02/16/2021 10:44:06 Reading Location: [facility] Radiology Reading Room RAD, CHEST, 1 VIEW, NON [id number] 08:39:00Reason for exam:- >fever, leukocytosisShould this be performed at the bedside?->Yes [facility] 1970 Sex: MFINAL REPORT CLINICAL HISTORY: fever, leukocytosis TECHNIQUE: 1 view of the chest. COMPARISON: 02/14/2021 IMPRESSION: A feeding tube is again seen. The NGT has been removed. Diffuse bilateral airspace opacities and small pleural effusions are similar. The cardiomediastinal silhouette is magnified by technique. Signed: Lenka Wilburn Verified Date/Time: 02/16/2021 08:39:54 Reading Location: [facility] Radiology Reading Room RAD, ABDOMEN/KUB, 1 VIEW [id number] 08:37:00Reason for exam:->replaced Corpak, [facility] : 1970 Sex: MFINAL REPORT CLINICAL HISTORY: replaced Corpak, assess placement TECHNIQUE: Supine abdomen IMPRESSION: The tip of the feeding tube is in the upper stomach with advancement recommended. The partially visualized bowel gas pattern is nonspecific. Signed: Lenka Wilburn MDReport Verified Date/Time: 02/16/2021 08:37:33 Reading Location: [facility] Radiology Reading Room POCT-GLUCOSE [id number] 06:11:00 Test Item Value Reference Range Interpretation Comments POC-GLUCOSE METER 121 mg/dL 70-110 H : TESTED A T [facility] 6720 (BEAKER) (test code = [place], 1538) [address]: Swim Coach/Techni anne-marie ID = [id number] for LE KAR SAM B-TYPE NATRIURETIC FACTOR (BNP)2021-02-16 03:30:00 Test Item Value Reference Range Interpretation Comments B-TYPE NATRIURETIC PEPTIDE (BEAKER) 178 pg/mL 0-100 H (test code = 700) Swim Coach ID - JENY [id number] 03:23:00 Test Item Value Reference Range Interpretation Comments MAGNESIUM (BEAKER) 2.3 mg/dL 1.6-2.6 Specimen slightly (test code = 627) hemolyzed Swim Coach ID - JENY [id number] 03:23:00 Test Item Value Reference Range Interpretation Comments PHOSPHORUS (BEAKER) 3.1 mg/dL 2.3-4.7 Specimen slightly (test code = 604) hemolyzed Swim Coach ID - JENY MBASIC METABOLIC [id number] 03:23:00 Test Item Value Reference Range Interpretation Comments SODIUM (BEAKER) 139 meq/L 136-145 (test code = 381) POTASSIUM (BEAKER) 4.2 meq/L 3.5-5.1 Specimen slightly (test code = 379) hemolyzed CHLORIDE (BEAKER) 108 meq/L 98-107 H (test code = 382) CO2 (BEAKER) (test 20 meq/L 22-29 L code = 355) BLOOD UREA NITROGEN 28 mg/dL 7-21 H (BEAKER) (test code = 354) CREATININE (BEAKER) 1.25 mg/dL 0.57-1.25 Specimen slightly (test code = 358) hemolyzed GLUCOSE RANDOM 113 mg/dL 70-105 H (BEAKER) (test code = 652) CALCIUM (BEAKER) 8.6 mg/dL 8.4-10.2 (test code = 697) EGFR (BEAKER) (test 61 mL/min/1.73 ESTIMA HAYDER GFR IS code = 1092) sq m NOT ACCURATE CREATININE CLEARANCE IN PREDICTING GLOMERULAR FILTRATION RATE . ESTIMATED GFR I S NOT APPLICABLE FOR DIALYSIS PATIEN TS. Swim Coach ID - JENY MCBC W/PLT COUNT & AUTO [id number] 03:08:00 Test Item Value Reference Range Interpretation Comments WHITE BLOOD CELL COUNT (BEAKER) 11.9 K/ L 3.5-10.5 H (test code = 775) RED BLOOD CELL COUNT (BEAKER) 4.14 M/ L 4.63-6.08 L (test code = 761) HEMOGLOBIN (BEAKER) (test code = 11.9 GM/DL 13.7-17.5 L 410) HEMATOCRIT (BEAKER) (test code = 35.3 % 40.1-51.0 L 411) MEAN CORPUSCULAR VOLUME (BEAKER) 85.3 fL 79.0-92.2 (test code = 753) MEAN CORPUSCULAR HEMOGLOBIN 28.7 pg 25.7-32.2 (BEAKER) (test code = 751) MEAN CORPUSCULAR HEMOGLOBIN CONC 33.7 GM/DL 32.3-36.5 (BEAKER) (test code = 752) RED CELL DISTRIBUTION WIDTH 13.5 % 11.6-14.4 (BEAKER) (test code = 412) PLATELET COUNT (BEAKER) (test 215 K/CU MM 150-450 code = 756) MEAN PLATELET VOLUME (BEAKER) 9.7 fL 9.4-12.4 (test code = 754) NUCLEATED RED BLOOD CELLS 0 /100 WBC 0-0 (BEAKER) (test code = 413) NEUTROPHILS RELATIVE PERCENT 74 % (BEAKER) (test code = 429) LYMPHOCYTES RELATIVE PERCENT 14 % (BEAKER) (test code = 430) MONOCYTES RELATIVE PERCENT 11 % (BEAKER) (test code = 431) EOSINOPHILS RELATIVE PERCENT 1 % (BEAKER) (test code = 432) BASOPHILS RELATIVE PERCENT 0 % (BEAKER) (test code = 437) NEUTROPHILS ABSOLUTE COUNT 8.78 K/ L 1.78-5.38 H (BEAKER) (test code = 670) LYMPHOCYTES ABSOLUTE COUNT 1.64 K/ L 1.32-3.57 (BEAKER) (test code = 414) MONOCYTES ABSOLUTE COUNT (BEAKER) 1.29 K/ L 0.30-0.82 H (test code = 415) EOSINOPHILS ABSOLUTE COUNT 0.10 K/ L 0.04-0.54 (BEAKER) (test code = 416) BASOPHILS ABSOLUTE COUNT (BEAKER) 0.04 K/ L 0.01-0.08 (test code = 417) IMMATURE GRANULOCYTES-RELATIVE 1 % 0-1 PERCENT (BEAKER) (test code = 2801) POCT-GLUCOSE [id number] 00:10:00 Test Item Value Reference Range Interpretation Comments POC-GLUCOSE METER 116 mg/dL 70-110 H : [facility] (BEAKER) (test code = [place], 1538) [address]: Swim Coach/Techni anne-marie ID = [id number] for KAR IBRAHIM B-TYPE NATRIURETIC FACTOR (BNP)2021-02-15 20:07:00 Test Item Value Reference Range Interpretation Comments B-TYPE NATRIURETIC PEPTIDE (BEAKER) 206 pg/mL 0-100 H (test code = 700) Swim Coach ID - DBBASIC METABOLIC [id number] 19:59:00 Test Item Value Reference Range Interpretation Comments SODIUM (BEAKER) 137 meq/L 136-145 (test code = 381) POTASSIUM (BEAKER) 3.7 meq/L 3.5-5.1 (test code = 379) CHLORIDE (BEAKER) 106 meq/L 98-107 (test code = 382) CO2 (BEAKER) (test 22 meq/L 22-29 code = 355) BLOOD UREA NITROGEN 26 mg/dL 7-21 H (BEAKER) (test code = 354) CREATININE (BEAKER) 1.26 mg/dL 0.57-1.25 H (test code = 358) GLUCOSE RANDOM 108 mg/dL 70-105 H (BEAKER) (test code = 652) CALCIUM (BEAKER) 8.7 mg/dL 8.4-10.2 (test code = 697) EGFR (BEAKER) (test 61 mL/min/1.73 ESTIMA HAYDER GFR IS code = 1092) sq m NOT ACCURATE CREATININE CLEARANCE IN PREDICTING GLOMERULAR FILTRATION RATE . ESTIMATED GFR I S NOT APPLICABLE FOR DIALYSIS PATIEN TS. Swim Coach ID - DBPOCT-GLUCOSE [id number] 17:58:00 Test Item Value Reference Range Interpretation Comments POC-GLUCOSE METER 107 mg/dL 70-110 : TESTED A T [facility] 6720 (BEAKER) (test code = [place], 1538) [address]: Swim Coach/Techni anne-marie ID = [id number] for SALLY BENSON B-TYPE NATRIURETIC FACTOR (BNP)2021-02-15 12:16:00 Test Item Value Reference Range Interpretation Comments B-TYPE NATRIURETIC PEPTIDE (BEAKER) 310 pg/mL 0-100 H (test code = 700) Swim Coach ID - ABERDEEN FBASIC METABOLIC [id number] 12:11:00 Test Item Value Reference Range Interpretation Comments SODIUM (BEAKER) 136 meq/L 136-145 (test code = 381) POTASSIUM (BEAKER) 3.8 meq/L 3.5-5.1 (test code = 379) CHLORIDE (BEAKER) 107 meq/L 98-107 (test code = 382) CO2 (BEAKER) (test 19 meq/L 22-29 L code = 355) BLOOD UREA NITROGEN 26 mg/dL 7-21 H (BEAKER) (test code = 354) CREATININE (BEAKER) 1.33 mg/dL 0.57-1.25 H (test code = 358) GLUCOSE RANDOM 110 mg/dL 70-105 H (BEAKER) (test code = 652) CALCIUM (BEAKER) 8.6 mg/dL 8.4-10.2 (test code = 697) EGFR (BEAKER) (test 57 mL/min/1.73 ESTIMA HAYDER GFR IS code = 1092) sq m NOT ACCURATE CREATININE CLEARANCE IN PREDICTING GLOMERULAR FILTRATION RATE . ESTIMATED GFR I S NOT APPLICABLE FOR DIALYSIS PATIEN TS. Swim Coach ID - MARIE [id number] 12:11:00 Test Item Value Reference Range Interpretation Comments SODIUM (BEAKER) (test code = 381) 136 meq/L 136-145 POCT-GLUCOSE [id number] 12:08:00 Test Item Value Reference Range Interpretation Comments POC-GLUCOSE METER 94 mg/dL 70-110 : TESTED A T [facility] 6720 (BEAKER) (test code = [facility], 1538) [address]: Swim Coach/Techni anne-marie ID = [id number] for GABRIELLE GUZMAN [id number] 08:10:00 Test Item Value Reference Range Interpretation Comments SODIUM (BEAKER) (test code = 381) 135 meq/L 136-145 L Swim Coach ID - MARIE FHIGH SENSITIVITY TROPONIN [id number] 06:46:00 Test Item Value Reference Range Interpretation Comments HIGH SENSITIVITY 243 pg/ml See_Comment H [Automated message] TROPONIN I (test code The sy stem which = [id number]) generated this result transmitted ref erence range: <=35. Th e reference range was not used to int erpret this result as normal/abnormal . Swim Coach ID - LNI LThe ASSET AVAILABILITY LEADER STAT High Sensitivity Troponin-I results should be used in conjunction with other diagnostic information such as ECG, clinical observations and information, and patient symptoms to aid in the diagnosis of MD.POCT-GLUCOSE [id number] 06:09:00 Test Item Value Reference Range Interpretation Comments POC-GLUCOSE METER 120 mg/dL 70-110 H : TESTED A T [facility] 6720 (BEAKER) (test code = [facility] [employer] [facility], 1538) 15[address]: Swim Coach/Techni anne-marie ID = [id number] for Jimmy Chau BASIC METABOLIC [id number] 03:56:00 Test Item Value Reference Range Interpretation Comments SODIUM (BEAKER) 134 meq/L 136-145 L (test code = 381) POTASSIUM (BEAKER) 4.2 meq/L 3.5-5.1 (test code = 379) CHLORIDE (BEAKER) 107 meq/L 98-107 (test code = 382) CO2 (BEAKER) (test 16 meq/L 22-29 L code = 355) BLOOD UREA NITROGEN 25 mg/dL 7-21 H (BEAKER) (test code = 354) CREATININE (BEAKER) 1.42 mg/dL 0.57-1.25 H (test code = 358) GLUCOSE RANDOM 127 mg/dL 70-105 H (BEAKER) (test code = 652) CALCIUM (BEAKER) 8.7 mg/dL 8.4-10.2 (test code = 697) EGFR (BEAKER) (test 53 mL/min/1.73 ESTIMA HAYDER GFR IS code = 1092) sq m NOT ACCURATE CREATININE CLEARANCE IN PREDICTING GLOMERULAR FILTRATION RATE . ESTIMATED GFR I S NOT APPLICABLE FOR DIALYSIS PATIEN TS. Swim Coach ID - LIN [id number] 03:56:00 Test Item Value Reference Range Interpretation Comments MAGNESIUM (BEAKER) (test code = 2.4 mg/dL 1.6-2.6 627) Swim Coach ID - LIN [id number] 03:56:00 Test Item Value Reference Range Interpretation Comments PHOSPHORUS (BEAKER) (test code = 2.5 mg/dL 2.3-4.7 604) Swim Coach ID - LIN LCBC W/PLT COUNT & AUTO [id number] 03:47:00 Test Item Value Reference Range Interpretation Comments WHITE BLOOD CELL COUNT (BEAKER) 13.8 K/ L 3.5-10.5 H (test code = 775) RED BLOOD CELL COUNT (BEAKER) 4.37 M/ L 4.63-6.08 L (test code = 761) HEMOGLOBIN (BEAKER) (test code = 12.5 GM/DL 13.7-17.5 L 410) HEMATOCRIT (BEAKER) (test code = 37.6 % 40.1-51.0 L 411) MEAN CORPUSCULAR VOLUME (BEAKER) 86.0 fL 79.0-92.2 (test code = 753) MEAN CORPUSCULAR HEMOGLOBIN 28.6 pg 25.7-32.2 (BEAKER) (test code = 751) MEAN CORPUSCULAR HEMOGLOBIN CONC 33.2 GM/DL 32.3-36.5 (BEAKER) (test code = 752) RED CELL DISTRIBUTION WIDTH 13.3 % 11.6-14.4 (BEAKER) (test code = 412) PLATELET COUNT (BEAKER) (test 227 K/CU MM 150-450 code = 756) MEAN PLATELET VOLUME (BEAKER) 9.4 fL 9.4-12.4 (test code = 754) NUCLEATED RED BLOOD CELLS 0 /100 WBC 0-0 (BEAKER) (test code = 413) NEUTROPHILS RELATIVE PERCENT 79 % (BEAKER) (test code = 429) LYMPHOCYTES RELATIVE PERCENT 11 % (BEAKER) (test code = 430) MONOCYTES RELATIVE PERCENT 9 % (BEAKER) (test code = 431) EOSINOPHILS RELATIVE PERCENT 0 % (BEAKER) (test code = 432) BASOPHILS RELATIVE PERCENT 0 % (BEAKER) (test code = 437) NEUTROPHILS ABSOLUTE COUNT 10.94 K/ L 1.78-5.38 H (BEAKER) (test code = 670) LYMPHOCYTES ABSOLUTE COUNT 1.45 K/ L 1.32-3.57 (BEAKER) (test code = 414) MONOCYTES ABSOLUTE COUNT (BEAKER) 1.30 K/ L 0.30-0.82 H (test code = 415) EOSINOPHILS ABSOLUTE COUNT 0.02 K/ L 0.04-0.54 L (BEAKER) (test code = 416) BASOPHILS ABSOLUTE COUNT (BEAKER) 0.04 K/ L 0.01-0.08 (test code = 417) IMMATURE GRANULOCYTES-RELATIVE 1 % 0-1 PERCENT (BEAKER) (test code = 2801) BLOOD GAS, [id number] 03:27:00 Test Item Value Reference Range Interpretation Comments PH ARTERIAL (BEAKER) (test code = 7.45 7.35-7.45 383) PCO2 ARTERIAL (BEAKER) (test code 29 mm Hg 35-45 L = 384) PO2 ARTERIAL (BEAKER) (test code 90 mm Hg 80-90 = 385) O2 SATURATION ARTERIAL (BEAKER) 97.3 % 96.0-97.0 H (test code = 386) HCO3 ARTERIAL (BEAKER) (test code 20 mmol/L 21-29 L = 388) BASE EXCESS ARTERIAL (BEAKER) -3.2 mmol/L -2.0-3.0 L (test code = 387) PATIENT TEMPERATURE (BEAKER) 37.0 (test code = 1818) FIO2 (BEAKER) (test code = 1819) 50.0 U/S, RENAL, [id number] 03:12:00Reason for exam:->Medical renal diseaseCHI [facility]. [facility]ITALName: [facility] : 1970 Sex: MFINAL REPORT TECHNIQUE: Grayscale ultrasound of the kidneys and bl adder with Doppler and spectral analysis. INDICATION: Medical renal disease. COMPARISON: None. FINDINGS: RIGHT KIDNEY: The right kidney is 10.8 x 6.2 x 6.9 cm. Cortical thickness is 1.4 cm. No solid mass lesions. No hydronephrosis. Renal artery and vein are patent. LEFT KIDNEY: The left kidney is 11.4 x 6.8 x 6.0 cm. Cortical thickness is 1.4 cm. No solid mass lesions. No hydronephrosis. Renal artery and vein are patent. BLADDER: Unremarkable. IMPRESSION:Unremarkable ultrasound of the kidneys. Signed: Tiny Whiting MDReport Verified Date/Time: 02/15/2021 03:12:06 HIGH SENSITIVITY TROPONIN [id number] 01:28:00 Test Item Value Reference Range Interpretation Comments HIGH SENSITIVITY 115 pg/ml See_Comment H [Automated message] TROPONIN I (test code The sy stem which = [id number]) generated this result transmitted ref erence range: <=35. Th e reference range was not used to int erpret this result as normal/abnormal . Swim Coach ID - PIAYA LThe ASSET AVAILABILITY LEADER STAT High Sensitivity Troponin-I results should be used in conjunction with other diagnostic information such as ECG, clinical observations and information, and patient symptoms to aid in the diagnosis of MD.POCT-GLUCOSE [id number] 00:41:00 Test Item Value Reference Range Interpretation Comments POC-GLUCOSE METER 119 mg/dL 70-110 H : TESTED Braeden Benitez [facility] 6720 (AN) (test code = [place], 1538) [id number]: Swim Coach/Techni anne-marie ID = [id number] for Jimmy Chau RAD, CHEST, 1 VIEW, NON [id number] 22:12:00Reason for exam:- >hypoxiaShould this be performed at the bedside?->Yes [facility] 1970 Sex: MFINAL REPORT INDICATION: hypoxia COMPARISON: None TECHNIQUE: Single frontal view of the chest. IMPRESSION: Lungs and pleura: Lungs are hypoinflated with bronchovascular crowding and central venous congestion with haziness suggestive of interstitial edema. No focal airspace consolidation or sizable effusion.Heart and mediastinum: Cardiac silhouette is magnified by technique. Unremarkable mediastinal contours.Osseous structures: No acute abnormality.Other: A feeding tube and enteric tube descends below the gastroesophageal junction beyond the [id number] with the tips not well seen. Signed: Tiny Whiting [facility] Verified Date/Time: 02/14/2021 22:12:55 HIGH SENSITIVITY TROPONIN [id number] 21:00:00 Test Item Value Reference Range Interpretation Comments HIGH SENSITIVITY 81 pg/ml See_Comment H [Automated message] TROPONIN I (test code = The system which [id number]) generated this result transmitted ref erence range: <=35. Th e reference range was not used to int erpret this result as normal/abnormal . Swim Coach ID - DBThe ASSET AVAILABILITY LEADER STAT High Sensitivity Troponin-I results should be used in conjunctionwith other diagnostic information such as ECG, clinical observations and information, and patient symptoms to aid in the diagnosis of MD.[id number] 20:48:00 Test Item Value Reference Range Interpretation Comments SODIUM (BEAKER) (test code = 381) 133 meq/L 136-145 L Swim Coach ID - DBBLOOD GAS, [id number] 20:33:00 Test Item Value Reference Range Interpretation Comments PH ARTERIAL (BEAKER) (test code = 7.25 7.35-7.45 L 383) PCO2 ARTERIAL (BEAKER) (test code 44 mm Hg 35-45 = 384) PO2 ARTERIAL (BEAKER) (test code 127 mm Hg 80-90 H = 385) O2 SATURATION ARTERIAL (BEAKER) 98.0 % 96.0-97.0 H (test code = 386) HCO3 ARTERIAL (BEAKER) (test code 19 mmol/L 21-29 L = 388) BASE EXCESS ARTERIAL (BEAKER) -7.8 mmol/L -2.0-3.0 L (test code = 387) PATIENT TEMPERATURE (BEAKER) 37.0 (test code = 1818) FIO2 (BEAKER) (test code = 1819) 65.0 RAD, ABDOMEN/KUB, 1 VIEW [id number] 19:38:00Reason for exam:->Enteric tube placement verification [facility] 1970 Sex: MFINAL REPORT TECHNIQUE: Single View of the Abdomen. INDICATION: En teric tube placement verification. COMPARISON: None. FINDINGS/IMPRESSION: The tip of the feeding tube is over the first portion of the duodenum. There are streaky opacities in the bases which are likely due to atelectasis. However, further evaluation with a chest radiograph is recommended. There are prominent loops of small bowel and colon a nonspecific pattern. Consider a short-term follow-up radiograph to exclude a small bowel obstruction. Signed: Yulia Cornell MDReport Verified Date/Time: 02/14/2021 19:38:06 Reading Location: [address] Ortho Consult Reading Room POCT-GLUCOSE [id number] 17:18:00 Test Item Value Reference Range Interpretation Comments POC-GLUCOSE METER 114 mg/dL 70-110 H : TESTED A T [facility] 6720 (BEAKER) (test code = [facility], 153) [id number]: Swim Coach/Techni anne-marie ID = [id number] for SALLY BENSON [id number] 13:57:00 Test Item Value Reference Range Interpretation Comments SODIUM (BEAKER) (test code = 381) 137 meq/L 136-145 Swim Coach ID - DAPHNE CPOCT-GLUCOSE [id number] 12:07:00 Test Item Value Reference Range Interpretation Comments POC-GLUCOSE METER 116 mg/dL 70-110 H : TESTED A T [facility] 6720 (BEAKER) (test code = [facility] [employer] [facility], 153) [id number]: Swim Coach/Techni anne-marie ID = [id number] for Colleen Barker HEMOGLOBIN [id number] 08:38:00 Test Item Value Reference Range Interpretation Comments HEMOGLOBIN A1C (BEAKER) (test code = 5.8 % 4.3-6.1 368) POCT-GLUCOSE [id number] 06:06:00 Test Item Value Reference Range Interpretation Comments POC-GLUCOSE METER 127 mg/dL 70-110 H : TESTED A T [facility] 6720 (BEAKER) (test code = MARKO Moore [facility], 1538) [address]: Swim Coach/Techni anne-marie ID = [id number] for RADHA CHAU CT BRAIN WITHOUT IV CONTRAST - [id number] 04:56:00Unlisted Reason for Exam - Click Yes and Enter Reason Below->No [facility] 1970 Sex: MFINAL REPORT EXAM: CT BRAIN WITHOUT IV CONTRAST - PORTABLE INDICATION: Known intracranial hemorrhage TECHNIQUE: CT images from skull base to vertex without IV contrast. This exam was performed according to the departmental dose optimization program which includes automated exposure control, adjustment of the mA and/or kV according to the patient size, and/or use ofan iterative reconstruction technique. COMPARISON: None. FINDINGS: Parenchyma: Acute intraparenchymal hemorrhage centered at the right basal ganglia with measurements of 4.1 x 2.5 x 3.8 cm (19 cc). No intraventricular extension. There is shift of midline structures from right to left of approximately 0.4 cm. No downward herniation. No evidence of a separate acute infarction. Extra-axial Collection: None Ventricular System: No hydrocephalus Osseous Structures: No acute osseous abnormality. Included Orbits: Normal Paranasal Sinuses: Predominantly clear Tympanomastoid Cavities: Normal Other: None IMPRESSION:Acute intraparenchymal hemorrhage centered at the right basal ganglia with estimated volume of 19 cc and leftward midline shift of 0.4 cm. No intraventricular extension. Signed: Tiny Whitingort Verified Date/Time: 02/14/2021 04:56:26 [id number] 04:32:00 Test Item Value Reference Range Interpretation Comments MAGNESIUM (BEAKER) 2.0 mg/dL 1.6-2.6 Specimen moderately (test code = 627) hemolyzed Swim Coach ID - LIN [id number] 04:32:00 Test Item Value Reference Range Interpretation Comments PHOSPHORUS (BEAKER) 4.0 mg/dL 2.3-4.7 Specimen moderately (test code = 604) hemolyzed Swim Coach ID - LIN LBASIC METABOLIC [id number] 04:32:00 Test Item Value Reference Range Interpretation Comments SODIUM (BEAKER) 135 meq/L 136-145 L (test code = 381) POTASSIUM (BEAKER) 4.6 meq/L 3.5-5.1 Specimen moderately (test code = 379) hemolyzed CHLORIDE (BEAKER) 106 meq/L 98-107 (test code = 382) CO2 (BEAKER) (test 21 meq/L 22-29 L code = 355) BLOOD UREA NITROGEN 16 mg/dL 7-21 (BEAKER) (test code = 354) CREATININE (BEAKER) 1.18 mg/dL 0.57-1.25 Specimen moderately (test code = 358) hemolyzed GLUCOSE RANDOM 130 mg/dL 70-105 H (BEAKER) (test code = 652) CALCIUM (BEAKER) 8.7 mg/dL 8.4-10.2 (test code = 697) EGFR (BEAKER) (test 66 mL/min/1.73 ESTIMA HAYDER GFR IS code = 1092) sq m NOT ACCURATE CREATININE CLEARANCE IN PREDICTING GLOMERULAR FILTRATION RATE . ESTIMATED GFR I S NOT APPLICABLE FOR DIALYSIS PATIEN TS. Swim Coach ID - LIN LLIPID [id number] 04:32:00 Test Item Value Reference Range Interpretation Comments TRIGLYCERIDES (BEAKER) 81 mg/dL Speci men moderately (test code = 540) hemolyzed CHOLESTEROL (BEAKER) 150 mg/dL Specime n moderately (test code = 631) hemolyzed HDL CHOLESTEROL (BEAKER) 35 mg/dL (test code = 976) LDL CHOLESTEROL 99 mg/dL CALCULATED (BEAKER) (test code = 633) Triglyceride Reference Range: Low Risk <150 Borderline 150-199 High Risk 200-499 Very High Risk >=500Cholesterol Reference Range: Low Risk <200 Borderline 200-239 High Risk >240HDL Cholesterol Reference Range: Low Risk >=60 High Risk <40LDL Cholesterol Reference Range: Optimal <100 Near Optimal 100-129 Borderline 130-159 High 160-189 Very High >=190 Swim Coach ID - PIAYALCBC W/PLT COUNT & AUTO [id number] 04:03:00 Test Item Value Reference Range Interpretation Comments WHITE BLOOD CELL COUNT (BEAKER) 11.6 K/ L 3.5-10.5 H (test code = 775) RED BLOOD CELL COUNT (BEAKER) 4.58 M/ L 4.63-6.08 L (test code = 761) HEMOGLOBIN (BEAKER) (test code = 13.2 GM/DL 13.7-17.5 L 410) HEMATOCRIT (BEAKER) (test code = 39.5 % 40.1-51.0 L 411) MEAN CORPUSCULAR VOLUME (BEAKER) 86.2 fL 79.0-92.2 (test code = 753) MEAN CORPUSCULAR HEMOGLOBIN 28.8 pg 25.7-32.2 (BEAKER) (test code = 751) MEAN CORPUSCULAR HEMOGLOBIN CONC 33.4 GM/DL 32.3-36.5 (BEAKER) (test code = 752) RED CELL DISTRIBUTION WIDTH 13.2 % 11.6-14.4 (BEAKER) (test code = 412) PLATELET COUNT (BEAKER) (test 247 K/CU MM 150-450 code = 756) MEAN PLATELET VOLUME (BEAKER) 9.5 fL 9.4-12.4 (test code = 754) NUCLEATED RED BLOOD CELLS 0 /100 WBC 0-0 (BEAKER) (test code = 413) NEUTROPHILS RELATIVE PERCENT 74 % (BEAKER) (test code = 429) LYMPHOCYTES RELATIVE PERCENT 17 % (BEAKER) (test code = 430) MONOCYTES RELATIVE PERCENT 7 % (BEAKER) (test code = 431) EOSINOPHILS RELATIVE PERCENT 1 % (BEAKER) (test code = 432) BASOPHILS RELATIVE PERCENT 1 % (BEAKER) (test code = 437) NEUTROPHILS ABSOLUTE COUNT 8.57 K/ L 1.78-5.38 H (BEAKER) (test code = 670) LYMPHOCYTES ABSOLUTE COUNT 1.92 K/ L 1.32-3.57 (BEAKER) (test code = 414) MONOCYTES ABSOLUTE COUNT (BEAKER) 0.83 K/ L 0.30-0.82 H (test code = 415) EOSINOPHILS ABSOLUTE COUNT 0.15 K/ L 0.04-0.54 (BEAKER) (test code = 416) BASOPHILS ABSOLUTE COUNT (BEAKER) 0.09 K/ L 0.01-0.08 H (test code = 417) IMMATURE GRANULOCYTES-RELATIVE 1 % 0-1 PERCENT (BEAKER) (test code = 2801) POCT-GLUCOSE [id number] 00:16:00 Test Item Value Reference Range Interpretation Comments POC-GLUCOSE METER 115 mg/dL 70-110 H : TESTED A T [facility] 6720 (BEAKER) (test code = [facility], 1538) [address]: Swim Coach/Techni anne-marie ID = [id number] for RADHA CHAU POCT-GLUCOSE [id number] 18:39:00 Test Item Value Reference Range Interpretation Comments POC-GLUCOSE METER 112 mg/dL 70-110 H : TESTED A T [facility] 6720 (BEAKER) (test code = [facility], 1538) [address]: Swim Coach/Techni anne-marie ID = [id number] for Chandrkia Hayden BASIC METABOLIC [id number] 16:03:00 Test Item Value Reference Range Interpretation Comments SODIUM (BEAKER) 136 meq/L 136-145 (test code = 381) POTASSIUM (BEAKER) 3.5 meq/L 3.5-5.1 (test code = 379) CHLORIDE (BEAKER) 106 meq/L 98-107 (test code = 382) CO2 (BEAKER) (test 24 meq/L 22-29 code = 355) BLOOD UREA NITROGEN 15 mg/dL 7-21 (BEAKER) (test code = 354) CREATININE (BEAKER) 1.08 mg/dL 0.57-1.25 (test code = 358) GLUCOSE RANDOM 157 mg/dL 70-105 H (BEAKER) (test code = 652) CALCIUM (BEAKER) 9.6 mg/dL 8.4-10.2 (test code = 697) EGFR (BEAKER) (test 73 mL/min/1.73 ESTIMA HAYDER GFR IS code = 1092) sq m NOT ACCURATE CREATININE CLEARANCE IN PREDICTING GLOMERULAR FILTRATION RATE . ESTIMATED GFR I S NOT APPLICABLE FOR DIALYSIS PATIEN TS. Swim Coach ID - [id number] 16:03:00 Test Item Value Reference Range Interpretation Comments MAGNESIUM (BEAKER) (test code = 1.9 mg/dL 1.6-2.6 627) Swim Coach ID - [id number] 16:03:00 Test Item Value Reference Range Interpretation Comments PHOSPHORUS (BEAKER) (test code = 2.0 mg/dL 2.3-4.7 L 604) Swim Coach ID - DBHEPATIC FUNCTION [id number] 16:03:00 Test Item Value Reference Range Interpretation Comments TOTAL PROTEIN (BEAKER) (test code = 7.5 gm/dL 6.0-8.3 770) ALBUMIN (BEAKER) (test code = 1145) 4.1 g/dL 3.5-5.0 BILIRUBIN TOTAL (BEAKER) (test code 0.4 mg/dL 0.2-1.2 = 377) BILIRUBIN DIRECT (BEAKER) (test 0.2 mg/dL 0.1-0.5 code = 706) ALKALINE PHOSPHATASE (BEAKER) (test 99 U/L 40-150 code = 346) AST (SGOT) (BEAKER) (test code = 26 U/L 5-34 353) ALT (SGPT) (BEAKER) (test code = 39 U/L 6-55 347) Swim Coach ID - DBCBC W/PLT COUNT & AUTO [id number] 15:56:00 Test Item Value Reference Range Interpretation Comments WHITE BLOOD CELL COUNT (BEAKER) 11.4 K/ L 3.5-10.5 H (test code = 775) RED BLOOD CELL COUNT (BEAKER) 4.91 M/ L 4.63-6.08 (test code = 761) HEMOGLOBIN (BEAKER) (test code = 14.1 GM/DL 13.7-17.5 410) HEMATOCRIT (BEAKER) (test code = 41.9 % 40.1-51.0 411) MEAN CORPUSCULAR VOLUME (BEAKER) 85.3 fL 79.0-92.2 (test code = 753) MEAN CORPUSCULAR HEMOGLOBIN 28.7 pg 25.7-32.2 (BEAKER) (test code = 751) MEAN CORPUSCULAR HEMOGLOBIN CONC 33.7 GM/DL 32.3-36.5 (BEAKER) (test code = 752) RED CELL DISTRIBUTION WIDTH 13.0 % 11.6-14.4 (BEAKER) (test code = 412) PLATELET COUNT (BEAKER) (test 223 K/CU MM 150-450 code = 756) MEAN PLATELET VOLUME (BEAKER) 9.5 fL 9.4-12.4 (test code = 754) NUCLEATED RED BLOOD CELLS 0 /100 WBC 0-0 (BEAKER) (test code = 413) NEUTROPHILS RELATIVE PERCENT 81 % (BEAKER) (test code = 429) LYMPHOCYTES RELATIVE PERCENT 10 % (BEAKER) (test code = 430) MONOCYTES RELATIVE PERCENT 7 % (BEAKER) (test code = 431) EOSINOPHILS RELATIVE PERCENT 1 % (BEAKER) (test code = 432) BASOPHILS RELATIVE PERCENT 1 % (BEAKER) (test code = 437) NEUTROPHILS ABSOLUTE COUNT 9.30 K/ L 1.78-5.38 H (BEAKER) (test code = 670) LYMPHOCYTES ABSOLUTE COUNT 1.11 K/ L 1.32-3.57 L (BEAKER) (test code = 414) MONOCYTES ABSOLUTE COUNT (BEAKER) 0.78 K/ L 0.30-0.82 (test code = 415) EOSINOPHILS ABSOLUTE COUNT 0.09 K/ L 0.04-0.54 (BEAKER) (test code = 416) BASOPHILS ABSOLUTE COUNT (BEAKER) 0.08 K/ L 0.01-0.08 (test code = 417) IMMATURE GRANULOCYTES-RELATIVE 1 % 0-1 PERCENT (BEAKER) (test code = 2801) [id number] 15:55:00 Test Item Value Reference Range Interpretation Comments PARTIAL THROMBOPLASTIN TIME 29.1 seconds 22.5-36.0 (BEAKER) (test code = 760) PROTHROMBIN TIME/[id number] 15:54:00 Test Item Value Reference Range Interpretation Comments PROTIME (BEAKER) 13.1 seconds 11.9-14.2 (test code = 759) INR (BEAKER) (test 1.01 See_Comment [Automat ed message] code = 370) The system [employer] generated this result transmitted ref erence range: <=5.90. The reference range was not used to int erpret this result as normal/abnormal . RECOMMENDED COUMADIN/WARFARIN INR THERAPY RANGESSTANDARD DOSE: 2.0 - 3.0 Includes: PROPHYLAXIS forvenous thrombosis, systemic embolization; TREATMENT for venous thrombosis and/or pulmonary embolus.HIGH RISK: Target INR is 2.5-3.5 for patients with mechanical heart valves.
[2021-08-04] MEDS ORDERED: NA CHLORIDE 0.9% 1,000 ML ONE ×2 (22:57→23:25)
[2021-08-04] MEDS ORDERED: ONDANSETRON 4 MG/2 ML VIAL ONE (23:24)
[2021-08-04 23:34] LABS: Absolute Lymphocytes (CBC) 1.6 K/uL (0.7-4.9); Basophils % 0.5 % (0-1.3); Hematocrit 40.6 % (39.6-49.0); Lymphocytes % 10.7 % (15.3-44.8); MPV 7.7 fL (7.6-11.3); RBC Red Blood Cell Count 4.85 M/uL (4.33-5.43)
[2021-08-05 00:01] LABS: Albumin 3.8 g/dL (3.4-5.0); Bilirubin Direct 0.3 mg/dL (0-0.2); Bilirubin Total 0.7 mg/dL (0.2-1.0); Protein, Total 8.7 g/dL (6.4-8.2)
[2021-08-05 00:17] LABS: SARS-COV-2 RT PCR NEGATIVE (NEGATIVE)
[2021-08-05 00:50] LABS: Blood Morphology Comment NOT SEEN (NOT SEEN); Platelet Estimate ADEQ; White Blood Cell Scan OK (OK)
--- NOTE | 2021-08-05 03:37 | ER ---
Nurse's Notes [facility] Name: Jeferson Garcia Age: 50 yrs Sex: Male : 1970 Arrival Date: 08/04/2021 Time: 22:45 Bed 26 Private MD: Diagnosis: Vomiting;Abnormal results of liver function studies;Other cholelithiasis without obstruction Presentation: 08/04 22:45 Chief complaint: EMS states: toned out for nausea and vomiting since 1800. Pt went to [address] ER last week for back pain and received muscle relaxers - he thinks this is making him sick. Pt also reported constipation X 10 days. Coronavirus screen: At this time, the client does not indicate any symptoms associated with coronavirus-19. Ebola Screen: No symptoms or risks identified at this time. Initial Sepsis Screen: Does the patient meet any 2 criteria? No. Patient's initial sepsis screen is negative. Does the patient have a suspected source of infection? No. Patient's initial sepsis screen is negative. Risk Assessment: Do you want to hurt yourself or someone else? Patient reports no desire to harm self or others. Onset of symptoms was August 04, 2021. 22:45 Method Of Arrival: EMS: [facility] ld1 22:45 Acuity: FREDA 3 ld1 Triage Assessment: 22:50 General: Appears in no apparent distress. comfortable, Behavior is calm, cooperative, ld1 appropriate for age. Pain: Denies pain. Respiratory: Airway is patent Respiratory effort is even, unlabored. GI: Abdomen is flat, non-distended, Reports nausea, vomiting. Historical: - Home Meds: 22:50 hydrochlorothiazide 12.5 mg Oral cap 1 cap once daily [Active]; ld1 - PMHx: 22:50 Hypertensive disorder; ld1 - PSHx: 22:50 None; ld1 - Immunization history:: Adult Immunizations up to date, Client reports receiving the 2nd dose of the Covid vaccine. - Social history:: Smoking status: Patient denies any tobacco usage or history of. Patient/guardian denies using alcohol. - Family history:: not pertinent. - Hospitalizations: : No recent hospitalization is reported. Screenin/23 02:05 Abuse screen: none. Nutritional screening: No deficits noted. Tuberculosis screening: sv1 No symptoms or risk factors identified. Fall Risk Ambulatory Aid-. Assessment: 04:13 GI: Abdomen is distended. sv1 04:14 Reassessment: All labs and imaging completed. The patient has had 2 soft bowel sv1 movements. He is to be transferred to [facility] in [place]. Report called to Marta LOUIS. Report is accepted.. Vital Signs: 08/04 22:45 BP 146 / 86; Pulse 96; Resp 18; Temp 98.3(O); Pulse Ox 97% on R/A; Weight 97.52 kg; ld1 Height 5 ft. 8 in. (172.72 cm); Pain 0/10; 12 02:04 BP 137 / 86; Pulse 92; Resp 18; Pulse Ox 99% 0 lpm ; Pain 0/10; sv1 03:10 BP 131 / 84; Pulse 96; Resp 18; Pulse Ox 99% 0 lpm ; Pain 0/10; sv1 04:16 BP 131 / 81; Pulse 92; Resp 20; Pulse Ox 99% 0 lpm ; Pain 0/10; sv1 08/04 22:45 Body Mass Index 32.69 (97.52 kg, 172.72 cm) ld1 ED Course: 08/04 22:45 Patient arrived in ED. ld1 22:48 Enzo Sharp MD is Attending Physician. rn 22:49 Triage completed. ld1 22:51 Arm band placed on right wrist. ld1 22:55 Justyn Alfredo, HERIBERTO is Primary Nurse. sv1 23:22 Basic Metabolic Panel Sent. sv1 23:22 CBC with Diff Sent. sv1 23:22 Hepatic Function Sent. sv1 23:22 Lipase Sent. sv1 23:29 COVID-19/FLU A+B (Document "Date of Onset" if Symptomatic) Sent. sv1 12 01:02 Abdomen In Process Unspecified. EDMS 01:35 US Abdomen Limited In Process Unspecified. EDMS 02:05 Patient has correct armband on for positive identification. Placed in gown. Bed in low sv1 position. Call light in reach. Side rails up X2. 02:05 No provider procedures requiring assistance completed. sv1 02:43 initiated a transfer with Marlen Montalvo from [facility]. mw2 03:[address] Sharp with the GI specialist from [facility]. mw2 03:[address] Sharp [address] Dr. Villalobos the Hospitalist from [facility]. mw2 03:49 administrative approval given by Marlen Montalvo/ patient has been accepted to [facility] bed mw2 1514/ Dr. Villalobos accepted the patient in transfer/report to be called to [phone]. 04:22 Patient did not have IV access during this emergency room visit. sv1 Administered Medications: 08/04 23:00 Drug: Zofran (Ondansetron) 4 mg Route: IVP; Site: right hand; sv1 08/05 01:08 Follow up: Response: Nausea is decreased sv1 08/04 23:22 Drug: NS 0.9% 1000 ml Route: IV; Rate: 1000 ml; Site: right hand; sv1 08/05 01:08 Follow up: IV Status: Completed infusion sv1 Outcome: 03:36 ER care complete, transfer ordered by . rn 04:21 Transferred by ground EMS to [facility], Transfer form completed. sv1 04:21 Condition: stable 04:21 Instructed on the need for transfer. 04:40 Patient left the ED. sv1 Signatures: Dispatcher [employer] EDMS Enzo Sharp MD MD rn [place], MyKena mw2 Cata Kemp, HERIBERTO RN ld1 Justyn Alfredo RN RN sv1
--- NOTE | 2021-08-05 03:37 | EDPHYS ---
Physician Documentation [facility] Name: Jefesron Garcia Age: 50 yrs Sex: Male : 1970 Arrival Date: 08/04/2021 Time: 22:45 Bed 26 Private MD: ED Physician Enzo Sharp HPI: 08/04 22:56 This 50 yrs old Unknown Male presents to ER via EMS with complaints of Nausea/Vomiting. rn 22:56 The patient presents to the emergency department with nausea, vomiting. Onset: The rn symptoms/episode began/occurred 2 hour(s) ago. Possible causes: unknown. The symptoms are aggravated by nothing. The symptoms are alleviated by nothing. Associated signs and symptoms: Pertinent positives: nausea, vomiting, Pertinent negatives: fever, GI bleeding. Severity of symptoms: At their worst the symptoms were moderate in the emergency department the symptoms are unchanged. The patient has not experienced similar symptoms in the past. The patient has not recently seen a physician. Patient reports nausea and vomiting for 2 hours. Has thrown up 5 times. No blood. Reports chronic constipation and was made worse by starting pain medication recently. Patient usually has to take laxatives to go to the bathroom and has not tried them recently. States felt fine earlier today. No known sick contacts. No fever. No focal abdominal pain.. Historical: - Home Meds: 22:50 hydrochlorothiazide 12.5 mg Oral cap 1 cap once daily [Active]; ld1 - PMHx: 22:50 Hypertensive disorder; ld1 - PSHx: 22:50 None; ld1 - Immunization history:: Adult Immunizations up to date, Client reports receiving the 2nd dose of the Covid vaccine. - Social history:: Smoking status: Patient denies any tobacco usage or history of. Patient/guardian denies using alcohol. - Family history:: not pertinent. - Hospitalizations: : No recent hospitalization is reported. ROS: 22:56 Constitutional: Negative for fever, chills, and weight loss, Eyes: Negative for injury, rn pain, redness, and discharge, Neck: Negative for injury, pain, and swelling, Cardiovascular: Negative for chest pain, palpitations, and edema, Respiratory: Negative for shortness of breath, cough, wheezing, and pleuritic chest pain, Abdomen/GI: Positive for nausea and vomiting, positive for constipation Back: Negative for injury and pain, : Negative for injury, bleeding, discharge, and swelling, MS/Extremity: Negative for injury and deformity, Skin: Negative for injury, rash, and discoloration, Neuro: Negative for headache, weakness, numbness, tingling, and seizure. Exam: 22:56 Constitutional: This is a well developed, well nourished patient who is awake, alert, rn and in no acute distress. Head/Face: Normocephalic, atraumatic. Eyes: Periorbital areas with no swelling, redness, or edema. ENT: Dry mucous membranes Cardiovascular: Regular rate and rhythm. No pulse deficits. Respiratory: No increased work of breathing, no retractions or nasal flaring. Abdomen/GI: Soft, nontender, no distention or masses Skin: Warm, dry MS/ Extremity: Pulses equal, no cyanosis Neuro: Awake and alert, GCS 15 Vital Signs: 22:45 BP 146 / 86; Pulse 96; Resp 18; Temp 98.3(O); Pulse Ox 97% on R/A; Weight 97.52 kg; ld1 Height 5 ft. 8 in. (172.72 cm); Pain 0/10; 08/05 02:04 BP 137 / 86; Pulse 92; Resp 18; Pulse Ox 99% 0 lpm ; Pain 0/10; sv1 03:10 BP 131 / 84; Pulse 96; Resp 18; Pulse Ox 99% 0 lpm ; Pain 0/10; sv1 04:16 BP 131 / 81; Pulse 92; Resp 20; Pulse Ox 99% 0 lpm ; Pain 0/10; sv1 08/04 22:45 Body Mass Index 32.69 (97.52 kg, 172.72 cm) ld1 MDM: 08/04 22:48 Patient medically screened. rn 08/05 02:39 Differential diagnosis: gastritis, cholecystitis, pancreatitis, viral gastroenteritis, rn gastroenteritis. Data reviewed: vital signs, nurses notes, lab test result(s), radiologic studies, CT scan, ultrasound, and as a result, I will admit patient. Counseling: I had a detailed discussion with the patient and/or guardian regarding: the historical points, exam findings, and any diagnostic results supporting the discharge/admit diagnosis, lab results, radiology results, the need for further work-up and treatment in the hospital. Response to treatment: the patient's symptoms have mildly improved after treatment, and as a result, I will admit patient. ED course: Patient feels better, denies any abdominal pain. CT just shows constipation. Patient only has 1 previous visit here and had normal liver function tests at that time, today are abnormal with elevated AST and ALT as well as alk phos. Ultrasound shows gallbladder swelling but no thickening of the wall or pericholecystic fluid. CBD normal. No GI here, will try to transfer to [facility] for further evaluation.. 08/04 22:49 Order name: Basic Metabolic Panel; Complete Time: 00:59 rn 08/04 22:49 Order name: CBC with Diff; Complete Time: 00:59 rn 08/04 22:49 Order name: Hepatic Function; Complete Time: 00:59 rn 08/04 22:49 Order name: Lipase; Complete Time: 00:59 rn 08/04 22:49 Order name: COVID-19/FLU A+B (Document "Date of Onset" if Symptomatic); Complete Time: rn 00:59 08/04 23:43 Order name: CBC Smear Scan; Complete Time: 00:59 EDMS 08/04 22:49 Order name: IV Saline Lock; Complete Time: 23: rn 08/04 22:49 Order name: Labs collected and sent; Complete Time: : rn 08/05 01:00 Order name: US Abdomen Limited rn 08/05 01:02 Order name: Abdomen EDMS Administered Medications: 08/04 23:00 Drug: Zofran (Ondansetron) 4 mg Route: IVP; Site: right hand; sv1 08/05 01:08 Follow up: Response: Nausea is decreased sv1 08/04 23:22 Drug: NS 0.9% 1000 ml Route: IV; Rate: 1000 ml; Site: right hand; sv1 08/05 01:08 Follow up: IV Status: Completed infusion sv1 Disposition Summary: 08/05/21 03:36 Transfer Ordered Transfer Location: [facility] rn Reason: Higher level of care rn Condition: Stable rn Problem: new rn Symptoms: have improved rn Accepting Physician: (08/05/21 04:40) sv1 Diagnosis - Vomiting rn - Abnormal results of liver function studies rn - Other cholelithiasis without obstruction rn Forms: - Medication Reconciliation Form rn - SBAR form rn Signatures: Dispatcher [employer] EDEnzo Almonte MD MD rn Dibbern, Lauren RN RN ld1 Justyn Alfredo RN RN sv1 Corrections: (The following items were deleted from the chart) 01:02 08/04 23:26 Abdomen Pelvis W Con+CT.RAD.BRZ ordered. [facility] 08/05 04:40 03:36 Dr. colon sv1
[2021-08-05 04:44] VITALS: TEMP 98.3
[2021-08-05 04:45] VITALS: O2SAT 99
[2021-08-05 04:49] VITALS: BP 131/81
--- NOTE | 2021-08-05 07:25 | RAD REPORT ---
EXAM DESCRIPTION: US - Abdomen Exam Limited - 08/05/2021 1:35 am CLINICAL HISTORY: vomiting, abnormal LFTs COMPARISON: Abdomen Pelvis Wo Contrast dated 08/05/2021 t FINDINGS: Cholelithiasis noted. Sludge is also present. No gallbladder wall thickening. The gallblad tiffany wall measures 2 millimeters. No pericholecystic fluid. The common bile duct is non dilated measur ing 5 millimeters . Negative sonographic Shaver's sign. Spleen is normal in size. IMPRESSION: Cholelithiasis but no sonographic evidence of acute cholecystitis.
--- NOTE | 2021-08-05 11:27 | RAD REPORT ---
EXAM DESCRIPTION: CT - Abdomen Pelvis Wo Contrast - 08/05/2021 5:32 am CLINICAL HISTORY: 50 years, Male, nausea/vomiting/constipation COMPARISON: None. TECHNIQUE: Multiple transaxial tomograms of the abdomen and pelvis were performed from the lung base s to the symphysis pubis 3 mm slice thickness at 3 mm interval reconstruction, without administration of IV and oral contrast. Multiplanar reformats in the sagittal and coronal plane were generated and reviewed. This exam was performed according to our departmental dose-optimization protocol, which includes auto mated exposure control, adjustment of the mA and/or kV according to patient size and/or use of iterat gatito reconstruction technique. FINDINGS: The lack of IV and oral contrast limits evaluation of solid organs, subtle lesions cannot be excluded. The lung bases elevation of the right hemidiaphragm with compressive atelectatic changes. Grossly the unopacified liver, pancreas, spleen and adrenal glands demonstrate to be within normal li mits, no significant focal lesions were identified. There is mild distention of the gallbladder. Th ere is no biliary duct dilatation. The kidneys demonstrate grossly unremarkable. There is no evidence for nephrolithiasis and/or hydro nephrosis. No focal masses were demonstrated. The ureters displays normal appearance with normal caliber, no hydroureter was seen. Grossly the unopacified stomach, small bowel and large bowel demonstrate to be within normal limits. There is no evidence for bowel dilatation/or free air. The appendix is normal. Fecal residue througho ut the large bowel with the significant amount along the rectum corresponding to constipation/impacti on. The urinary bladder demonstrate to be within normal limits. The prostate gland is unremarkable. The a zuhair demonstrate minimal atheromatous plaque dimension at the aortic bifurcation. There is no retro peritoneal lymphadenopathy. There is no evidence for ascites. The rest of the soft tissue demonstra te to be grossly unremarkable. IMPRESSION: Fecal residue throughout the large bowel with the significant amount along the rectum co rresponding to constipation/impaction. No evidence for nephrolithiasis and/or hydronephrosis. Electronically signed by: Alexander Torres MD 08/05/2021 1:22 AM [employer]OR Due to temporary technical issues with the PACS/Fluency reporting system, reports are being signed by the in house radiologist without review as a courtesy to ensure prompt reporting. The interpreting r adiologist is fully responsible for the content of the report.
== END 2021-08-05 04:40 | disposition short-term general hospital (02) ==
LOC: ER 22:39
DX: K80.80 Other cholelithiasis without obstruction (principal); R94.5 Abnormal results of liver function studies; Z20.822 Contact with and (suspected) exposure to COVID-19; I10 Essential (primary) hypertension
CPT/HCPCS: 96361; 85025; 80048; 36415; 80076; 83690; 0240U; 74176; 76705; 96374; 99285; J7030 ×2; J2405

== ENCOUNTER 2022-04-03 12:11 | Emergency (ER) | payer OTHER ==
[2022-04-03 13:12] LABS: Bilirubin Total 0.4 mg/dL (0.2-1.0); Potassium 3.7 mmol/L (3.5-5.1); Protein, Total 7.8 g/dL (6.4-8.2)
--- NOTE | 2022-04-03 13:15 | RAD REPORT ---
EXAM DESCRIPTION: CT - Stone Protocol - 04/03/2022 12:59 pm CLINICAL HISTORY: low back pain COMPARISON: Abdomen Pelvis Wo Contrast dated 08/05/2021 TECHNIQUE: Axial 3 mm thick images were obtained without oral or IV contrast. The [id number] span s the entirety of the system including uppermost abdomen and lung bases. All CT scans are performed using dose optimization technique as appropriate and may include automated exposure control or mA/KV adjustment according to patient size. FINDINGS: No hydronephrosis is present and no obstructing ureteral calculi. Small renal cortical cys ts are unchanged from July 2021. No suspicious renal masses. Isodense masses and pyelonephritis a re not excluded on a stone protocol CT scan. No significant adrenal finding. No urinary bladder suspi cious finding. Imaged portions of the liver, spleen and pancreas show no suspicious findings on non-contrast imaging . No gallbladder or biliary tree abnormality identified. Stomach and small bowel show no suspicious findings. The appendix is normal. Sigmoid colon is redunda nt extending to the upper right abdomen. Patient has mild sigmoid diverticulosis but no acute diverti culitis findings. No mass or bulky lymphadenopathy. Small bilateral fat filled inguinal hernias are present. No free ai r, free fluid or inflammatory stranding. No compression fracture or acute vertebral body finding. Central canal detail is inherently limited b ut there is bulging disc material in the midline and left exit foramen at L5-S1 similar to prior imag ing. Posterior endplate spurring and disc bulge changes at L4-5 cause central spinal stenosis to 8 mm . This is also similar to comparison. IMPRESSION: No acute or GI abnormality identified. The patient has L4-5 central spinal stenosis and L5-S1 protruding disc material, both potential sourc es for left lower extremity radiculopathy. These findings are not clearly different from July. CT imaging of the central canal is inherently limited. Isodense masses and pyelonephritis are not excluded on stone protocol technique.
[2022-04-03] MEDS ORDERED: MORPHINE 4 MG/ML SYR ONE (13:23)
[2022-04-03] MEDS ORDERED: ONDANSETRON 4 MG/2 ML VIAL ONE (13:23)
[2022-04-03 13:39] LABS: Absolute Lymphocytes (CBC) 2.1 K/uL (0.7-4.9); Hematocrit 37.3 % (39.6-49.0); Lymphocytes % 35.3 % (15.3-44.8); MCV 84.4 fL (80-100); MPV 7.1 fL (7.6-11.3); RBC Red Blood Cell Count 4.42 M/uL (4.33-5.43)
[2022-04-03 14:29] LABS: Urine Blood Negative (Negative); Urine Glucose Negative (Negative); Urine Protein 1+ (Negative); Urine Specific Gravity >=1.030 (1.005-1.030); Urine pH 5.5 (5.0-7.0)
[2022-04-03] MEDS ORDERED: dexAMETHasone 10 MG/ML VIAL ONE (14:33)
[2022-04-03] MEDS ORDERED: LIDOCAINE 4% PATCH ONE (14:33)
[2022-04-03 14:59] LABS: Urine Bacteria Loaded /HPF (<20); Urine RBC <5 /HPF (None Seen)
--- NOTE | 2022-04-03 15:00 | ER ---
Nurse's Notes [facility] Name: Jeferson Garcia Age: 51 yrs Sex: Male : 1970 Arrival Date: 04/03/2022 Time: 12:12 Bed 17 Private MD: Kris Genao Diagnosis: Intervertebral disc disorders with radiculopathy, lumbar region;Constipation;UTI/ Urinary tract infection, site not specified Presentation: 04/03 12:19 Chief complaint: Patient states: left low back pain radiating down left leg that began aa5 1 week ago. Pt also c/o constipation, last BM was Monday. Coronavirus screen: At this time, the client does not indicate any symptoms associated with coronavirus-19. Ebola Screen: No symptoms or risks identified at this time. Initial Sepsis Screen: Does the patient meet any 2 criteria? No. Patient's initial sepsis screen is negative. Does the patient have a suspected source of infection? No. Patient's initial sepsis screen is negative. Risk Assessment: Do you want to hurt yourself or someone else? Patient reports no desire to harm self or others. Onset of symptoms was March 2022. 12:19 Method Of Arrival: Wheelchair aa5 12:19 Acuity: FREDA 3 aa5 Historical: - Allergies: 12:18 No Known Allergies; aa5 - PMHx: 12:18 Hypertensive disorder; CVA with Left sided weakness; aa5 - Immunization history:: Adult Immunizations unknown. - Social history:: Smoking status: Patient denies any tobacco usage or history of. Screenin:24 Abuse screen: Denies threats or abuse. Denies injuries from another. Nutritional jl7 screening: No deficits noted. Tuberculosis screening: No symptoms or risk factors identified. Fall Risk No fall in past 12 months (0 pts). No secondary diagnosis (0 pts). IV access (20 points). Ambulatory Aid- Crutches/Cane/Walker (15 pts). Gait- Normal/Bed Rest/Wheelchair (0 pts) Mental Status- Oriented to own ability (0 pts). Total Jones Fall Scale indicates Low Risk Score (25-44 pts). Fall prevention measures have been instituted. Side Rails Up X 2 Placed close to Nursing Station Frequent Obs/Assesments occuring As available Patient and Family Educated on Fall Prevention Program and strategies. Assessment: 13:24 General: Appears in no apparent distress. uncomfortable, Behavior is calm, cooperative, jl7 appropriate for age. Pain: Complains of pain in left low back Pain radiates to left leg Pain currently is 7 out of 10 on a pain scale. at worst was 10 out of 10 on a pain scale. Quality of pain is described as sharp, Pain began 2-3 days ago. Is continuous. Neuro: Level of Consciousness is awake, alert, obeys commands, Oriented to person, place, time, situation. Cardiovascular: Patient's skin is warm and dry. Respiratory: Airway is patent Respiratory effort is even, unlabored, Respiratory pattern is regular, symmetrical. GI: Abdomen is non-distended, Last BM was March 29, 2022. Derm: Skin is pink, warm \T\ dry. Musculoskeletal: left sided deficits from previous CVA,pt uses wheelchair and cane to ambulate, brace noted to left leg. 14:30 Reassessment: Patient appears in no apparent distress at this time. Patient and/or jl7 family updated on plan of care and expected duration. Pain level reassessed. Patient is alert, oriented x 3, equal unlabored respirations, skin warm/dry/pink. Patient states feeling better. Patient states symptoms have improved. 15:30 Reassessment: Patient appears in no apparent distress at this time. No changes from jl7 previously documented assessment. Patient and/or family updated on plan of care and expected duration. Pain level reassessed. Patient is alert, oriented x 3, equal unlabored respirations, skin warm/dry/pink. Vital Signs: 12:19 BP 154 / 97; Pulse 80; Resp 16 S; Temp 98.4(O); Pulse Ox 97% on R/A; Weight 97.52 kg aa5 (R); Height 5 ft. 10 in. (177.80 cm) (R); 13:24 BP 137 / 85; Pulse 74; Resp 15; Pulse Ox 99% ; jl7 14:15 BP 129 / 85; Pulse 70; Resp 15; Pulse Ox 99% ; jl7 15:00 BP 144 / 96; Pulse 72; Resp 15; Pulse Ox 99% ; jl7 15:55 BP 134 / 80; Pulse 68; Resp 15; Pulse Ox 98% ; jl7 12:19 Body Mass Index 30.85 (97.52 kg, 177.80 cm) aa5 ED Course: 12:12 Patient arrived in ED. am2 12:13 Kris Genao DO is Private Physician. am2 12:18 Arm band placed on. aa5 12:20 Triage completed. aa5 12:27 Remberto Garay PA is PHCP. cp 12:27 Geni Melendez MD is Attending Physician. cp 12:45 Initial lab(s) drawn, by me, sent to lab. Inserted saline lock: 20 gauge in right kj1 antecubital area, using aseptic technique. Blood collected. 13:01 CT Stone Protocol In Process Unspecified. EDMS 13:12 Jamilah Carr, HERIBERTO is Primary Nurse. jl7 13:24 Patient has correct armband on for positive identification. Call light in reach. Pt jl7 remains in wheelchair per pt request. Pulse ox on. NIBP on. 14:59 Keith Corral DO is Referral Physician. cp 15:58 No provider procedures requiring assistance completed. IV discontinued, intact, jl7 bleeding controlled, No redness/swelling at site. Pressure dressing applied. Administered Medications: 13:24 Drug: Zofran (Ondansetron) 4 mg Route: IVP; Site: right antecubital; jl7 14:31 Follow up: Response: No adverse reaction jl7 13:24 Drug: morphine 4 mg Route: IVP; Infused Over: 4 mins; Site: right antecubital; jl7 13:50 Follow up: Response: No adverse reaction; Pain is decreased jl7 14:31 Drug: Lidoderm Patch 5 % (700 mg/patch) 1 patches Route: Topical; Site: affected area; jl7 15:55 Follow up: Response: No adverse reaction jl7 14:31 Drug: Dexamethasone 10 mg Route: IVP; Site: right antecubital; jl7 15:55 Follow up: Response: No adverse reaction jl7 15:08 Drug: Rocephin (cefTRIAXone) 1 grams Route: IV; Rate: calculated rate; Site: right jl7 antecubital; 15:15 Follow up: Response: No adverse reaction; IV Status: Completed infusion jl7 Medication: 13:24 VIS not applicable for this client. jl7 Outcome: 15:00 Discharge ordered by . cp 15:58 Discharged to home ambulatory. jl7 15:58 Condition: stable 15:58 Discharge instructions given to patient, Instructed on discharge instructions, follow up and referral plans. medication usage, Demonstrated understanding of instructions, follow-up care, medications, Prescriptions given X 4. 15:58 Patient left the ED. jl7 Signatures: Dispatcher [employer] EDMS Oneyda Lee, RN RN aa5 Remberto Garay PA PA cp Leal, Jahala, RN RN jl7 Dorinda Stuart am2 Kika Middleton 1
--- NOTE | 2022-04-03 15:00 | EDPHYS ---
Physician Documentation [facility] Name: Jeferson Garcia Age: 51 yrs Sex: Male : 1970 Arrival Date: 04/03/2022 Time: 12:12 Bed 17 Private MD: [facility] ED Physician Geni Melendez HPI: 04/03 12:40 This 51 yrs old Male presents to ER via Wheelchair with complaints of Back Pain, cp Constipation. 12:40 The patient presents with pain that is acute, with no known mechanism of injury. The cp symptoms are located in the left low back pain. 12:40 Onset: The symptoms/episode began/occurred 1 week(s) ago. cp 12:40 The pain radiates to the left leg. Associated signs and symptoms: Pertinent positives: cp constipation, weakness, Pertinent negatives: abdominal pain, chest pain, fever, incontinence, numbness, urinary retention, vomiting. Patient reports in the past he has received injections in lower back by DR Caal that helped pain. Patient with history of CVA that caused left side weakness of arm and leg. Historical: - Allergies: 12:18 No Known Allergies; aa5 - PMHx: 12:18 Hypertensive disorder; CVA with Left sided weakness; aa5 - Immunization history:: Adult Immunizations unknown. - Social history:: Smoking status: Patient denies any tobacco usage or history of. ROS: 12:45 Constitutional: Negative for body aches, chills, fever, poor PO intake. cp 12:45 Cardiovascular: Negative for chest pain, edema, palpitations. 12:45 Respiratory: Negative for cough, shortness of breath, wheezing. 12:45 Abdomen/GI: Positive for constipation, Negative for abdominal pain, nausea, vomiting, and diarrhea, bowel incontinence. 12:45 Back: Positive for pain at rest, pain with movement. 12:45 : Negative for urinary symptoms, burning with urination, bladder incontinence, testicular pain 12:45 MS/extremity: Positive for pain, of the left leg, Negative for paresthesias. 12:45 Neuro: Positive for weakness, of the left leg, Negative for altered mental status, headache, numbness, tingling. 12:45 All other systems are negative. Exam: 12:50 Constitutional: The patient appears in no acute distress, alert, awake, cp non-diaphoretic, non-toxic, well developed, well nourished, uncomfortable. 12:50 Head/Face: Normocephalic, atraumatic. cp 12:50 Eyes: Periorbital structures: appear normal, Conjunctiva: normal, no exudate, no injection, Sclera: no appreciated abnormality, Lids and lashes: appear normal, bilaterally. 12:50 ENT: External ear(s): are unremarkable, Nose: is normal, Mouth: Lips: moist, Oral mucosa: moist, Posterior pharynx: Airway: no evidence of obstruction, patent. 12:50 Neck: ROM/movement: is normal, is supple, without pain, no range of motions limitations. 12:50 Chest/axilla: Inspection: normal. 12:50 Cardiovascular: Rate: normal. 12:50 Respiratory: the patient does not display signs of respiratory distress, Respirations: normal, no use of accessory muscles, no retractions, labored breathing, is not present. 12:50 Abdomen/GI: Inspection: abdomen appears normal, Bowel sounds: active, all quadrants, Palpation: abdomen is soft and non-tender, in all quadrants. 12:50 Back: pain, that is moderate, of the left low back and left mid back, ROM is painful, with all movement. 12:50 Neuro: Orientation: to person, place \T\ time. Mentation: is normal, Motor: moves all cp fours, left arm and left leg weakness from previous CVA, Sensation: no acute changes. Vital Signs: 12:19 BP 154 / 97; Pulse 80; Resp 16 S; Temp 98.4(O); Pulse Ox 97% on R/A; Weight 97.52 kg aa5 (R); Height 5 ft. 10 in. (177.80 cm) (R); 13:24 BP 137 / 85; Pulse 74; Resp 15; Pulse Ox 99% ; jl7 14:15 BP 129 / 85; Pulse 70; Resp 15; Pulse Ox 99% ; jl7 15:00 BP 144 / 96; Pulse 72; Resp 15; Pulse Ox 99% ; jl7 15:55 BP 134 / 80; Pulse 68; Resp 15; Pulse Ox 98% ; jl7 12:19 Body Mass Index 30.85 (97.52 kg, 177.80 cm) aa5 MDM: 13:00 Differential diagnosis: chronic back pain, Pyelonephritis ruptured disc, spinal injury, cp cauda equina, spinal stenosis. 13:18 Patient medically screened. 15:00 Data reviewed: vital signs, nurses notes, lab test result(s), radiologic studies, CT cp scan. 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 Response to treatment: the patient's symptoms have markedly improved after treatment, and as a result, I will discharge patient. 04/03 12:35 Order name: CBC with Diff; Complete Time: 13:53 04/03 13:53 Interpretation: Normal except: HGB 12.8; HCT 37.3; MPV 7.1. 04/03 12:35 Order name: CMP; Complete Time: 13:21 04/03 13:53 Interpretation: Normal except: GFR 80; AST 12; GLOB 3.8. 04/03 12:35 Order name: Lipase; Complete Time: 13:21 04/03 12:35 Order name: Urine Microscopic Only; Complete Time: 19:08 04/03 14:30 Order name: Urine Dipstick-Ancillary; Complete Time: 14:49 [facility] 04/03 14:49 Interpretation: Abnormal: UPROT 1+; UNIT Positive; UESTR Trace. 04/03 15:02 Order name: Urine Culture EDAZ 04/03 12:35 Order name: IV Saline Lock; Complete Time: 13:09 04/03 12:35 Order name: Labs collected and sent; Complete Time: 13:09 04/03 12:35 Order name: CT Stone Protocol; Complete Time: 13:21 04/03 13:22 Interpretation: Report reviewed. 04/03 12:35 Order name: Urine Dipstick-Ancillary (obtain specimen); Complete Time: 14:31 Administered Medications: 13:24 Drug: Zofran (Ondansetron) 4 mg Route: IVP; Site: right antecubital; jl7 14:31 Follow up: Response: No adverse reaction jl7 13:24 Drug: morphine 4 mg Route: IVP; Infused Over: 4 mins; Site: right antecubital; jl7 13:50 Follow up: Response: No adverse reaction; Pain is decreased jl7 14:31 Drug: Lidoderm Patch 5 % (700 mg/patch) 1 patches Route: Topical; Site: affected area; jl7 15:55 Follow up: Response: No adverse reaction jl7 14:31 Drug: Dexamethasone 10 mg Route: IVP; Site: right antecubital; jl7 15:55 Follow up: Response: No adverse reaction jl7 15:08 Drug: Rocephin (cefTRIAXone) 1 grams Route: IV; Rate: calculated rate; Site: right jl7 antecubital; 15:15 Follow up: Response: No adverse reaction; IV Status: Completed infusion jl7 Disposition: 19:08 STAFF ATTESTATION STATEMENT: I was immediately available onsite in the emergency sd2 department for consultation in the care of this patient. I did not see or examine this patient. Geni Melendez MD. Disposition Summary: 04/03/22 15:00 Discharge Ordered Location: Home cp Problem: new cp Symptoms: have improved cp Condition: Stable cp Diagnosis - Intervertebral disc disorders with radiculopathy, lumbar region cp - Constipation cp - UTI/ Urinary tract infection, site not specified cp Followup: cp - With: Keith Corral DO - When: 2 - 3 days - Reason: Recheck today's complaints Discharge Instructions: - Discharge Summary Sheet cp - Herniated Disk cp - Lumbosacral Radiculopathy cp - Back Exercises cp - Urinary Tract Infection, Adult cp Forms: - Medication Reconciliation Form cp - Thank You Letter cp - Antibiotic Education cp - Prescription Opioid Use cp Prescriptions: - Lidoderm 5 % Topical adhesive patch,medicated - apply 1 patch by TOPICAL route once daily; 10 patch; Refills: 0, Product cp Selection Permitted - Cyclobenzaprine 10 mg Oral Tablet - take 1 tablet by ORAL route every 8 hours As needed; 30 tablet; Refills: 0, cp Product Selection Permitted - Tramadol 50 mg Oral Tablet - take 1 tablet by ORAL route every 8 hours as needed; 12 tablet; Refills: 0, cp Product Selection Permitted - cefpodoxime 200 mg Oral Tablet - take 1 tablet by ORAL route every 12 hours for 7 days with food; 14 tablet; cp Refills: 0, Product Selection Permitted Signatures: Dispatcher [employer] Oneyda Hinkle, RN RN aa5 Remberto Garay PA PA cp Leal, Jahala, RN RN jl7 Geni Melendez MD MD sd2 Corrections: (The following items were deleted from the chart) 04/04 14:53 14:50 Constitutional: Negative for body aches, chills, fever, poor PO intake, cp cp 14:53 14:50 Cardiovascular: Negative for chest pain, edema, palpitations, cp cp 14:53 14:50 Respiratory: Negative for cough, shortness of breath, wheezing, cp cp 14:53 14:50 Abdomen/GI: Positive for constipation, Negative for abdominal pain, nausea, cp vomiting, and diarrhea, bowel incontinence, cp 14:53 14:50 Back: Positive for pain at rest, pain with movement, cp cp 14:53 14:50 MS/extremity: Positive for pain, of the left leg, Negative for paresthesias, cp cp 14:53 14:50 : Negative for urinary symptoms, burning with urination, bladder incontinence, cp testicular pain cp 14:53 14:50 Neuro: Positive for weakness, of the left leg, Negative for altered mental cp status, headache, numbness, tingling, cp 14:53 14:50 All other systems are negative, cp cp 15:23 04/03 12:40 Patient reports in the past he has received injections in lower back by DR anne Caal that helped pain. cp
[2022-04-03] MEDS ORDERED: CEFTRIAXONE 1000 MG/VIAL ONE (15:11)
[2022-04-03] MEDS ORDERED: NA CHLORIDE 0.9% 100 ML ONE (15:11)
[2022-04-03 17:08] VITALS: TEMP 98.4
[2022-04-03 17:16] VITALS: BP 134/80; O2SAT 98
== END 2022-04-03 15:58 | disposition home or self-care (01) ==
LOC: ER 12:11
DX: N39.0 Urinary tract infection, site not specified (principal); K59.00 Constipation, unspecified; M51.16 Intervertebral disc disorders with radiculopathy, lumbar region; I10 Essential (primary) hypertension
CPT/HCPCS: 87088; 85025; 87086; 36415; 83690; 80053; 76377; 74176; J2001; J1100; J2405; 81003; 81015; 96374; 96375; 99284

== ENCOUNTER 2022-07-10 19:25 | Emergency (ER) | payer OTHER ==
--- OUTSIDE RECORDS SUMMARY | 2022-07-10 19:35 | XMS REPORT | Continuity of Care Document ---
:1970 Author Organization [facility] t Address [address] [place] [address] Care Team Providers Name Role Phone LISA FUNK Primary Care Physician Unavailable Lisa Funk Attending Clinician Unavailable [id number] Attending Clinician Unavailable KIMBERLYN MCCRAY Attending Clinician Unavailable Kandi Garcia MD Attending Clinician KANDI GARCIA Attending Clinician Unavailable Kane Villalobos MD Attending Clinician [phone] Freida Hatch MD Attending Clinician Mary Kate Rene MD Attending Clinician Dwayne Amador MD Attending Clinician [phone] DWAYNE AMADOR Attending Clinician Unavailable KANE VILLALOBOS Attending Clinician Unavailable ALEJO ELENA Attending Clinician Unavailable Alejo Elena MD Attending Clinician SONYA ONEILL ROSHNI Attending Clinician Unavailable DR TINY LAW Attending Clinician Unavailable DR DAVE MCCALLUM Attending Clinician Unavailable [id number] Admitting Clinician Unavailable KIMBERLYN MCCRAY Admitting Clinician Unavailable KANDI GARCIA Admitting Clinician Unavailable MARY KATE RENE Admitting Clinician Unavailable ALEJO ELENA Admitting Clinician Unavailable SONYA ONEILL ROSHNI Admitting Clinician Unavailable DR TINY LAW Admitting Clinician Unavailable DR DAVE MCCALLUM Admitting Clinician Unavailable Payers Payer Name Policy Type Policy Number Effective Date Expiration Date S dallin [employer] [id number] BCBS PPO POS [id number] 2019 EPO CHOICE 00:00:00 AETNA 53 [id number] 2021 [facility] 00:00:00 - [facility] BCBS [facility] [id number] 2019 00:00:00 Problems Condition Condition Condition Status Onset Resolution Last Treating Co mments Source Name Details Category Date Date Treatment Clinician Date Fecal Fecal Disease Active 2020-[address] [facility] impaction impaction 2-23 [facility] 00:[facility]: Medical 00 [place] Dysphagia Dysphagia Disease Active [facility] 00 [place] ICH ICH Disease Active [facility] (intracere (intracere 02-13 Zeina kes bral bral 00:00: Medical hemorrhage hemorrhage 00 Ce nter ) ) Hypertensi Hypertensi Disease Active [facility] on 02-13 [facility]: Medical 00 [place] TAURUS on TAURUS on Disease Active [facility] CPAP CPAP 02-13 [facility] 00 Center No known No known Disease Unive rs active active ity of problems problems [facility] Hemiplegia Hemiplegia Problem C ommon of of left Spirit nondominan nondominan - CHI t side as t side as St late late effect of effect of Medi gallo cerebrovas nontraumat Ce nter 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, unspecifie d hemiplegia type [id number] Essential Problem Comm on (primary) Spirit hypertensi - [facility] on [facility] [id number] Nicotine Problem Commo n dependence Spirit with - [facility] nicotine-i St nduced [facility] disorder, Medical unspecifie Center d nicotine product type [id number] Dysarthria Problem C ommon [id number] as late Spirit effect of - [facility] cerebellar St cerebrovas [facility] cular Medical accident Center (CVA) [id number] Dependence Problem Co mmon on other Spirit enabling - [facility] machines and [facility] devices [facility] [id number] TOMAS Problem Common (generaliz Spirit ed anxiety - CHI disorder) [facility] [id number] Other Problem Common chronic [facility] pain - [facility] Allergies, Adverse Reactions, Alerts Allergy Allergy Status Severity Reaction(s) Onset Inactive Treating Comm ents Source Name Type Date Date Clinician NO KNOWN Drug Active [facility] ALLERGIE Class ity [facility] NO KNOWN Allergy Active [facility] Social History Social Habit Start Date Stop Date Quantity Comments Source Exposure to Not sure [facility] SARS-CoV-2 [place] [facility] (event) Branch History of [facility] - Tobacco Use [facility] Alcohol intake 2021-02-16 2021-02-16 Ex-drinker [facility] es 00:00:00 00:00:00 (finding) [facility] Tobacco use and 2021-02-13 2021-02-13 Current user [facility] [place] exposure 00:00:00 00:00:00 [facility] Sex Assigned At [address] [facility] [address] Zeina taveras 00:00:00 00:00:00 [facility] Smoking Status Start Date Stop Date Source Unknown if ever smoked [facility] Never Smoker [facility] Medications Ordered Filled Start Stop Current Ordering Indication Dosage Frequency Signature Comments Components Source Medication Medication Date Date Medication? Clinician (SIG) Name Name NIFEdipine Yes 90mg QD Take 1 [facility] t (PROCARDIA- 1-13 tablet (90 Zeina kes XL) 90 MG 00:00: mg total) Med ical (OSM) 24 hr 00 by mouth Cent er tablet daily. pantoprazol Yes 40mg QD Take [address] e 1-13 tablet (40 [facility] (PROTONIX) 00:00: mg total) Me dical 40 MG 00 by mouth Center tablet daily. potassium Yes 20meq QD Take 1 [facility] t chloride SA 1-13 tablet (20 Zeina kes (K-DUR,KLOR 00:00: mEq total) Medical -CON-M) 20 00 by mouth Cente r MEQ tablet daily. hydroCHLORO 2021-0 2021- No 12.5mg QD Take 12.[address] thiazide 1-12 01-12 mg by [facility] (HYDRODIURI 08:32: 00:00 mouth Medi gallo L) 12.5 MG 18 :00 daily. Center tablet sertraline 2021- No anxiety 50mg QD Take [address] (ZOLOFT) 50 1-12 01-12 with by mouth Natalia es MG tablet 08:32: 00:00 depression daily. Medical 18 :00 Center hydroCHLORO 0 Yes 12.5mg QD Take [address] thiazide 1-12 tablet [facility] (HYDRODIURI 00:00: (12.5 mg Me dical L) 12.5 MG 00 total) by Cent er tablet mouth daily. multivitami Yes 1{tbl} QD Take [address] n 1-12 tablet by [facility] (THERAGRAN) 00:00: mouth Medic al tablet 00 daily. Center senna 0 Yes 17.2mg QD Take [address] (SENOKOT) 1-12 tablets [facility] 8.6 mg 00:00: (17.2 mg Medical tablet 00 total) by Center mouth nightly. sertraline Yes anxiety 50mg QD Take [address] (ZOLOFT) 50 1-12 with tablet (50 Zeina kes MG tablet 00:00: depression mg total) Medical 00 by mouth Center daily. thiamine 2021-0 Yes 100mg QD Take [address] 100 MG 1-12 tablet [facility] tablet 00:00: (100 mg Medical 00 total) by Center mouth daily. acetaminoph 2021-0 Yes 650mg Take [address] en 1-12 tablets [facility] (TYLENOL) 00:00: (650 mg Medic al 325 MG 00 total) by Center tablet mouth every 4 (four) hours as needed. carvediloL 2021-0 Yes 37.5mg Q.5D Take 1.[address] (COREG) 25 1-12 tablets [facility] MG tablet 00:00: (37.5 mg Medi gallo 00 total) by Center mouth 2 (two) times daily. docusate 2022-0 Yes 100mg Q.5D Take [address] sodium 1-12 capsule [facility] (COLACE) 00:00: (100 mg Medica l 100 MG 00 total) by Center capsule mouth 2 (two) times daily. polyethylen Yes 17g Q.5D Take [address] e glycol 1-12 by mouth 2 [facility] (GLYCOLAX) 00:00: (two) Medica l 17 gram 00 times Center packet daily. gabapentin Yes 300mg Q.[id number] Take [address] (NEURONTIN) 1-12 [id number] capsule [facility] 300 MG 00:00: 3D (300 mg Medical capsule 00 total) by Center mouth 3 (three) times daily. lidocaine 4 Yes Use up to [facility] % Gel -12 two times [facility] 00:00: per day as Medical 00 needed for Center pain. magnesium Yes 30mL Take 30 [facility] hydroxide 1-12 mLs by [facility] (MILK OF 00:00: mouth Medical MAGNESIA) 00 daily as Center 400 mg/5 mL needed. Susp baclofen 2021- No Take [address] [facility] (LIORESAL) 112 03-13 tablet (5 Natalia es 5 mg Tab 00:00: 23:59 mg total) Med ical 00 :00 by mouth Center every morning AND 2 tablets (10 mg total) nightly. Do all this for 60 days. multivitami 2020-08- No 1{tbl} QD Take [address] n 2-30 -12 tablet by [facility] (THERAGRAN) 00:00: 00:00 mouth Medi gallo tablet 00 :00 daily. Center thiamine 2020-08- No 100mg QD Take 1 [facility] t 100 MG 2-12 tablet [facility] tablet 00:00: 00:00 (100 mg Medical 00 :00 total) by Center mouth daily. acetaminoph 2020-08- No 650mg Take [address] en -12 tablets [facility] (TYLENOL) 00:00: 00:00 (650 mg Medi gallo 325 MG 00 :00 total) by Center tablet mouth every 4 (four) hours as needed for up to 360 days. docusate 2020-08- No 100mg Q.5D Take 1 [facility] t sodium 08-25 capsule [facility] (COLACE) 00:00: 00:00 (100 mg Medic al 100 MG 00 :00 total) by Center capsule mouth 2 (two) times daily for 10 days. polyethylen 2020-08- No 17g Q.5D Take [address] e glycol 08-25 by mouth 2 Luke s (GLYCOLAX) 00:00: 00:00 (two) Medic al 17 gram 00 :00 times Center packet daily for 3 days. senna 2020-08- No 17.2mg QD Take [address] (SENOKOT) 08-25 tablets [facility] 8.6 mg 00:00: 00:00 (17.2 mg Medica l tablet 00 :00 total) by Center mouth nightly. Cyclobenzap Cyclobenzap 2020-08 No 1{table QD Cyclobenza rine HCl 10 rine HCl 10 2-21 t_at_be ada HCl MG MG 00:00: dtime_a 10 MG 00 s_neede d} Cyclobenzap Cyclobenzap 2020-08 No 1{table QD Cyclobenza rine HCl 10 rine HCl 10 2-21 t_at_be ada HCl MG MG 00:00: dtime_a 10 MG 00 s_neede d} Cyclobenzap Cyclobenzap 2020-08 No 1{table QD Cyclobenza rine HCl 10 rine HCl 10 2-21 t_at_be ada HCl MG MG 00:00: dtime_a 10 MG 00 s_neede d} Cyclobenzap Cyclobenzap 2020-08 No 1{table QD Cyclobenza rine HCl 10 rine HCl 10 2-21 t_at_be ada HCl MG MG 00:00: dtime_a 10 MG 00 s_neede d} Cyclobenzap Cyclobenzap 2020-08 No 1{table QD Cyclobenza rine HCl 10 rine HCl 10 2-21 t_at_be ada HCl MG MG 00:00: dtime_a 10 MG 00 s_neede d} Cyclobenzap Cyclobenzap 2020-08 No 1{table QD Cyclobenza rine HCl 10 rine HCl 10 2-21 t_at_be ada HCl MG MG 00:00: dtime_a 10 MG 00 s_neede d} Cyclobenzap Cyclobenzap 2020-08 No 1{table QD Cyclobenza rine HCl 10 rine HCl 10 2-21 t_at_be ada HCl MG MG 00:00: dtime_a 10 MG 00 s_neede d} Cyclobenzap Cyclobenzap 2020-08 No 1{table QD Cyclobenza rine HCl 10 rine HCl 10 2-21 t_at_be ada HCl MG MG 00:00: dtime_a 10 MG 00 s_neede d} Cyclobenzap Cyclobenzap 2020-08 No 1{table QD Cyclobenza rine HCl 10 rine HCl 10 2-21 t_at_be ada HCl MG MG 00:00: dtime_a 10 MG 00 s_neede d} Cyclobenzap Cyclobenzap 2020-08 No 1{table QD Cyclobenza rine HCl 10 rine HCl 10 2-21 t_at_be ada HCl MG MG 00:00: dtime_a 10 MG 00 s_neede d} Cyclobenzap Cyclobenzap 2020-08 No 1{table QD Cyclobenza rine HCl 10 rine HCl 10 2-21 t_at_be ada HCl MG MG 00:00: dtime_a 10 MG 00 s_neede d} methocarbam 2020-08 Yes 500mg 500 mg, Un freddy oL 2-18 Oral, QID, ity of (ROBAXIN) 22:00: [place] tablet 500 00 on Sat Medical mg 07/31/21 Branch at 1600, Until Discontinu ed, MARIS HYDROcodone 2020-08- No 1{tbl} 1 tablet, Univers -acetaminop 2-18 -18 Oral, ONCE i ty of hen (NORCO) 20:30: 19:34 NOW, 1 Scott as 10-325 mg 00 :00 dose, On Medica l tablet 1 Sat Branch tablet 07/31/21 at 1430, Routine methocarbam 2020-08 Yes [id number] 750mg Take 1 Univers oL 750 mg 2-18 tablet by ity o f tablet 00:00: mouth [place] 00 every 6 Medical (six) Branch hours as needed for Pain (scale 7-10) (MUSCLE SPASM). methocarbam 2020-08- No 750mg Take [address] oL 2-18 01-12 mg by [facility] (ROBAXIN) 00:00: 00:00 mouth. Medic al 750 MG 00 :00 Center tablet HYDROcodone 2020-08- No 1{tbl} Take [address] -acetaminop 2-18 12-29 tablet by Zeina darcy rios (NORCO 00:00: 00:00 mouth. Medi gallo 10-325) 00 :00 Center 10-325 mg per tablet HYDROcodone 2020-08- No [id number] 1{tbl} Take 1 U nivers -acetaminop 2-18 12-26 tablet by it y of hen 10-325 00:00: 05:59 mouth [place] mg tablet 00 :00 every 6 Medical (six) Branch hours as needed for Pain (scale 7-10) for up to 7 days. Indication s: acute pain methocarbam 2020-08- No [id number] 750mg Take 1 Univers oL 750 mg 2-18 12-18 tablet by ity of tablet 00:00: 00:00 mouth [place] 00 :00 every 6 Medical (six) Branch hours as needed for Pain (scale 7-10) (MUSCLE SPASM). carvediloL 2021- No Essential 37.5mg Q.5D Take [address] (COREG) 03-01 hypertensio tablets L ukes 12.5 MG 00:00: 00:00 n (37.5 mg Medic al tablet 00 :00 total) by Center mouth 2 (two) times daily. cloNIDine 2021- No Essential .1mg Q.[id number] Take [address] HCL 03-01 hypertensio [id number] tablet [facility] (CATAPRES) 00:00: 00:00 n 3D (0.1 mg Med ical 0.1 MG 00 :00 total) by Center tablet mouth 3 (three) times daily. NIFEdipine 2021- No Essential 90mg QD Take [address] (PROCARDIA- 03-01 hypertensio tablet (90 [facility] XL) 90 MG 00:00: 00:00 n mg total) Me dical (OSM) 24 hr 00 :00 by mouth Cent er tablet nightly. senna-docus 2- No 1{tbl} Q.5D Take [address] ate 03-01 tablet by [place] (HAIM S) 00:00: 00:00 mouth 2 Me dical 8.6-50 mg 00 :00 (two) Center per tablet times daily. Carvedilol Carvedilol No 1{table BID Carvedilol 25 MG 25 MG t_with_ 25 MG food} Baclofen 5 Baclofen 5 No BID Baclofen 5 MG MG MG Multi Multi No Multi Vitamin Vitamin Vitamin cloNIDine cloNIDine No 1{table BID cloNIDine HCl 0.1 MG HCl 0.1 MG t} HCl 0.1 MG Gabapentin Gabapentin No QD Gabapentin 300 MG 300 MG 300 MG NIFEdipine NIFEdipine No 1{table QD NIFEdipine ER 90 MG ER 90 MG t_on_an ER 90 MG _empty_ stomach } Sertraline Sertraline No 1{table QD Sertraline HCl 50 MG HCl 50 MG t} HCl 50 MG hydroCHLORO hydroCHLORO No QD hydroCHLOR thiazide thiazide Othiazide 12.5 MG 12.5 MG 12.5 MG NIFEdipine NIFEdipine No NIFEdipine ER 60 MG ER 60 MG ER 60 MG Baclofen 5 Baclofen 5 No Baclofen 5 MG MG MG hydroCHLORO hydroCHLORO No QD hydroCHLOR thiazide thiazide Othiazide 12.5 MG 12.5 MG 12.5 MG Multi Multi No Multi Vitamin Vitamin Vitamin Sertraline Sertraline No 1{table QD Sertraline HCl 50 MG HCl 50 MG t} HCl 50 MG Carvedilol Carvedilol No Carvedilol 25 MG 25 MG 25 MG cloNIDine cloNIDine No 1{table BID cloNIDine HCl 0.1 MG HCl 0.1 MG t} HCl 0.1 MG Gabapentin Gabapentin No QD Gabapentin 300 MG 300 MG 300 MG NIFEdipine NIFEdipine No NIFEdipine ER 60 MG ER 60 MG ER 60 MG Baclofen 5 Baclofen 5 No Baclofen 5 MG MG MG hydroCHLORO hydroCHLORO No QD hydroCHLOR thiazide thiazide Othiazide 12.5 MG 12.5 MG 12.5 MG Multi Multi No Multi Vitamin Vitamin Vitamin Sertraline Sertraline No 1{table QD Sertraline HCl 50 MG HCl 50 MG t} HCl 50 MG Carvedilol Carvedilol No Carvedilol 25 MG 25 MG 25 MG cloNIDine cloNIDine No 1{table BID cloNIDine HCl 0.1 MG HCl 0.1 MG t} HCl 0.1 MG Gabapentin Gabapentin No QD Gabapentin 300 MG 300 MG 300 MG NIFEdipine NIFEdipine No NIFEdipine ER 60 MG ER 60 MG ER 60 MG Baclofen 5 Baclofen 5 No Baclofen 5 MG MG MG hydroCHLORO hydroCHLORO No QD hydroCHLOR thiazide thiazide Othiazide 12.5 MG 12.5 MG 12.5 MG Multi Multi No Multi Vitamin Vitamin Vitamin Sertraline Sertraline No 1{table QD Sertraline HCl 50 MG HCl 50 MG t} HCl 50 MG Carvedilol Carvedilol No Carvedilol 25 MG 25 MG 25 MG cloNIDine cloNIDine No 1{table BID cloNIDine HCl 0.1 MG HCl 0.1 MG t} HCl 0.1 MG Gabapentin Gabapentin No QD Gabapentin 300 MG 300 MG 300 MG Multi Multi No Multi Vitamin Vitamin Vitamin NIFEdipine NIFEdipine No 1{table QD NIFEdipine ER 90 MG ER 90 MG t_on_an ER 90 MG _empty_ stomach } Sertraline Sertraline No 1{table QD Sertraline HCl 50 MG HCl 50 MG t} HCl 50 MG NIFEdipine NIFEdipine No NIFEdipine ER 60 MG ER 60 MG ER 60 MG Carvedilol Carvedilol No 1{table BID Carvedilol 25 MG 25 MG t_with_ 25 MG food} Lidocaine 5 Lidocaine 5 No QD Lidocaine % % 5 % Gabapentin Gabapentin No QD Gabapentin 300 MG 300 MG 300 MG Carvedilol Carvedilol No Carvedilol 25 MG 25 MG 25 MG hydroCHLORO hydroCHLORO No QD hydroCHLOR thiazide thiazide Othiazide 12.5 MG 12.5 MG 12.5 MG cloNIDine cloNIDine No 1{table BID cloNIDine HCl 0.1 MG HCl 0.1 MG t} HCl 0.1 MG Cyclobenzap Cyclobenzap No 1{table QD Cyclobenza rine HCl 10 rine HCl 10 t_at_be ada HCl MG MG dtime_a 10 MG s_neede d} Baclofen 5 Baclofen 5 No Baclofen 5 MG MG MG Baclofen 5 Baclofen 5 No BID Baclofen 5 MG MG MG Cefpodoxime Cefpodoxime No 1{table BID Cefpodoxim Proxetil Proxetil t_with_ e Proxetil 200 MG 200 MG food} 200 MG Multi Multi No Multi Vitamin Vitamin Vitamin NIFEdipine NIFEdipine No 1{table QD NIFEdipine ER 90 MG ER 90 MG t_on_an ER 90 MG _empty_ stomach } Sertraline Sertraline No 1{table QD Sertraline HCl 50 MG HCl 50 MG t} HCl 50 MG NIFEdipine NIFEdipine No NIFEdipine ER 60 MG ER 60 MG ER 60 MG Carvedilol Carvedilol No 1{table BID Carvedilol 25 MG 25 MG t_with_ 25 MG food} Lidocaine 5 Lidocaine 5 No QD Lidocaine % % 5 % Gabapentin Gabapentin No QD Gabapentin 300 MG 300 MG 300 MG Carvedilol Carvedilol No Carvedilol 25 MG 25 MG 25 MG hydroCHLORO hydroCHLORO No QD hydroCHLOR thiazide thiazide Othiazide 12.5 MG 12.5 MG 12.5 MG cloNIDine cloNIDine No 1{table BID cloNIDine HCl 0.1 MG HCl 0.1 MG t} HCl 0.1 MG Cyclobenzap Cyclobenzap No 1{table QD Cyclobenza rine HCl 10 rine HCl 10 t_at_be ada HCl MG MG dtime_a 10 MG s_neede d} Baclofen 5 Baclofen 5 No Baclofen 5 MG MG MG Baclofen 5 Baclofen 5 No BID Baclofen 5 MG MG MG Cefpodoxime Cefpodoxime No 1{table BID Cefpodoxim Proxetil Proxetil t_with_ e Proxetil 200 MG 200 MG food} 200 MG Multi Multi No Multi Vitamin Vitamin Vitamin Sertraline Sertraline No 1{table QD Sertraline HCl 50 MG HCl 50 MG t} HCl 50 MG Carvedilol Carvedilol No Carvedilol 25 MG 25 MG 25 MG Cyclobenzap Cyclobenzap No 1{table QD Cyclobenza rine HCl 10 rine HCl 10 t_at_be ada HCl MG MG dtime_a 10 MG s_neede d} Baclofen 5 Baclofen 5 No Baclofen 5 MG MG MG NIFEdipine NIFEdipine No 1{table QD NIFEdipine ER 90 MG ER 90 MG t_on_an ER 90 MG _empty_ stomach } Lidocaine 5 Lidocaine 5 No QD Lidocaine % % 5 % Baclofen 5 Baclofen 5 No BID Baclofen 5 MG MG MG Cefpodoxime Cefpodoxime No 1{table BID Cefpodoxim Proxetil Proxetil t_with_ e Proxetil 200 MG 200 MG food} 200 MG Gabapentin Gabapentin No QD Gabapentin 300 MG 300 MG 300 MG NIFEdipine NIFEdipine No NIFEdipine ER 60 MG ER 60 MG ER 60 MG Carvedilol Carvedilol No 1{table BID Carvedilol 25 MG 25 MG t_with_ 25 MG food} Multi Multi No Multi Vitamin Vitamin Vitamin Sertraline Sertraline No 1{table QD Sertraline HCl 50 MG HCl 50 MG t} HCl 50 MG Carvedilol Carvedilol No Carvedilol 25 MG 25 MG 25 MG Cyclobenzap Cyclobenzap No 1{table QD Cyclobenza rine HCl 10 rine HCl 10 t_at_be ada HCl MG MG dtime_a 10 MG s_neede d} Baclofen 5 Baclofen 5 No Baclofen 5 MG MG MG NIFEdipine NIFEdipine No 1{table QD NIFEdipine ER 90 MG ER 90 MG t_on_an ER 90 MG _empty_ stomach } Lidocaine 5 Lidocaine 5 No QD Lidocaine % % 5 % Baclofen 5 Baclofen 5 No BID Baclofen 5 MG MG MG Cefpodoxime Cefpodoxime No 1{table BID Cefpodoxim Proxetil Proxetil t_with_ e Proxetil 200 MG 200 MG food} 200 MG Gabapentin Gabapentin No QD Gabapentin 300 MG 300 MG 300 MG NIFEdipine NIFEdipine No NIFEdipine ER 60 MG ER 60 MG ER 60 MG Carvedilol Carvedilol No 1{table BID Carvedilol 25 MG 25 MG t_with_ 25 MG food} Multi Multi No Multi Vitamin Vitamin Vitamin NIFEdipine NIFEdipine No 1{table QD NIFEdipine ER 90 MG ER 90 MG t_on_an ER 90 MG _empty_ stomach } Sertraline Sertraline No 1{table QD Sertraline HCl 50 MG HCl 50 MG t} HCl 50 MG NIFEdipine NIFEdipine No NIFEdipine ER 60 MG ER 60 MG ER 60 MG Carvedilol Carvedilol No 1{table BID Carvedilol 25 MG 25 MG t_with_ 25 MG food} Lidocaine 5 Lidocaine 5 No QD Lidocaine % % 5 % Gabapentin Gabapentin No QD Gabapentin 300 MG 300 MG 300 MG Carvedilol Carvedilol No Carvedilol 25 MG 25 MG 25 MG hydroCHLORO hydroCHLORO No QD hydroCHLOR thiazide thiazide Othiazide 12.5 MG 12.5 MG 12.5 MG cloNIDine cloNIDine No 1{table BID cloNIDine HCl 0.1 MG HCl 0.1 MG t} HCl 0.1 MG Cyclobenzap Cyclobenzap No 1{table QD Cyclobenza rine HCl 10 rine HCl 10 t_at_be ada HCl MG MG dtime_a 10 MG s_neede d} Baclofen 5 Baclofen 5 No Baclofen 5 MG MG MG Baclofen 5 Baclofen 5 No BID Baclofen 5 MG MG MG Cefpodoxime Cefpodoxime No 1{table BID Cefpodoxim Proxetil Proxetil t_with_ e Proxetil 200 MG 200 MG food} 200 MG Multi Multi No Multi Vitamin Vitamin Vitamin NIFEdipine NIFEdipine No 1{table QD NIFEdipine ER 90 MG ER 90 MG t_on_an ER 90 MG _empty_ stomach } Sertraline Sertraline No 1{table QD Sertraline HCl 50 MG HCl 50 MG t} HCl 50 MG NIFEdipine NIFEdipine No NIFEdipine ER 60 MG ER 60 MG ER 60 MG Carvedilol Carvedilol No 1{table BID Carvedilol 25 MG 25 MG t_with_ 25 MG food} Lidocaine 5 Lidocaine 5 No QD Lidocaine % % 5 % Gabapentin Gabapentin No QD Gabapentin 300 MG 300 MG 300 MG Carvedilol Carvedilol No Carvedilol 25 MG 25 MG 25 MG hydroCHLORO hydroCHLORO No QD hydroCHLOR thiazide thiazide Othiazide 12.5 MG 12.5 MG 12.5 MG cloNIDine cloNIDine No 1{table BID cloNIDine HCl 0.1 MG HCl 0.1 MG t} HCl 0.1 MG Cyclobenzap Cyclobenzap No 1{table QD Cyclobenza rine HCl 10 rine HCl 10 t_at_be ada HCl MG MG dtime_a 10 MG s_neede d} Baclofen 5 Baclofen 5 No Baclofen 5 MG MG MG Baclofen 5 Baclofen 5 No BID Baclofen 5 MG MG MG Cefpodoxime Cefpodoxime No 1{table BID Cefpodoxim Proxetil Proxetil t_with_ e Proxetil 200 MG 200 MG food} 200 MG Carvedilol Carvedilol No 1{table BID Carvedilol 25 MG 25 MG t_with_ 25 MG food} Baclofen 5 Baclofen 5 No BID Baclofen 5 MG MG MG Multi Multi No Multi Vitamin Vitamin Vitamin cloNIDine cloNIDine No 1{table BID cloNIDine HCl 0.1 MG HCl 0.1 MG t} HCl 0.1 MG Gabapentin Gabapentin No QD Gabapentin 300 MG 300 MG 300 MG NIFEdipine NIFEdipine No 1{table QD NIFEdipine ER 90 MG ER 90 MG t_on_an ER 90 MG _empty_ stomach } Sertraline Sertraline No 1{table QD Sertraline HCl 50 MG HCl 50 MG t} HCl 50 MG hydroCHLORO hydroCHLORO No QD hydroCHLOR thiazide thiazide Othiazide 12.5 MG 12.5 MG 12.5 MG Vital Signs Vital Name Observation Time Observation Value Comments Source HEIGHT 2021-02-13 13:56:00 175.3 cm WEIGHT 2021-02-13 13:56:00 124.331 kg height 2022-06-15 15:20:00 68 [in_i] Common [facility] weight 2022-06-15 15:20:00 205.5 [lb_av] [facility] temperature 2022-06-15 15:20:00 97.9 [degF] [facility] bmi 2022-06-15 15:20:00 31.24 kg/m2 [facility] oximetry 2022-06-15 15:20:00 97 % [facility] respiratory rate 2022-06-15 15:20:00 17 /min Comm on [facility] blood pressure 2022-06-15 15:20:00 130 mm[Hg] Common [facility] - systolic [facility] blood pressure 2022-06-15 15:20:00 63 mm[Hg] Common [facility] - diastolic [facility] height 2022-04-05 09:40:00 68 [in_i] [facility] weight 2022-04-05 09:40:00 200 [lb_av] [facility] temperature 2022-04-05 09:40:00 97.9 [degF] [facility] bmi 2022-04-05 09:40:00 30.41 kg/m2 [facility] oximetry 2022-04-05 09:40:00 98 % [facility] respiratory rate 2022-04-05 09:40:00 18 /min Comm on [facility] blood pressure 2022-04-05 09:40:00 125 mm[Hg] Common [facility] - systolic [facility] blood pressure 2022-04-05 09:40:00 74 mm[Hg] Common [facility] - diastolic [facility] blood pressure 2022-01-13 10:30:00 117 mm[Hg] [facility] - systolic [facility] blood pressure 2022-01-13 10:30:00 69 mm[Hg] [facility] diastolic [facility] height 2022-01-13 10:30:00 68 [in_i] [facility] weight 2022-01-13 10:30:00 204.5 [lb_av] [facility] temperature 2022-01-13 10:30:00 98.2 [degF] [facility] bmi 2022-01-13 10:30:00 31.09 kg/m2 [facility] oximetry 2022-01-13 10:30:00 98 % [facility] respiratory rate 2022-01-13 10:30:00 18 /min Comm on [facility] WEIGHT 2021-08-26 03:46:00 97.3 kg WEIGHT 2021-08-24 05:06:00 96.344 kg WEIGHT 2021-08-23 04:29:00 97.115 kg WEIGHT 2021-08-22 03:22:00 95.255 kg WEIGHT 2021-08-21 05:46:00 96.299 kg WEIGHT 2021-08-19 04:56:00 98.158 kg WEIGHT 2021-08-18 20:49:00 96.9 kg WEIGHT 2021-08-18 04:00:00 96.888 kg WEIGHT 2021-08-16 05:11:00 97.342 kg WEIGHT 2021-08-15 03:57:00 97.569 kg WEIGHT 2021-08-14 03:14:00 97.614 kg WEIGHT 2021-08-13 05:00:00 94 kg WEIGHT 2021-08-12 03:55:00 94 kg HEIGHT 2021-08-11 16:44:00 172.7 cm WEIGHT 2021-08-11 16:44:00 93.985 kg WEIGHT 2021-08-26 03:46:00 97.3 kg WEIGHT 2021-08-24 05:06:00 96.344 kg WEIGHT 2021-08-23 04:29:00 97.115 kg WEIGHT 2021-08-22 03:22:00 95.255 kg WEIGHT 2021-08-21 05:46:00 96.299 kg WEIGHT 2021-08-19 04:56:00 98.158 kg WEIGHT 2021-08-18 20:49:00 96.9 kg WEIGHT 2021-08-18 04:00:00 96.888 kg WEIGHT 2021-08-16 05:11:00 97.342 kg WEIGHT 2021-08-15 03:57:00 97.569 kg WEIGHT 2021-08-14 03:14:00 97.614 kg WEIGHT 2021-08-13 05:00:00 94 kg WEIGHT 2021-08-12 03:55:00 94 kg HEIGHT 2021-08-11 16:44:00 172.7 cm WEIGHT 2021-08-11 16:44:00 93.985 kg WEIGHT 2021-08-26 03:46:00 97.3 kg WEIGHT 2021-08-24 05:06:00 96.344 kg WEIGHT 2021-08-23 04:29:00 97.115 kg WEIGHT 2021-08-22 03:22:00 95.255 kg WEIGHT 2021-08-21 05:46:00 96.299 kg WEIGHT 2021-08-19 04:56:00 98.158 kg WEIGHT 2021-08-18 20:49:00 96.9 kg WEIGHT 2021-08-18 04:00:00 96.888 kg WEIGHT 2021-08-16 05:11:00 97.342 kg WEIGHT 2021-08-15 03:57:00 97.569 kg WEIGHT 2021-08-14 03:14:00 97.614 kg WEIGHT 2021-08-13 05:00:00 94 kg WEIGHT 2021-08-12 03:55:00 94 kg HEIGHT 2021-08-11 16:44:00 172.7 cm WEIGHT 2021-08-11 16:44:00 93.985 kg WEIGHT 2021-08-11 04:44:00 96.3 kg WEIGHT 2021-08-09 19:04:00 94.3 kg WEIGHT 2021-08-09 04:55:00 94.3 kg WEIGHT 2021-08-07 07:00:00 96.707 kg HEIGHT 2021-08-05 05:00:00 172.7 cm WEIGHT 2021-08-11 04:44:00 96.3 kg WEIGHT 2021-08-09 19:04:00 94.3 kg WEIGHT 2021-08-09 04:55:00 94.3 kg WEIGHT 2021-08-07 07:00:00 96.707 kg HEIGHT 2021-08-05 05:00:00 172.7 cm WEIGHT 2021-08-11 04:44:00 96.3 kg WEIGHT 2021-08-09 19:04:00 94.3 kg WEIGHT 2021-08-09 04:55:00 94.3 kg WEIGHT 2021-08-07 07:00:00 96.707 kg HEIGHT 2021-08-05 05:00:00 172.7 cm Systolic blood 2021-07-31 19:30:00 107 mm[Hg] Univer sity of pressure [facility] Diastolic blood 2021-07-31 19:30:00 83 mm[Hg] Unive rsity of [facility] Heart rate 2021-07-31 19:30:00 78 /min [facility] Respiratory rate 2021-07-31 19:30:00 19 /min [facility] Oxygen saturation in 2021-07-31 19:30:00 98 /min [facility] Arterial blood by [facility] Pulse oximetry [facility] Body temperature 2021-07-31 17:31:38 37.28 Nicole [facility] height 2021-07-31 17:28:00 172.7 cm [facility] Body weight 2021-07-31 17:28:00 99.791 kg [facility] BMI 2021-07-31 17:28:00 33.45 kg/m2 [facility] HEIGHT 2021-02-13 13:56:00 175.3 cm WEIGHT 2021-02-13 13:56:00 124.331 kg Systolic blood 2021-08-26 03:46:00 115 mm[Hg] [facility] Diastolic blood 2021-08-26 03:46:00 70 mm[Hg] [facility] Heart rate 2021-08-26 03:46:00 79 /min [facility] Body temperature 2021-08-26 03:46:00 36.33 Nicole [facility] Respiratory rate 2021-08-26 03:46:00 16 /min [facility] Body weight 2021-08-26 03:46:00 97.3 kg [facility] BMI 2021-08-26 03:46:00 32.62 kg/m2 [facility] Oxygen saturation in 2021-08-26 03:46:00 95 /min [facility] Arterial blood by Medical Ce nter Pulse oximetry Body height 2021-08-11 16:44:00 172.7 cm [facility] Procedures Procedure Date / Time Performing Clinician Source Performed SARS-COV2/RT-PCR ([facility] 2021-08-23 04:14:00 [facility] REF LABS) [place] BASIC METABOLIC PANEL 2021-08-23 04:07[facility]O 2021-08-23 04:07:00 Samira [facility] CBC W/PLT COUNT & AUTO 2021-08-23 04:07:00 Samira [facility] BASIC METABOLIC PANEL 2021-08-20 04:52:00 [facility] SARS-COV2/RT-PCR ([facility] & 2021-08-19 09:54:00 Samira [facility] REF LABS) [place] BASIC METABOLIC PANEL 2021-08-16 05:08:00 [facility] CBC W/PLT COUNT & AUTO 2021-08-16 05:08:00 [facility] CBC W/PLT COUNT & AUTO 2021-08-16 05:08:00 [facility] POTASSIUM 2021-08-13 05:01:00 Douglas Restrepo [facility] SARS-COV2/RT-PCR ([facility] 2021-08-12 23:57:00 [facility] XR ABDOMEN/KUB 1 VIEW 2021-08-12 12:25:00 [facility] XR HIP 2 VIEWS LEFT 2021-08-12 12:25:00 [facility] XR LUMBAR SPINE 2 OR 3 2021-08-12 12:25:00 [facility] COMPREHENSIVE METABOLIC 2021-08-12 04:02:00 Kandi aGrcia [facility] CBC W/PLT COUNT & AUTO 2021-08-12 04:02:00 Kandi Garcia [facility] DIFFERENTIAL Center VITAMIN B12 AND FOLATE 2021-08-12 04:02:00 Douglas Restrepo [facility] VITAMIN D, 25-HYDROXY 2021-08-12 04:02:00 Douglas Restrepo [facility] MAGNESIUM 2021-08-12 04:02:[facility] & AUTO 2021-08-12 04:02:00 Kandi Garcia [facility] URINALYSIS W/ REFLEX 2021-08-11 23:01:[facility] CBC (HEMOGRAM ONLY) 2021-08-09 05:10:00 [facility] COMPREHENSIVE METABOLIC 2021-08-09 05:10:00 [facility] CBC (HEMOGRAM ONLY) 2021-08-07 04:45:00 [facility] COMPREHENSIVE METABOLIC 2021-08-07 04:45:00 [facility] BASIC METABOLIC PANEL 2021-08-06 04:15:00 Freida Hatch [facility] HEPATIC FUNCTION PANEL 2021-08-06 04:15:00 Freida Hatch [facility] MAGNESIUM 2021-08-06 04:15:00 Freida Hatch [facility] PHOSPHORUS 2021-08-06 04:15:00 Freida Hatch [facility] CBC W/PLT COUNT & AUTO 2021-08-06 04:15:00 Freida Hatch [facility] CBC W/PLT COUNT & AUTO 2021-08-06 04:15:00 Freida Hatch [facility] URINALYSIS W/ 2021-08-05 18:33:00 Freida Hatch [facility] SARS-COV2/RT-PCR ([facility] & 2021-08-05 13:16:00 Freida Hatch [facility] REF LABS) Center XR ABDOMEN/KUB 1 VIEW 2021-08-05 10:59:00 Freida Hatch [facility] CBC W/PLT COUNT & AUTO 2021-08-05 09:55:00 Freida Hatch [facility] BASIC METABOLIC PANEL 2021-08-05 09:55:00 Freida Hatch [facility] HEPATIC FUNCTION PANEL 2021-08-05 09:55:00 Freida Hatch [facility] HEPATITIS PANEL, ACUTE 2021-08-05 09:55:00 Freida Hatch [facility] CBC W/PLT COUNT & AUTO 2021-08-05 09:55:00 Freida Hatch [facility] XR LUMBAR SPINE 3 VW 2021-07-31 18:35:01 Alejo Elena [facility] XR HIP 1 VW LEFT 2021-07-31 18:35:01 Alejo Elena [facility] Plan of Care Planned Activity Planned Date Details Comments Source Future Scheduled 2024-02-15 Lipid panel (procedure) [facility] Test 00:00:00 [code = 97852201] Medical Ce nter Future Scheduled 2022-04-14 INFLUENZA VACCINE (#1) [facility] 00:[facility]:00 [code = INFLUENZA Medical Ce nter VACCINE (#1)] Future Scheduled 2022-02-[address] [facility] Test 00:00:00 Counseling and Medical Cente r Screening (12+) [code = Tobacco Cessation Counseling and Screening (12+)] Future Scheduled 2021 SHINGLES VACCINES ([address] [facility] Test 00:00:00 2) [code = SHINGLES Medical Center VACCINES (1 of 2)] Future Scheduled 2021-08-[address] [facility] Test 00:00:00 (12+) [code = Medical Center DEPRESSION SCREENING (12+)] Future Scheduled 1990 DTAP/TDAP/TD VACCINES [facility] Test 00:00:00 (1 - Tdap) [code = Medical C enter DTAP/TDAP/TD VACCINES (1 - Tdap)] Future Scheduled 1971-03-22 COVID-19 VACCINE (#1) [facility] Test 00:00:00 [code = COVID-[address] VACCINE (#1)] Future Scheduled 1971 CT Colonography (combo) [facility] Test 00:00:00 [code = CT Colonography [facility] (combo)] Future Scheduled 1970 Screening for malignant [facility] Test 00:00:00 neoplasm of colon Medical Ce nter (procedure) [code = 569197443] Future Scheduled 1971 Screening for malignant [facility] Test 00:00:00 neoplasm of colon Medical Ce nter (procedure) [code = 232631980] Future Scheduled 1971 Screening for malignant [facility] Test 00:00:00 neoplasm of colon Medical Ce nter (procedure) [code = 612589960] Future Scheduled 1971 Screening for malignant [facility] Test 00:00:00 neoplasm of colon Medical Ce nter (procedure) [code = 753810128] Future Scheduled 1970 Sigmoidoscopy [code = [facility] 00:[facility] Sigmoidoscopy] Medical Cente r Encounters Start End Encounter Admission Attending Care Care Encounter Source Date/Time Date/Time Type Type Clinicians Facility Department ID 2022-06-13 Outpatient Funk, STDANE STLMLC [id number] Common 15:54:03 [facility] 2022-05-31 Outpatient Funk, STDANE STLMLC [id number] Common 11:20:02 [facility] 2022-01-13 Outpatient Funk, STDANE STLMLC [id number] Common 10:09:03 [facility] 2021-09-09 Outpatient 3 [id number] ENCSL CVA [id number] [facility] 12:30:12 [id number] [place] 2021-09-09 Outpatient 3 [id number] ENCSL CVA [id number] [facility] 12:29:37 [id number] [facility] [place] 2021-09-09 Outpatient 3 [id number] ENCSL REF [id number] [facility] 12:28:49 [id number] [facility] [place] 2021-02-13 Inpatient ER [facility] Neuro ICU [id number] [facility] 13:44:00 A KIMBERLYN HUYNH 2022-06-16 2022-06-16 (TEL) STLMLC STLMLC [id number] Co mmon 00:00:00 00:00:00 [facility] 2022-06-15 2022-06-15 OFFICE STLMLC STLMLC [id number] Co mmon 00:00:00 00:00:00 VISIT Spirit ESTAB PT - [facility] LEVEL 4 [facility] 2022-06-01 2022-06-01 (TEL) STLMLC STLMLC [id number] Co mmon 00:00:00 00:00:00 [facility] 2022-04-05 2022-04-05 OFFICE STLMLC STLMLC [id number] Co mmon 00:00:00 00:00:00 VISIT EST Spir it PT LEVEL 3 - [facility] 2022-03-31 2022-03-31 (TEL) STLMLC STLMLC [id number] Co mmon 00:00:00 00:00:00 [facility] 2022-03-07 2022-03-07 (TEL) STLMLC STLC [id number] Co mmon 00:00:00 00:00:00 [facility] 2022-03-07 2022-03-07 (TEL) STLMLC STLMLC [id number] Co mmon 00:00:00 00:00:00 Spirit [facility] 2022-01-24 2022-01-24 (TEL) STLMLC STLC [id number] Co mmon 00:00:00 00:00:00 Spirit [facility] 2022-01-13 2022-01-13 OFFICE STLMLC STLC [id number] Co mmon 00:00:00 00:00:00 VISIT formerly [facility] 4 [facility] 2021-08-11 2021-08-26 [facility] [id number] 16:39:00 12:21:00 Encounter Natalia Restrepo [facility] 2021-08-11 2021-08-26 Inpatient EL DEL SLEH PM\T\R [id number] [facility] 16:39:00 12:21:00 AKNDI RESTREPO 2021-08-14 2021-08-14 Travel [facility] [id number] [facility] 00:[facility]00 00:00:00 [facility] 2021-08-05 2021-08-11 [facility] [id number] 05:27:00 16:38:00 Encounter Freida Hatch Fang-Ying [facility] 2021-08-05 2021-08-11 Inpatient ER PERRY, [facility] [id number] [facility] 05:27:00 16:38:00 [facility] 2021-08-11 2021-08-11 Travel [facility] [id number] [facility] 00:[facility]00 00:00:00 [facility] 2021-08-05 2021-08-05 Travel [facility] [id number] [facility] 00:00:00 00:00:00 [facility] 2021-07-31 2021-07-31 Emergency X LYNNETTE ELENA ERT [id number] Univers 11:23:00 14:06:00 ALEJO ity [facility] 2021-07-31 2021-07-31 Emergency Kassy [facility] [phone] [id number] Univers 11:23:00 14:06:00 [facility] [id number] ity [facility] [id number] [facility] [id number] [place] [id number] [place] 2021-03-03 2021-03-26 Inpatient 3 JERZY ONEILL CVA [id number] [facility] 14:25:00 13:05:00 SONYA [id number] [facility] [place] 2021-03-14 2021-03-14 Outpatient TINY SAM [facility] [id number] [facility] 20:50:00 23:59:00 [facility] 2021-03-09 2021-03-09 Outpatient Ruth MCCALLUM [facility] [id number] [facility] 11:17:00 23:59:[address] [facility] 2021-03-04 2021-03-04 Outpatient TINY SAM [facility] [id number] [facility] 12:50:00 23:59:00 [facility] Results Test Description Test Time Test Comments Results Result Comments Source SARS-CoV2/RT-PCR (Asymptomatic ONLY) 2021-08-23 21:07:19 Test Item Value Reference Range Interpretation Comme nts SARS-COV2/RT-PCR (test code = Negative Negative 00683-7) ELIZABETH (test code = ELIZABETH) Negative result for this test determines that SARS-CoV-2 RNA was not present in the specimen above the Limit of Detection (LOD). However, Negative results do not preclude SARS-CoV-2 infection and should not be used as the sole basis for treatment or patient management decisions. Negative results must be combined with clinical observations, patient history, and epidemiological information. A false negative result may occur if a specimen is improperly collected, transported, or handled. A false negative result should be considered if patient's recent exposures or clinical presentation indicate that COVID-19 (SARS-CoV-2) is likely and diagnostic tests for other causes of illness are negative. Re-testing should be considered in cases of suspected false negatives. The limit of detection for this assay is 100 copies/mL. This SARS-CoV-2 test is a real-time RT_PCR test intended for the qualitative detection of nucleic acid from SARS-CoV-2 in a nasopharyngeal swab specimen collected from individuals suspected of COVID-19 by their healthcare provider. This test has not been Food and Drug [...] is revoked under Section 564(g) of the Act. Testing was performed using the Qureshi SARS-CoV-2 assay. Fact Sheet for Healthcare Providers:https://www.DDVTECH.MessageBunker cam/umberto/RT SARS-CoV-2 HCP Fact Sheet 51-357248.pdf Fact Sheet for Healthcare Patients:https://www.DDVTECH.MessageBunkero tt/umberto/RT SARS-CoV-2 Patient Fact Sheet EN 51-572492P5.pdf Lab Interpretation (test code = Normal 73256-3) [facility])2021-08-23 21:07:19 Test Item Value Reference Range Interpretation Comments SARS-COV2/RT-PCR (test code = Negative Negative 5968056) Negative result for this test determines that SARS-CoV-2 RNA was not present in the specimen above the Limit of Detection (LOD). However, Negative results do not preclude SARS-CoV-2 infection and should not be used as the sole basis for treatment or patient management decisions. Negative results must be combined with clinical observations, patient history, and epidemiological information. A false negative result may occur if a specimen is improperly collected, transported, or handled. A false negative result should be considered if patient's recent exposures or clinical presentation indicate that COVID-19 (SARS-CoV-2) is likely and diagnostic tests for other causes of illness are negative. Re-testing should be considered in cases of suspected false negatives.The limit of detection for this assay is 100 copies/mL.This SARS-CoV-2 test is a real-time RT_PCR test intended for the qualitative detection of [...] 564(g) of the Act.Testing was performed using [employer] SARS-CoV-2 assay.Fact Sheet for Healthcare Providers:https://www.DDVTECH.EarlyShares/umberto/RT SARS-CoV-2 HCP Fact Sheet 51- 575110.pdfFact Sheet for Healthcare Patients:https://www.DDVTECH.EarlyShares/umberto/RT SARS-CoV-2 Patient Fact Sheet EN 51-269199N9.pdfBasic Metabolic [id number] 05:13:45 Test Item Value Reference Range Interpretation Comments Sodium (test code = 140 meq/L 333-783 6826-2) Potassium (test code 3.8 meq/L 3.5-5.1 = 2823-3) Chloride (test code = 106 meq/L 98-107 2075-0) CO2 (test code = 28 meq/L 22-29 8-9) BUN (test code = 21 mg/dL 7-21 3094-0) Creatinine (test code 1.00 mg/dL 0.57-1.25 = 2160-0) Glucose (test code = 100 mg/dL 70-105 2345-7) Calcium (test code = 9.2 mg/dL 8.4-10.2 63411-3) EGFR (test code = 79 mL/min/1.73 [place] [address]-9) ACCURATE CREATININE FAUSTINO KRAFT IN PREDICTING GLOMERULAR FILT RATION RATE. ESTIMATED GFR IS NOT APPLICAB LE FOR DIALYSIS PATIEN TS. [facility] [id number] 05:13:45 Test Item Value Reference Range Interpretation Comments SODIUM (BEAKER) 140 meq/L 136-145 (test code = 381) POTASSIUM (BEAKER) 3.8 meq/L 3.5-5.1 (test code = 379) CHLORIDE (BEAKER) 106 meq/L 98-107 (test code = 382) CO2 (BEAKER) (test 28 meq/L 22-29 code = 355) BLOOD UREA NITROGEN 21 mg/dL 7-21 (BEAKER) (test code = 354) CREATININE (BEAKER) 1.00 mg/dL 0.57-1.25 (test code = 358) GLUCOSE RANDOM 100 mg/dL 70-105 (BEAKER) (test code = 652) CALCIUM (BEAKER) 9.2 mg/dL 8.4-10.2 (test code = 697) EGFR (BEAKER) (test 79 mL/min/1.73 ESTIMA JAX GFR IS code = 1092) sq m NOT ACCURATE CREATININE CLEARANCE IN PREDICTING GLOMERULAR FILTRATION RATE . ESTIMATED GFR I S NOT APPLICABLE FOR DIALYSIS PATIEN TS. CBC with platelet count + automated [id number] 04:36:55 Test Item Value Reference Range Interpretation Comments WBC (test code = 6690-2) 7.2 See_Comment [A utomated message] The system Traxer generated this result transmitted ref erence range: 3.5 - 10 .5 K/L. The refe rence range was not u sed to interpret this result as normal/abnor mal. RBC (test code = 789-8) 3.87 See_Comment L [Au tomated message] The system Traxer generated this result transmitted ref erence range: 4.63 - 6 .08 M/L. The refe rence range was not u sed to interpret this result as normal/abnor mal. MCHC (test code = 786-4) 32.7 See_Comment L [A utomated message] The system Traxer generated this result transmitted ref erence range: 32.3 - 3 6.5 GM/DL. The refe rence range was not u sed to interpret this result as normal/abnor mal. Hematocrit (test code = 34.3 % 40.1-51.0 L 4544-3) MCV (test code = 787-2) 88.6 fL 79.0-92.2 MCH (test code = 785-6) 28.9 pg 25.7-32.2 RDW (test code = 788-0) 13.5 % 11.6-14.4 Platelets (test code = 277 See_Comment [Aut omated message] 777-3) The system Traxer generated this result transmitted ref erence range: 150 - 45 0 K/CU MM. The referen ce range was not u sed to interpret this result as normal/abnor mal. MPV (test code = 9.5 fL 9.4-12.4 69576-0) % Neutros (test code = 51 % 429) % Lymphs (test code = 37 % 430) % Monos (test code = 9 % 431) % Eos (test code = 432) 2 % % Baso (test code = 437) 0 % # Neutros (test code = 3.68 See_Comment [Aut omated message] 670) The system Traxer generated this result transmitted ref erence range: 1.78 - 5 .38 K/L. The refe rence range was not u sed to interpret this result as normal/abnor mal. # Lymphs (test code = 2.69 See_Comment [Auto mated message] 414) The system Traxer generated this result transmitted ref erence range: 1.32 - 3 .57 K/L. The refe rence range was not u sed to interpret this result as normal/abnor mal. # Monos (test code = 0.64 See_Comment [Autom ated message] 415) The system Traxer generated this result transmitted ref erence range: 0.30 - 0 .82 K/L. The refe rence range was not u sed to interpret this result as normal/abnor mal. # Eos (test code = 416) 0.15 See_Comment [Au tomated message] The system Traxer generated this result transmitted ref erence range: 0.04 - 0 .54 K/L. The refe rence range was not u sed to interpret this result as normal/abnor mal. # Baso (test code = 417) 0.03 See_Comment [A utomated message] The system Traxer generated this result transmitted ref erence range: 0.01 - 0 .08 K/L. The refe rence range was not u sed to interpret this result as normal/abnor mal. Immature 0 % 0-1 Granulocytes-Relative (test code = 2801) Lab Interpretation (test Abnormal code = 92989-0) [facility] W/PLT COUNT & AUTO [id number] 04:36:55 Test Item Value Reference Range Interpretation Comments WHITE BLOOD CELL COUNT (BEAKER) 7.2 K/ L 3.5-10.5 (test code = 775) RED BLOOD CELL COUNT (BEAKER) 3.87 M/ L 4.63-6.08 L (test code = 761) HEMOGLOBIN (BEAKER) (test code = 11.2 GM/DL 13.7-17.5 L 410) HEMATOCRIT (BEAKER) (test code = 34.3 % 40.1-51.0 L 411) MEAN CORPUSCULAR VOLUME (BEAKER) 88.6 fL 79.0-92.2 (test code = 753) MEAN CORPUSCULAR HEMOGLOBIN 28.9 pg 25.7-32.2 (BEAKER) (test code = 751) MEAN CORPUSCULAR HEMOGLOBIN CONC 32.7 GM/DL 32.3-36.5 (BEAKER) (test code = 752) RED CELL DISTRIBUTION WIDTH 13.5 % 11.6-14.4 (BEAKER) (test code = 412) PLATELET COUNT (BEAKER) (test 277 K/CU MM 150-450 code = 756) MEAN PLATELET VOLUME (BEAKER) 9.5 fL 9.4-12.4 (test code = 754) NEUTROPHILS RELATIVE PERCENT 51 % (BEAKER) (test code = 429) LYMPHOCYTES RELATIVE PERCENT 37 % (BEAKER) (test code = 430) MONOCYTES RELATIVE PERCENT 9 % (BEAKER) (test code = 431) EOSINOPHILS RELATIVE PERCENT 2 % (BEAKER) (test code = 432) BASOPHILS RELATIVE PERCENT 0 % (BEAKER) (test code = 437) NEUTROPHILS ABSOLUTE COUNT 3.68 K/ L 1.78-5.38 (BEAKER) (test code = 670) LYMPHOCYTES ABSOLUTE COUNT 2.69 K/ L 1.32-3.57 (BEAKER) (test code = 414) MONOCYTES ABSOLUTE COUNT (BEAKER) 0.64 K/ L 0.30-0.82 (test code = 415) EOSINOPHILS ABSOLUTE COUNT 0.15 K/ L 0.04-0.54 (BEAKER) (test code = 416) BASOPHILS ABSOLUTE COUNT (BEAKER) 0.03 K/ L 0.01-0.08 (test code = 417) IMMATURE GRANULOCYTES-RELATIVE 0 % 0-1 PERCENT (BEAKER) (test code = 2801) BASIC METABOLIC [id number] 05:32:31 Test Item Value Reference Range Interpretation Comments SODIUM (BEAKER) 142 meq/L 136-145 (test code = 381) POTASSIUM (BEAKER) 3.8 meq/L 3.5-5.1 (test code = 379) CHLORIDE (BEAKER) 107 meq/L 98-107 (test code = 382) CO2 (BEAKER) (test 29 meq/L 22-29 code = 355) BLOOD UREA NITROGEN 22 mg/dL 7-21 H (BEAKER) (test code = 354) CREATININE (BEAKER) 1.08 mg/dL 0.57-1.25 (test code = 358) GLUCOSE RANDOM 99 mg/dL 70-105 (BEAKER) (test code = 652) CALCIUM (BEAKER) 9.0 mg/dL 8.4-10.2 (test code = 697) EGFR (BEAKER) (test 73 mL/min/1.73 ESTIMA JAX GFR IS code = 1092) sq m NOT ACCURATE CREATININE CLEARANCE IN PREDICTING GLOMERULAR FILTRATION RATE . ESTIMATED GFR I S NOT APPLICABLE FOR DIALYSIS PATIEN TS. SARS-COV2/RT-PCR ([facility])2021-08-19 23:04:17 Test Item Value Reference Range Interpretation Comments SARS-COV2/RT-PCR (test code = Negative Negative [id number]) Negative result for this test determines that SARS-CoV-2 RNA was not present in the specimen above the Limit of Detection (LOD). However, Negative results do not preclude SARS-CoV-2 infection and should not be used as the sole basis for treatment or patient management decisions. Negative results must be combined with clinical observations, patient history, and epidemiological information. A false negative result may occur if a specimen is improperly collected, transported, or handled. A false negative result should be considered if patient's recent exposures or clinical presentation indicate that COVID-19 (SARS-CoV-2) is likely and diagnostic tests for other causes of illness are negative. Re-testing should be considered in cases of suspected false negatives.The limit of detection for this assay is 100 copies/mL.This SARS-CoV-2 test is a real-time RT_PCR test intended for the qualitative detection of [...] of the Act.Testing was performed using the Qureshi SARS-CoV-2 assay.Fact Sheet for Healthcare Providers:https://www.molecular.qureshi/umberto/RT SARS-CoV-2 HCP Fact Sheet 51- 927942.pdfFact Sheet for Healthcare Patients:https://www.molecular.qureshi/umberto/RT SARS-CoV-2 Patient Fact Sheet EN 51-395494K5.pdfJOSE RAMON ROSSI/DIMA, 1 VIEW AP 2021-08-16 10:01:00Reason for exam:->constipationShould this be performed at the bedside?->Yes [facility] : 1970 Sex: MFINAL REPORT Exam: Abdominal radiograph History: Constipation Comparison: None. Findings: No fracture. Nonobstructive bowel gas pattern. No abnormal calcifications. No significant amount of retained stool. Impression: Nonobstructive bowel gas pattern. Signed: Lenka Fotser MDReportVerified Date/Time: 08/16/2021 10:01:23 Reading Location: [facility] Reading Room [address] [place] [address] CBC W/PLT COUNT & AUTO [id number] 05:41:13 Test Item Value Reference Range Interpretation Comments WHITE BLOOD CELL COUNT (BEAKER) 6.4 K/ L 3.5-10.5 (test code = 775) RED BLOOD CELL COUNT (BEAKER) 3.82 M/ L 4.63-6.08 L (test code = 761) HEMOGLOBIN (BEAKER) (test code = 10.9 GM/DL 13.7-17.5 L 410) HEMATOCRIT (BEAKER) (test code = 33.4 % 40.1-51.0 L 411) MEAN CORPUSCULAR VOLUME (BEAKER) 87.4 fL 79.0-92.2 (test code = 753) MEAN CORPUSCULAR HEMOGLOBIN 28.5 pg 25.7-32.2 (BEAKER) (test code = 751) MEAN CORPUSCULAR HEMOGLOBIN CONC 32.6 GM/DL 32.3-36.5 (BEAKER) (test code = 752) RED CELL DISTRIBUTION WIDTH 13.2 % 11.6-14.4 (BEAKER) (test code = 412) PLATELET COUNT (BEAKER) (test 288 K/CU MM 150-450 code = 756) MEAN PLATELET VOLUME (BEAKER) 9.2 fL 9.4-12.4 L (test code = 754) NEUTROPHILS RELATIVE PERCENT 46 % (BEAKER) (test code = 429) LYMPHOCYTES RELATIVE PERCENT 41 % (BEAKER) (test code = 430) MONOCYTES RELATIVE PERCENT 10 % (BEAKER) (test code = 431) EOSINOPHILS RELATIVE PERCENT 2 % (BEAKER) (test code = 432) BASOPHILS RELATIVE PERCENT 1 % (BEAKER) (test code = 437) NEUTROPHILS ABSOLUTE COUNT 2.93 K/ L 1.78-5.38 (BEAKER) (test code = 670) LYMPHOCYTES ABSOLUTE COUNT 2.61 K/ L 1.32-3.57 (BEAKER) (test code = 414) MONOCYTES ABSOLUTE COUNT (BEAKER) 0.62 K/ L 0.30-0.82 (test code = 415) EOSINOPHILS ABSOLUTE COUNT 0.12 K/ L 0.04-0.54 (BEAKER) (test code = 416) BASOPHILS ABSOLUTE COUNT (BEAKER) 0.05 K/ L 0.01-0.08 (test code = 417) IMMATURE GRANULOCYTES-RELATIVE 0 % 0-1 PERCENT (BEAKER) (test code = 2801) BASIC METABOLIC [id number] 05:41:01 Test Item Value Reference Range Interpretation Comments SODIUM (BEAKER) 142 meq/L 136-145 (test code = 381) POTASSIUM (BEAKER) 3.8 meq/L 3.5-5.1 (test code = 379) CHLORIDE (BEAKER) 108 meq/L 98-107 H (test code = 382) CO2 (BEAKER) (test 29 meq/L 22-29 code = 355) BLOOD UREA NITROGEN 18 mg/dL 7-21 (BEAKER) (test code = 354) CREATININE (BEAKER) 0.99 mg/dL 0.57-1.25 (test code = 358) GLUCOSE RANDOM 110 mg/dL 70-105 H (BEAKER) (test code = 652) CALCIUM (BEAKER) 9.1 mg/dL 8.4-10.2 (test code = 697) EGFR (BEAKER) (test 80 mL/min/1.73 ESTIMA JAX GFR IS code = 1092) sq m NOT ACCURATE CREATININE CLEARANCE IN PREDICTING GLOMERULAR FILTRATION RATE . ESTIMATED GFR I S NOT APPLICABLE FOR DIALYSIS PATIEN TS. SARS-COV2/RT-PCR ([facility])2021-08-13 11:22:10 Test Item Value Reference Range Interpretation Comments SARS-COV2/RT-PCR (test Negative Not Detected, Negative, code = 6880294) See external report for linked test SARS-COV-[address] [facility] (test code = 4637904) Negative result for this test determines that SARS-CoV-2 RNA was not present in the specimen above the Limit of Detection (LOD). However, Negative results do not preclude SARS-CoV-2 infection and should not be used as the sole basis for treatment or patient management decisions. Negative results must be combined with clinical observations, patient history, and [...] limit of detection for this assay is 800 copies/mL.This SARS CoV-2 test is a real-time [...] justifying the authorization of the emergency use ofin vitro diagnostic tests for detection and/or diagnosis of COVID-19 is terminated under Section 564(b)(2) of the Act or the EUA is revoked under Section 564(g) of the Act.Fact Sheet for Healthcare Prov iders:https://www.[employer]/sites/default/files/product/documents/Fact_Sheet_HC _Tgebmusqa_Hhzx_AWWS-IqN-9.pdfFact Sheet for Healthcare Patients:https://www.[employer]/sites/default/files/product/docume nts/Pugc_Masjl_Ydczlwcm_Zrvi_SVHF-XqB-3.pdfPerforming Laboratory:[facility], [place] [id number] 06:39:24 Test Item Value Reference Range Interpretation Comments Potassium (test code = 3.5 meq/L 3.5-5.1 Speci men slightly 2823-3) hemolyzed Lab Interpretation (test Normal code = 42489-3) [facility]2021-[facility] 06:39:24 Test Item Value Reference Range Interpretation Comments POTASSIUM (BEAKER) 3.5 meq/L 3.5-5.1 Specimen slightly (test code = 379) hemolyzed RAD, SPINE, LUMBAR, 2 OR 3 [id number] 13:29:00Reason for exam:->L low back painShould this be performed at the bedside?->Yes [facility] 1970 Sex: MFINAL REPORT Radiograph of the lumbar spine frontal HISTORY: PainCOMPARISON: None available. FINDINGS:Bones:No acute displaced fracture. Osseous alignment is within normal limits. Joints:Scattered degenerative change. No osseous erosion. Soft tissues:The soft tissues appear unremarkable. IMPRESSION: Scattered degenerative change. No osseous erosion. Signed: Lisa Butler Verified Date/Time: 08/12/2021 13:29:01 Reading Location: [facility] Reading Room [address] [place] [address] RAD, HIP, 2-3 VIEWS, LEFT, TO INCL PELVIS WHEN PERFORMED 2021-08-12 13:22:00Reason for exam:->L hip painShould this be performed at the bedside?->Yes [facility] 1970 Sex: MFINAL REPORT Radiographs of the left hip HISTORY: PainCOMPARISON: None available. FINDINGS:Bones:No acute displaced fracture. Osseous alignment is within normal limits. Joints:Scattered degenerative change. No osseous erosion. Soft tissues:The soft tissues appear unremarkable. IMPRESSION: Scattered degenerative change. No osseous erosion. Signed: Lisa Butler MDReport Verified Date/Time: 08/12/2021 13:22:15 Reading Location: [facility] Reading Room [address] [place] [address] Electronically signedby: LISA BUTLER on 08/12/2021 01:22 PMVitamin D, 11-[id number] 08:20:13 Test Item Value Reference Range Interpretation Comments Vitamin D 25-Hydroxy 29.4 ng/mL 6.6-49.9 (test code = 1988-3) ELIZABETH (test code = ELIZABETH) Effective 05/24/2017: Reference Range ChangeNew: 6.6-49.9 ng/mL Previous: 13.0-47.8 ng/mL Recommended Vitamin D Target Range: 30.0-40.0 ng/mLOperator ID - PIAYA L Lab Interpretation (test Normal code = 09216-5) [facility] Center[facility]IT[facility]IN D, 66-[id number] 08:20:13 Test Item Value Reference Range Interpretation Comments VITAMIN D 25-OH (BEAKER) (test 29.4 ng/mL 6.6-49.9 code = 2764) Effective 05/24/2017: Reference Range ChangeNew: 6.6-49.9 ng/mL Previous: 13.0- 47.8 ng/mLRecommendedVitamin D Target Range: 30.0-40.0 ng/mLOperator ID - PIAYA LVitamin B12 and [id number] 06:06:11 Test Item Value Reference Range Interpretation Comments Vitamin B12 (test code 411 pg/mL 211-911 = 2132-9) Folate (test code = 14.93 ng/mL See_Comment [Automa jax 2284-8) message] The sy stem which generated this result transmitted reference range : >=5.40. The reference range was not used to interpret this result as normal/abnormal . Lab Interpretation Normal (test code = 51589-6) [facility] Center[facility]IT[facility] B12 AND [id number] 06:06:11 Test Item Value Reference Range Interpretation Comments VITAMIN B12 411 pg/mL 211-911 (BEAKER) (test code = 774) FOLATE (BEAKER) 14.93 ng/mL See_Comment [Automated message] (test code = 362) The system which generated this result transmitted ref erence range: >=5.40. The reference range was not used to interpr et this result as normal/abnormal . Comprehensive metabolic [id number] 06:02:36 Test Item Value Reference Range Interpretation Comments Protein, Total (test 6.3 See_Comment [Autom ated code = 2885-2) message] The system which generated this result transmitted reference range : 6.0 - 8.3 gm/dL . The reference r zaria was not used to interpret this result as normal/abnormal . Albumin (test code = 4.2 g/dL 3.5-5.0 93044-0) Alkaline Phosphatase 114 U/L 40-150 (test code = 6768-6) Total Bilirubin (test 0.3 mg/dL 0.2-1.2 code = 1974-2) Sodium (test code = 141 meq/L 613-234 5728-2) Potassium (test code = 3.3 meq/L 3.5-5.1 L 2823-3) Chloride (test code = 105 meq/L 98-107 2075-0) CO2 (test code = 29 meq/L 22-29 8-9) BUN (test code = 18 mg/dL 7-21 3094-0) Creatinine (test code = 1.05 mg/dL 0.57-1.25 2160-0) Glucose (test code = 104 mg/dL 70-105 2345-7) Calcium (test code = 9.2 mg/dL 8.4-10.2 07344-5) AST (test code = 24 U/L 5-34 1920-8) ALT (test code = 60 U/L 6-55 H 1742-6) EGFR (test code = 75 mL/min/1.73 [place] [address]-9) NOT ACCURATE CREATININE CLEARANCE IN PREDICTING GLOMERULAR FILTRATION RATE . ESTIMATED GFR I S NOT APPLICABLE FOR DIALYSIS PATIEN TS. Lab Interpretation Abnormal (test code = 59311-6) [facility] CenterCOMPREHENSIVE METABOLIC [id number] 06:02:36 Test Item Value Reference Range Interpretation Comments TOTAL PROTEIN 6.3 gm/dL 6.0-8.3 (BEAKER) (test code = 770) ALBUMIN (BEAKER) 4.2 g/dL 3.5-5.0 (test code = 1145) ALKALINE PHOSPHATASE 114 U/L 40-150 (BEAKER) (test code = 346) BILIRUBIN TOTAL 0.3 mg/dL 0.2-1.2 (BEAKER) (test code = 377) SODIUM (BEAKER) (test 141 meq/L 136-145 code = 381) POTASSIUM (BEAKER) 3.3 meq/L 3.5-5.1 L (test code = 379) CHLORIDE (BEAKER) 105 meq/L 98-107 (test code = 382) CO2 (BEAKER) (test 29 meq/L 22-29 code = 355) BLOOD UREA NITROGEN 18 mg/dL 7-21 (BEAKER) (test code = 354) CREATININE (BEAKER) 1.05 mg/dL 0.57-1.25 (test code = 358) GLUCOSE RANDOM 104 mg/dL 70-105 (BEAKER) (test code = 652) CALCIUM (BEAKER) 9.2 mg/dL 8.4-10.2 (test code = 697) AST (SGOT) (BEAKER) 24 U/L 5-34 (test code = 353) ALT (SGPT) (BEAKER) 60 U/L 6-55 H (test code = 347) EGFR (BEAKER) (test 75 mL/min/1.73 ESTIMA JAX GFR IS code = 1092) sq m NOT ACCURATE CREATININE CLEARANCE IN PREDICTING GLOMERULAR FILTRATION RATE . ESTIMATED GFR I S NOT APPLICABLE FOR DIALYSIS PATIEN TS. [id number] 06:00:21 Test Item Value Reference Range Interpretation Comments Magnesium (test code = 65121-4) 1.8 mg/dL 1.6-2.6 Lab Interpretation (test code = Normal 85475-6) [facility] CenterMAGN[facility]IUM2021-12-30 06:00:21 Test Item Value Reference Range Interpretation Comments MAGNESIUM (BEAKER) (test code = 1.8 mg/dL 1.6-2.6 627) CBC W/PLT COUNT & AUTO [id number] 05:27:56 Test Item Value Reference Range Interpretation Comments WHITE BLOOD CELL COUNT (BEAKER) 7.0 K/ L 3.5-10.5 (test code = 775) RED BLOOD CELL COUNT (BEAKER) 3.76 M/ L 4.63-6.08 L (test code = 761) HEMOGLOBIN (BEAKER) (test code = 10.8 GM/DL 13.7-17.5 L 410) HEMATOCRIT (BEAKER) (test code = 32.5 % 40.1-51.0 L 411) MEAN CORPUSCULAR VOLUME (BEAKER) 86.4 fL 79.0-92.2 (test code = 753) MEAN CORPUSCULAR HEMOGLOBIN 28.7 pg 25.7-32.2 (BEAKER) (test code = 751) MEAN CORPUSCULAR HEMOGLOBIN CONC 33.2 GM/DL 32.3-36.5 (BEAKER) (test code = 752) RED CELL DISTRIBUTION WIDTH 13.0 % 11.6-14.4 (BEAKER) (test code = 412) PLATELET COUNT (BEAKER) (test 294 K/CU MM 150-450 code = 756) MEAN PLATELET VOLUME (BEAKER) 9.7 fL 9.4-12.4 (test code = 754) NEUTROPHILS RELATIVE PERCENT 52 % (BEAKER) (test code = 429) LYMPHOCYTES RELATIVE PERCENT 39 % (BEAKER) (test code = 430) MONOCYTES RELATIVE PERCENT 7 % (BEAKER) (test code = 431) EOSINOPHILS RELATIVE PERCENT 2 % (BEAKER) (test code = 432) BASOPHILS RELATIVE PERCENT 1 % (BEAKER) (test code = 437) NEUTROPHILS ABSOLUTE COUNT 3.63 K/ L 1.78-5.38 (BEAKER) (test code = 670) LYMPHOCYTES ABSOLUTE COUNT 2.71 K/ L 1.32-3.57 (BEAKER) (test code = 414) MONOCYTES ABSOLUTE COUNT (BEAKER) 0.47 K/ L 0.30-0.82 (test code = 415) EOSINOPHILS ABSOLUTE COUNT 0.14 K/ L 0.04-0.54 (BEAKER) (test code = 416) BASOPHILS ABSOLUTE COUNT (BEAKER) 0.04 K/ L 0.01-0.08 (test code = 417) IMMATURE GRANULOCYTES-RELATIVE 1 % 0-1 PERCENT (BEAKER) (test code = 2801) Urinalysis w/Microscopic + Reflex to [id number] 23:28:23 Test Item Value Reference Range Interpretation Comments Color, UA (test code = Yellow 5778-6) Clarity, UA (test code = Clear 5767-9) Specific [place], UA 1.025 1.005-1.030 (test code = 5811-5) pH, UA (test code = 5.5 5.0-9.0 5803-2) Protein, UA (test code = Negative Negative 06866-9) Glucose, UA (test code = Negative Negative 365) Ketones, UA (test code = Negative Negative 2514-8) Bilirubin, UA (test code Negative Negative = 02253-7) Blood, UA (test code = Negative Negative 66981-1) Nitrite, UA (test code = Negative Negative 5802-4) Leukocytes, UA (test Small Negative A code = 5799-2) Urobilinogen, UA (test 0.2 mg/dL 0.2-1.0 code = 85654-5) Bacteria, UA (test code Few = 43456-8) RBC, UA (test code = <5 See_Comment [Autom ated message] 799-7) The system Traxer generated this result transmit jax reference range : /HPF. The refer ence range was not u sed to interpret th is result as normal/abnormal . WBC, UA (test code = 5-10 See_Comment [Autom ated message] 00211-7) The system Traxer generated this result transmit jax reference range : /HPF. The refer ence range was not u sed to interpret th is result as normal/abnormal . SQUAMOUS EPITHELIAL <5 See_Comment [Automa jax message] (test code = 63416-5) The sy stem which generated this result transmit jax reference range : /HPF. The refer ence range was not u sed to interpret th is result as normal/abnormal . Specimen Source (test code = 2795) Lab Interpretation (test Abnormal code = 97924-9) [facility] REFLEX URINE [id number] 23:28:23 Test Item Value Reference Range Interpretation Comments COLOR (BEAKER) (test code = 470) Yellow CLARITY (BEAKER) (test code = 469) Clear SPECIFIC GRAVITY UA (BEAKER) (test 1.025 1.005-1.030 code = 468) PH UA (BEAKER) (test code = 467) 5.5 5.0-9.0 PROTEIN UA (BEAKER) (test code = Negative Negative 464) GLUCOSE UA (BEAKER) (test code = Negative Negative 365) KETONES UA (BEAKER) (test code = Negative Negative 371) BILIRUBIN UA (BEAKER) (test code = Negative Negative 462) BLOOD UA (BEAKER) (test code = 461) Negative Negative NITRITE UA (BEAKER) (test code = Negative Negative 465) LEUKOCYTE ESTERASE UA (BEAKER) Small Negative A (test code = 466) UROBILINOGEN UA (BEAKER) (test code 0.2 mg/dL 0.2-1.0 = 463) BACTERIA (BEAKER) (test code = 517) Few RBC UA-MANUAL (BEAKER) (test code = <5 /HPF 1659) WBC UA-MANUAL (BEAKER) (test code = 5-10 /HPF 1661) SQUAMOUS EPITHELIAL MANUAL (BEAKER) <5 /HPF (test code = 1663) SOURCE(BEAKER) (test code = 8055) COMPREHENSIVE METABOLIC [id number] 06:31:58 Test Item Value Reference Range Interpretation Comments TOTAL PROTEIN 7.1 gm/dL 6.0-8.3 (BEAKER) (test code = 770) ALBUMIN (BEAKER) 3.8 g/dL 3.5-5.0 (test code = 1145) ALKALINE PHOSPHATASE 141 U/L 40-150 (BEAKER) (test code = 346) BILIRUBIN TOTAL 0.3 mg/dL 0.2-1.2 (BEAKER) (test code = 377) SODIUM (BEAKER) (test 139 meq/L 136-145 code = 381) POTASSIUM (BEAKER) 3.3 meq/L 3.5-5.1 L (test code = 379) CHLORIDE (BEAKER) 104 meq/L 98-107 (test code = 382) CO2 (BEAKER) (test 25 meq/L 22-29 code = 355) BLOOD UREA NITROGEN 15 mg/dL 7-21 (BEAKER) (test code = 354) CREATININE (BEAKER) 0.90 mg/dL 0.57-1.25 (test code = 358) GLUCOSE RANDOM 101 mg/dL 70-105 (BEAKER) (test code = 652) CALCIUM (BEAKER) 9.6 mg/dL 8.4-10.2 (test code = 697) AST (SGOT) (BEAKER) 22 U/L 5-34 (test code = 353) ALT (SGPT) (BEAKER) 72 U/L 6-55 H (test code = 347) EGFR (BEAKER) (test 90 mL/min/1.73 ESTIMA JAX GFR IS code = 1092) sq m NOT ACCURATE CREATININE CLEARANCE IN PREDICTING GLOMERULAR FILTRATION RATE . ESTIMATED GFR I S NOT APPLICABLE FOR DIALYSIS PATIEN TS. Personal Financial Planner ID - DBCBC (Hemogram only)2021-08-09 05:42:01 Test Item Value Reference Range Interpretation Comments WBC (test code = 6690-2) 7.1 See_Comment [A utomated message] The system Traxer generated this result transmitted ref erence range: 3.5 - 10 .5 K/L. The refe rence range was not u sed to interpret this result as normal/abnor mal. RBC (test code = 789-8) 3.93 See_Comment L [Au tomated message] The system Traxer generated this result transmitted ref erence range: 4.63 - 6 .08 M/L. The refe rence range was not u sed to interpret this result as normal/abnor mal. MCHC (test code = 786-4) 34.1 See_Comment L [A utomated message] The system Traxer generated this result transmitted ref erence range: 32.3 - 3 6.5 GM/DL. The refe rence range was not u sed to interpret this result as normal/abnor mal. Hematocrit (test code = 33.1 % 40.1-51.0 L 4544-3) MCV (test code = 787-2) 84.2 fL 79.0-92.2 MCH (test code = 785-6) 28.8 pg 25.7-32.2 RDW (test code = 788-0) 13.1 % 11.6-14.4 Platelets (test code = 288 See_Comment [Aut omated message] 777-3) The system Traxer generated this result transmitted ref erence range: 150 - 45 0 K/CU MM. The referen ce range was not u sed to interpret this result as normal/abnor mal. MPV (test code = 9.7 fL 9.4-12.4 97120-9) nRBC (test code = 413) 0 See_Comment [Aut omated message] The system Traxer generated this result transmitted ref erence range: 0 - 0 /1 00 WBC. The refere nce range was not u sed to interpret this result as normal/abnor mal. Lab Interpretation (test Abnormal code = 59047-6) [facility] (HEMOGRAM ONLY)2021-08-09 05:42:01 Test Item Value Reference Range Interpretation Comments WHITE BLOOD CELL COUNT (BEAKER) 7.1 K/ L 3.5-10.5 (test code = 775) RED BLOOD CELL COUNT (BEAKER) 3.93 M/ L 4.63-6.08 L (test code = 761) HEMOGLOBIN (BEAKER) (test code = 11.3 GM/DL 13.7-17.5 L 410) HEMATOCRIT (BEAKER) (test code = 33.1 % 40.1-51.0 L 411) MEAN CORPUSCULAR VOLUME (BEAKER) 84.2 fL 79.0-92.2 (test code = 753) MEAN CORPUSCULAR HEMOGLOBIN 28.8 pg 25.7-32.2 (BEAKER) (test code = 751) MEAN CORPUSCULAR HEMOGLOBIN CONC 34.1 GM/DL 32.3-36.5 (BEAKER) (test code = 752) RED CELL DISTRIBUTION WIDTH 13.1 % 11.6-14.4 (BEAKER) (test code = 412) PLATELET COUNT (BEAKER) (test 288 K/CU MM 150-450 code = 756) MEAN PLATELET VOLUME (BEAKER) 9.7 fL 9.4-12.4 (test code = 754) NUCLEATED RED BLOOD CELLS 0 /100 WBC 0-0 (BEAKER) (test code = 413) COMPREHENSIVE METABOLIC [id number] 06:22:52 Test Item Value Reference Range Interpretation Comments TOTAL PROTEIN 6.9 gm/dL 6.0-8.3 (BEAKER) (test code = 770) ALBUMIN (BEAKER) 3.7 g/dL 3.5-5.0 (test code = 1145) ALKALINE PHOSPHATASE 169 U/L 40-150 H (BEAKER) (test code = 346) BILIRUBIN TOTAL 0.5 mg/dL 0.2-1.2 (BEAKER) (test code = 377) SODIUM (BEAKER) (test 140 meq/L 136-145 code = 381) POTASSIUM (BEAKER) 3.2 meq/L 3.5-5.1 L (test code = 379) CHLORIDE (BEAKER) 105 meq/L 98-107 (test code = 382) CO2 (BEAKER) (test 24 meq/L 22-29 code = 355) BLOOD UREA NITROGEN 16 mg/dL 7-21 (BEAKER) (test code = 354) CREATININE (BEAKER) 0.88 mg/dL 0.57-1.25 (test code = 358) GLUCOSE RANDOM 92 mg/dL 70-105 (BEAKER) (test code = 652) CALCIUM (BEAKER) 9.2 mg/dL 8.4-10.2 (test code = 697) AST (SGOT) (BEAKER) 31 U/L 5-34 (test code = 353) ALT (SGPT) (BEAKER) 122 U/L 6-55 H (test code = 347) EGFR (BEAKER) (test 92 mL/min/1.73 ESTIMA JAX GFR IS code = 1092) sq m NOT ACCURATE CREATININE CLEARANCE IN PREDICTING GLOMERULAR FILTRATION RATE . ESTIMATED GFR I S NOT APPLICABLE FOR DIALYSIS PATIEN TS. Personal Financial Planner ID - MISAEL WCBC (HEMOGRAM ONLY)2021-08-07 05:01:42 Test Item Value Reference Range Interpretation Comments WHITE BLOOD CELL COUNT (BEAKER) 6.4 K/ L 3.5-10.5 (test code = 775) RED BLOOD CELL COUNT (BEAKER) 4.03 M/ L 4.63-6.08 L (test code = 761) HEMOGLOBIN (BEAKER) (test code = 11.2 GM/DL 13.7-17.5 L 410) HEMATOCRIT (BEAKER) (test code = 33.8 % 40.1-51.0 L 411) MEAN CORPUSCULAR VOLUME (BEAKER) 83.9 fL 79.0-92.2 (test code = 753) MEAN CORPUSCULAR HEMOGLOBIN 27.8 pg 25.7-32.2 (BEAKER) (test code = 751) MEAN CORPUSCULAR HEMOGLOBIN CONC 33.1 GM/DL 32.3-36.5 (BEAKER) (test code = 752) RED CELL DISTRIBUTION WIDTH 13.4 % 11.6-14.4 (BEAKER) (test code = 412) PLATELET COUNT (BEAKER) (test 244 K/CU MM 150-450 code = 756) MEAN PLATELET VOLUME (BEAKER) 9.7 fL 9.4-12.4 (test code = 754) NUCLEATED RED BLOOD CELLS 0 /100 WBC 0-0 (BEAKER) (test code = 413) Hepatic function [id number] 05:32:12 Test Item Value Reference Range Interpretation Comments Protein, Total (test 7.1 See_Comment [Autom ated code = 2885-2) message] The system which generated this result transmit jax reference range : 6.0 - 8.3 gm/dL . The reference range was not u sed to interpret th is result as normal/abnormal . Albumin (test code = 3.7 g/dL 3.5-5.0 00693-1) Total Bilirubin (test 0.4 mg/dL 0.2-1.2 code = 1975-2) Bilirubin, Direct 0.2 mg/dL 0.1-0.5 (test code = 1968-7) Alkaline Phosphatase 208 U/L 40-150 H (test code = 6768-6) AST (test code = 51 U/L 5-34 H 1920-8) ALT (test code = 172 U/L 6-55 H 1742-6) ELIZABETH (test code = ELIZABETH) Personal Financial Planner ID - PIAYA L Lab Interpretation Abnormal (test code = 50435-7) [facility] 05:32:12 Test Item Value Reference Range Interpretation Comments Phosphorus (test code = 3.2 mg/dL 2.3-4.7 2777-1) ELIZABETH (test code = ELIZABETH) Personal Financial Planner ID - PIAYA L Lab Interpretation (test Normal code = 08171-4) [facility]2021-[facility]-24 05:32:12 Test Item Value Reference Range Interpretation Comments PHOSPHORUS (BEAKER) (test code = 3.2 mg/dL 2.3-4.7 604) Personal Financial Planner CM CEBALLOS LHEPATIC FUNCTION [id number] 05:32:12 Test Item Value Reference Range Interpretation Comments TOTAL PROTEIN (BEAKER) (test code = 7.1 gm/dL 6.0-8.3 770) ALBUMIN (BEAKER) (test code = 1145) 3.7 g/dL 3.5-5.0 BILIRUBIN TOTAL (BEAKER) (test code 0.4 mg/dL 0.2-1.2 = 377) BILIRUBIN DIRECT (BEAKER) (test 0.2 mg/dL 0.1-0.5 code = 706) ALKALINE PHOSPHATASE (BEAKER) (test 208 U/L 40-150 H code = 346) AST (SGOT) (BEAKER) (test code = 51 U/L 5-34 H 353) ALT (SGPT) (BEAKER) (test code = 172 U/L 6-55 H 347) Personal Financial Planner ID - LIN LBASIC METABOLIC [id number] 05:32:11 Test Item Value Reference Range Interpretation Comments SODIUM (BEAKER) 141 meq/L 136-145 (test code = 381) POTASSIUM (BEAKER) 3.2 meq/L 3.5-5.1 L (test code = 379) CHLORIDE (BEAKER) 105 meq/L 98-107 (test code = 382) CO2 (BEAKER) (test 25 meq/L 22-29 code = 355) BLOOD UREA NITROGEN 31 mg/dL 7-21 H (BEAKER) (test code = 354) CREATININE (BEAKER) 1.16 mg/dL 0.57-1.25 (test code = 358) GLUCOSE RANDOM 109 mg/dL 70-105 H (BEAKER) (test code = 652) CALCIUM (BEAKER) 9.3 mg/dL 8.4-10.2 (test code = 697) EGFR (BEAKER) (test 67 mL/min/1.73 ESTIMA JAX GFR IS code = 1092) sq m NOT ACCURATE CREATININE CLEARANCE IN PREDICTING GLOMERULAR FILTRATION RATE . ESTIMATED GFR I S NOT APPLICABLE FOR DIALYSIS PATIEN TS. Personal Financial Planner ID - LIN [id number] 05:32:11 Test Item Value Reference Range Interpretation Comments MAGNESIUM (BEAKER) (test code = 2.0 mg/dL 1.6-2.6 627) Personal Financial Planner ID - LIN LCBC W/PLT COUNT & AUTO [id number] 04:33:26 Test Item Value Reference Range Interpretation Comments WHITE BLOOD CELL COUNT (BEAKER) 11.7 K/ L 3.5-10.5 H (test code = 775) RED BLOOD CELL COUNT (BEAKER) 4.03 M/ L 4.63-6.08 L (test code = 761) HEMOGLOBIN (BEAKER) (test code = 11.4 GM/DL 13.7-17.5 L 410) HEMATOCRIT (BEAKER) (test code = 33.9 % 40.1-51.0 L 411) MEAN CORPUSCULAR VOLUME (BEAKER) 84.1 fL 79.0-92.2 (test code = 753) MEAN CORPUSCULAR HEMOGLOBIN 28.3 pg 25.7-32.2 (BEAKER) (test code = 751) MEAN CORPUSCULAR HEMOGLOBIN CONC 33.6 GM/DL 32.3-36.5 (BEAKER) (test code = 752) RED CELL DISTRIBUTION WIDTH 13.1 % 11.6-14.4 (BEAKER) (test code = 412) PLATELET COUNT (BEAKER) (test 281 K/CU MM 150-450 code = 756) MEAN PLATELET VOLUME (BEAKER) 9.5 fL 9.4-12.4 (test code = 754) NUCLEATED RED BLOOD CELLS 0 /100 WBC 0-0 (BEAKER) (test code = 413) NEUTROPHILS RELATIVE PERCENT 66 % (BEAKER) (test code = 429) LYMPHOCYTES RELATIVE PERCENT 26 % (BEAKER) (test code = 430) MONOCYTES RELATIVE PERCENT 7 % (BEAKER) (test code = 431) EOSINOPHILS RELATIVE PERCENT 0 % (BEAKER) (test code = 432) BASOPHILS RELATIVE PERCENT 0 % (BEAKER) (test code = 437) NEUTROPHILS ABSOLUTE COUNT 7.76 K/ L 1.78-5.38 H (BEAKER) (test code = 670) LYMPHOCYTES ABSOLUTE COUNT 2.98 K/ L 1.32-3.57 (BEAKER) (test code = 414) MONOCYTES ABSOLUTE COUNT (BEAKER) 0.86 K/ L 0.30-0.82 H (test code = 415) EOSINOPHILS ABSOLUTE COUNT 0.01 K/ L 0.04-0.54 L (BEAKER) (test code = 416) BASOPHILS ABSOLUTE COUNT (BEAKER) 0.03 K/ L 0.01-0.08 (test code = 417) IMMATURE GRANULOCYTES-RELATIVE 1 % 0-1 PERCENT (BEAKER) (test code = 2801) SARS-COV2/RT-PCR ([facility])2021-08-06 02:44:04 Test Item Value Reference Range Interpretation Comments SARS-COV2/RT-PCR (test code = Negative Negative 2502430) Negative result for this test determines that SARS-CoV-2 RNA was not present in the specimen above the Limit of Detection (LOD). However, Negative results do not preclude SARS-CoV-2 infection and should not be used as the sole basis for treatment or patient management decisions. Negative results must be combined with clinical observations, patient history, and epidemiological information. A false negative result may occur if a specimen is improperly collected, transported, or handled. A false negative result should be considered if patient's recent exposures or clinical presentation indicate that COVID-19 (SARS-CoV-2) is likely and diagnostic tests for other causes of illness are negative. Re-testing should be considered in cases of suspected false negatives.The limit of detection for this assay is 100 copies/mL.This SARS-CoV-2 test is a real-time RT_PCR test intended for the qualitative detection of [...] 564(g) of the Act.Testing was performed using [employer] SARS-CoV-2 assay.Fact Sheet for Healthcare Providers:https://www.molecular.qureshi/umberto/RT SARS-CoV-2 HCP Fact Sheet 51- 163945.pdfFact Sheet for Healthcare Patients:https://www.DDVTECH.qureshi/umberto/RT SARS-CoV-2 Patient Fact Sheet EN 51-013001H0.pdfUrinalysis w/Microscopic 2021-08-05 18:45:59 Test Item Value Reference Range Interpretation Comments Color, UA (test code Yellow = 5778-6) Clarity, UA (test Clear code = 5767-9) Specific [place], UA 1.022 1.001-1.035 (test code = 5811-5) pH, UA (test code = 5.5 5.0-8.0 5803-2) Protein, UA (test 10 mg/dL Negative A code = 39299-8) Glucose, UA (test Negative Negative code = 365) Ketones, UA (test 10 mg/dL Negative A code = 2514-8) Bilirubin, UA (test Negative Negative code = 19625-8) Blood, UA (test code Negative Negative = 91457-8) Nitrite, UA (test Positive Negative A code = 5802-4) Leukocytes, UA (test Small Negative A code = 5799-2) Urobilinogen, UA 3.0 mg/dL 0.2-1.0 H (test code = 22123-0) RBC, UA (test code = 1 See_Comment [Autom ated 07193-9) message] The system which generated this result transmit jax reference range : /HPF. The reference range was not used to interpret this result as normal/abnormal . WBC, UA (test code = 5 See_Comment [Autom ated 5821-4) message] The system which generated this result transmit jax reference range : /HPF. The reference range was not used to interpret this result as normal/abnormal . Bacteria, UA (test Many code = 51887-6) Mucus (test code = Rare 8247-9) Crystals, Urine (test None Seen code = 97731-9) Amorphous Crystals Rare (test code = 18778-1) Specimen Source (test code = 2795) ELIZABETH (test code = ELIZABETH) Personal Financial Planner ID - [auto]Personal Financial Planner ID - tech Lab Interpretation Abnormal (test code = 71337-2) [facility] [id number] 18:45:59 Test Item Value Reference Range Interpretation Comments COLOR (BEAKER) (test code = 470) Yellow CLARITY (BEAKER) (test code = 469) Clear SPECIFIC GRAVITY UA (BEAKER) (test 1.022 1.001-1.035 code = 468) PH UA (BEAKER) (test code = 467) 5.5 5.0-8.0 PROTEIN UA (BEAKER) (test code = 10 mg/dL Negative A 464) GLUCOSE UA (BEAKER) (test code = Negative Negative 365) KETONES UA (BEAKER) (test code = 10 mg/dL Negative A 371) BILIRUBIN UA (BEAKER) (test code = Negative Negative 462) BLOOD UA (BEAKER) (test code = 461) Negative Negative NITRITE UA (BEAKER) (test code = Positive Negative A 465) LEUKOCYTE ESTERASE UA (BEAKER) Small Negative A (test code = 466) UROBILINOGEN UA (BEAKER) (test code 3.0 mg/dL 0.2-1.0 H = 463) RBC UA (BEAKER) (test code = 519) 1 /HPF WBC UA (BEAKER) (test code = 520) 5 /HPF BACTERIA (BEAKER) (test code = 517) Many MUCUS (BEAKER) (test code = 1574) Rare CRYSTALS, URINE (BEAKER) (test code None Seen = 1521) AMORPHOUS CRYSTALS (BEAKER) (test Rare code = 1584) SOURCE(BEAKER) (test code = 2795) Personal Financial Planner ID - [auto]Personal Financial Planner ID - techHepatitis panel, [id number] 10:50:35 Test Item Value Reference Range Interpretation Comments Hep A IgM (test code = Nonreactive Nonreactive 77776-6)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 view of the chest. IMPRESSION: Support Lines: Stable feeding tube. Lungs and pleura: Hypoinflated lungs with interval decreased congestion. No consolidation or effusion. No pneumothorax.Heart and mediastinum: Stable contours.Additional findings: None. Signed: Tiny [place] Verified Date/Time: 02/19/2021 06:04:05 Electronicallysigned by: TINY WHITING MD on 02/19/2021 06:04 AMBASIC METABOLIC [id number] 05:04:00 Test Item Value Reference Range Interpretation [...] 697) EGFR (BEAKER) (test 50 mL/min/1.73 ESTIMA JAX GFR IS code = 1092) sq m NOT ACCURATE CREATININE CLEARANCE IN PREDICTING GLOMERULAR FILTRATION RATE . ESTIMATED GFR I S NOT APPLICABLE FOR DIALYSIS PATIEN TS. Personal Financial Planner ID - [id number] 05:04:00 Test Item Value Reference Range Interpretation Comments MAGNESIUM (BEAKER) (test code = 2.2 mg/dL 1.6-2.6 627) Personal Financial Planner ID - [id number] 05:04:00 Test Item Value Reference Range Interpretation Comments PHOSPHORUS (BEAKER) (test code = 4.9 mg/dL 2.3-4.7 H 604) Personal Financial Planner ID - ADMINBLOOD GAS, [id number] 04:20:00 Test Item Value Reference Range Interpretation [...] = 1818) CBC W/PLT COUNT & AUTO [id number] 04:19:00 Test Item Value Reference Range Interpretation [...] PERCENT (BEAKER) (test code = 2801) POCT-GLUCOSE [id number] 23:39:00 Test Item Value Reference Range Interpretation Comments POC-GLUCOSE METER 111 mg/dL 70-110 H : TESTED A T [facility] 6720 (BEAKER) (test code = [facility], 1538) [address]: Personal Financial Planner/Techni anne-marie ID = [id number] for LE IJA, AURA VANCOMYCIN LEVEL, [id number] 22:27:00 Test Item Value Reference Range Interpretation Comments VANCOMYCIN TROUGH (BEAKER) (test 18.3 ug/mL 10.0-20.0 code = 522) Personal Financial Planner ID - EMERSONB-TYPE NATRIURETIC FACTOR (BNP)2021-02-18 19:14:00 Test Item Value Reference Range Interpretation Comments B-TYPE NATRIURETIC PEPTIDE (BEAKER) 49 pg/mL 0-100 (test code = 700) Personal Financial Planner ID - EMERSONPOCT-GLUCOSE [id number] 16:14:00 Test Item Value Reference Range Interpretation Comments POC-GLUCOSE METER 109 mg/dL 70-110 : TESTED A T [facility] 6720 (BEAKER) (test code = [facility], 153) [address]: Personal Financial Planner/Techni anne-marie ID = [id number] for St [place], Colleen B-TYPE NATRIURETIC FACTOR (BNP)2021-02-18 13:12:00 Test Item Value Reference Range Interpretation Comments B-TYPE NATRIURETIC PEPTIDE (BEAKER) 52 pg/mL 0-100 (test code = 700) Personal Financial Planner ID - DAPHNE CPOCT-GLUCOSE [id number] 12:13:00 Test Item Value Reference Range Interpretation Comments POC-GLUCOSE METER 97 mg/dL 70-110 : TESTED A T [facility] 6720 (BEAKER) (test code = [facility], 1538) [address]: Personal Financial Planner/Techni anne-marie ID = [id number] for Step toe, Colleen POCT-GLUCOSE [id number] 05:40:00 Test Item Value Reference Range Interpretation Comments POC-GLUCOSE METER 112 mg/dL 70-110 H : TESTED A T [facility] 6720 (BEAKER) (test code = [facility], 1538) [address]: Personal Financial Planner/Techni anne-marie ID = [id number] for LE IJA, AURA SARS-COV2/RT-PCR ([facility])2021-02-18 04:06:00 Test Item Value Reference Range Interpretation Comments SARS-COV2/RT-PCR (test Negative Not Detected, Negative, code = 7581955) See external report for linked test SARS-COV-[address] [facility] ROBYN (test code = 3043631) Negative result for this test determines that SARS-CoV-2 RNA was not present in the specimen above the Limit of Detection (LOD). However, Negative results do not preclude SARS-CoV-2 infection and should not be used as the sole basis for treatment or patient management decisions. Negative results must be combined with clinical observations, patient history, and [...] justifying the authorization of the emergency use ofin vitro diagnostic tests for detection and/or diagnosis of COVID-19 is terminated under Section 564(b)(2) of the Act or the EUA is revoked under Section 564(g) of the Act.Testing was performed using the Qureshi SARS-CoV-2 assay.Fact Sheet for Healthcare Providers:https://www.DDVTECH.qureshi/umberto/RT_SAR M-ViJ-1_WRR_Sgye_Yimwb_20-621579.pdfFact Sheet for Healthcare Patients:https://www.molecular.qureshi/s al/AS_PBJT-QnZ-0_Zfztema_Nazf_Rimmb_JL_49-670340M7.pdfPerforming Laboratory:[facility] [place] [address] [id number] 03:51:00 Test Item Value Reference Range Interpretation Comments MAGNESIUM (BEAKER) 2.4 mg/dL 1.6-2.6 Specimen slightly (test code = 627) hemolyzed Personal Financial Planner ID - LIN [id number] 03:51:00 Test Item Value Reference Range Interpretation Comments PHOSPHORUS (BEAKER) 4.0 mg/dL 2.3-4.7 Specimen slightly (test code = 604) hemolyzed Personal Financial Planner ID - PIDEYANIRA LBASIC METABOLIC [id number] 03:51:00 Test Item Value Reference Range Interpretation [...] 697) EGFR (BEAKER) (test 50 mL/min/1.73 ESTIMA JAX GFR IS code = 1092) sq m NOT ACCURATE CREATININE CLEARANCE IN PREDICTING GLOMERULAR FILTRATION RATE . ESTIMATED GFR I S NOT APPLICABLE FOR DIALYSIS PATIEN TS. Personal Financial Planner ID - MOUNIKAAYA LCBC W/PLT COUNT & AUTO [id number] 03:29:00 Test Item Value Reference Range Interpretation [...] (BEAKER) (test code = 2801) BLOOD GAS, [id number] 03:28:00 Test Item Value Reference Range Interpretation [...] (BEAKER) (test code = 1819) 40.0 POCT-GLUCOSE [id number] 23:40:00 Test Item Value Reference Range Interpretation Comments POC-GLUCOSE METER 97 mg/dL 70-110 : TESTED A T [facility] 6720 (BEAKER) (test code = [facility] [place], 1538) [address]: Personal Financial Planner/Techni anne-marie ID = [id number] for JULIA Deras KAR RAD, CHEST, 1 VIEW, NON [id number] 19:07:00Reason for exam:->Shortness of BreathShould this be performed at the bedside?->Yes [facility] 1970 Sex: MFINAL REPORT History: Shortness of breath. FINDINGS: Compared with earlier film the same date, the heart and mediastinum are stable. As before, the heart is mildly enlarged. Mild increased pulmonary vascularity is present without overt edema. No large pleural effusions. No pneumothorax. Lung volumes remain low. Bones are unremarkable. IMPRESSION: 1. Stable chest. Signed: Judith Lara Verified Date/Time: 02/17/2021 19:07:03 Reading Location: [facility] POCT-GLUCOSE [id number] 18:09:00 Test Item Value Reference Range Interpretation Comments POC-GLUCOSE METER 110 mg/dL 70-110 : TESTED A T [facility] 6720 (BEAKER) (test code = [facility] [place], 1538) [address]: Personal Financial Planner/Techni anne-marie ID = [id number] for Sharon Colón BLOOD GAS, [id number] 17:53:00 Test Item Value Reference Range Interpretation [...] 40.0 CT BRAIN WITHOUT IV CONTRAST - [id number] 17:43:00Unlisted Reason for Exam - Click Yes and Enter Reason Below->No [facility] : 1970 Sex: MFINAL REPORT CT BRAIN WITHOUT IV CONTRAST - PORTABLE INDICATION: Altered mental status TECHNIQUE: Noncontrast axial imaging was [...] the right basal ganglia is slightly decreased in size, similar topreoperative surrounding edema and mass effect. No new [...] exam. Right basal ganglia parenchymal hematoma is similarto slightly decreased in size. No significant change in mass effect. Signed: Trupti Viramontes MDReportVerified Date/Time: 02/17/2021 17:43:19 -GLUCOSE [id number] 12:08:00 Test Item Value Reference Range Interpretation Comments POC-GLUCOSE METER 141 mg/dL 70-110 H : TESTED A T [facility] 6720 ([employer]) (test code = [facility], 1538) [address]: Personal Financial Planner/Techni anne-marie ID = [id number] for [facility] Sharon [id number] 12:02:00 Test Item Value Reference Range Interpretation Comments PROCALCITONIN (LupatechAKER) (test code 1.00 ng/mL <0.05 H = 3036) SEPSIS RISK (ng/mL)Low: 0.05-0.50Intermediate: 0.51-2.00High: >=2.01LACTIC ACID, [id number] 11:31:00 Test Item Value Reference Range Interpretation Comments LACTATE BLOOD VENOUS 1.26 mmol/L 0.50-2.20 Specime n moderately (2) (BEAKER) (test hemolyzed code = 2872) Personal Financial Planner ID - BO, CHEST, 1 VIEW, NON [id number] 08:26:00Reason for exam:->pulmonary edema follow-upShould this be performed at the bedside?->[facility] : 1970 Sex: MFINAL REPORT CLINICAL HISTORY: pulmonary edema follow-up TECHNIQUE: 1 view of the chest. COMPARISON: 02/16/2021 IMPRESSION: A feeding tube is again seen. Bilateral airspace opacities are grossly unchanged. Subpulmonic pleural effusions cannot be excluded. The cardiomediastinal silhouette is magnified by technique. Signed: Lenka Otto MDRepbarnes-j[facility]ish [facility] Verified Date/Time: 02/17/2021 08:26:43 Reading Location: [facility] Radiology Reading Room Electronically signed by: LENKA OTTO M.D.on 02/17/2021 08:26 AMPOCT-GLUCOSE METER 2021-02-17 06:32:00 Test Item Value Reference Range Interpretation Comments POC-GLUCOSE METER 114 mg/dL 70-110 H : TESTED A T [facility] 6720 (BEAKER) (test code = [facility], 1538) [address]: Personal Financial Planner/Techni anne-marie ID = [id number] for Olimpia Sy BASIC METABOLIC [id number] 04:18:00 Test Item Value Reference Range Interpretation Comments SODIUM (BEAKER) 141 meq/L 136-145 (test code = 381) [...] 697) EGFR (BEAKER) (test 77 mL/min/1.73 ESTIMA JAX GFR IS code = 1092) sq m NOT ACCURATE CREATININE CLEARANCE IN PREDICTING GLOMERULAR FILTRATION RATE . ESTIMATED GFR I S NOT APPLICABLE FOR DIALYSIS PATIEN TS. Personal Financial Planner ID - MISAEL [id number] 04:18:00 Test Item Value Reference Range Interpretation Comments MAGNESIUM (BEAKER) (test code = 2.2 mg/dL 1.6-2.6 627) Personal Financial Planner ID - MISAEL [id number] 04:18:00 Test Item Value Reference Range Interpretation Comments PHOSPHORUS (BEAKER) (test code = 2.5 mg/dL 2.3-4.7 604) Personal Financial Planner ID Lucas DOUGLAS WB-TYPE NATRIURETIC FACTOR (BNP)2021-02-17 03:30:00 Test Item Value Reference Range Interpretation Comments B-TYPE NATRIURETIC PEPTIDE (BEAKER) 125 pg/mL 0-100 H (test code = 700) Personal Financial Planner ID Lucas CEBALLOS LCBC W/PLT COUNT & AUTO [id number] 02:56:00 Test Item Value Reference Range Interpretation [...] (BEAKER) (test code = 2801) BLOOD GAS, [id number] 02:45:00 Test Item Value Reference Range Interpretation [...] (BEAKER) (test code = 1819) 40.0 POCT-GLUCOSE [id number] 00:04:00 Test Item Value Reference Range Interpretation Comments POC-GLUCOSE METER 116 mg/dL 70-110 H : TESTED A T [facility] 6720 (BEAKER) (test code = [facility], 1538) 87472: Personal Financial Planner/Techni anne-marie ID = [id number] for Olimpia Sy POCT-GLUCOSE [id number] 17:32:00 Test Item Value Reference Range Interpretation Comments POC-GLUCOSE METER 121 mg/dL 70-110 H : TESTED A T [facility] 6720 (BEAKER) (test code = [facility], 1538) [address]: Personal Financial Planner/Techni anne-marie ID = [id number] for Pa susan (pca2), Doretha POCT-GLUCOSE [id number] 12:15:00 Test Item Value Reference Range Interpretation Comments POC-GLUCOSE METER 128 mg/dL 70-110 H : TESTED A T [facility] 6720 (BEAKER) (test code = [facility], 1538) 9[address]: Personal Financial Planner/Techni anne-marie ID = [id number] for Pa susan (pca2), Doretha RAD, ABDOMEN/KUB, 1 VIEW [id number] 10:44:00Reason for exam:->Corpak repositioned. Reassess placement [facility] : 1970 Sex: MFINAL REPORT CLINICAL HISTORY: Corpak repositioned. Reassess placement TECHNIQUE: Supine abdomen COMPARISON: 02/16/2021 IMPRESSION: The feeding tube has been advanced more distally in the stomach.The bowel gas pattern is nonspecific. Free air and air-fluid levels are not definitively seen, but also cannot be excluded on the supine view. Signed: Lenka Otto Verified Date/Time: 02/16/2021 10:44:06 Reading Location: [facility] Radiology Reading Room RAD, CHEST, 1 VIEW, NON [id number] 08:39:00Reason for exam:->fever, leukocytosisShould this be performed at the bedside?->Yes [facility] : 1970 Sex: MFINAL REPORT CLINICAL HISTORY: fever, leukocytosis TECHNIQUE: 1 view of the chest.COMPARISON: 02/14/2021 IMPRESSION: A feeding tube is again seen. The NGT has been removed. Diffuse bilateral airspace opacities and small pleural effusions are similar. The cardiomediastinal silhouette is magnified by technique. Signed: Lenka Otto Verified Date/Time: 02/16/2021 08:39:54 Reading Location: [facility] Radiology Reading Room RAD, ABDOMEN/KUB, 1 VIEW [id number] 08:37:00Reason for exam:->replaced Corpak, assess placement [facility] : 1970 Sex: MFINAL REPORT CLINICAL HISTORY: replaced Corpak, assess placement TECHNIQUE: Supineabdomen IMPRESSION: The tip of the feeding tube is in the upper stomach with advancement recommended. The partially visualized bowel gas pattern is nonspecific. Signed: Lenka Otto MDReport Verified Date/Time: 02/16/2021 08:37:33 Reading Location: [facility] Radiology Reading Room POCT- GLUCOSE [id number] 06:11:00 Test Item Value Reference Range Interpretation Comments POC-GLUCOSE METER 121 mg/dL 70-110 H : TESTED A T [facility] 6720 (BEAKER) (test code = [facility], 1538) [address]: Personal Financial Planner/Techni anne-marie ID = [id number] for KAR IBRAHIM B-TYPE NATRIURETIC FACTOR (BNP)2021-02-16 03:30:00 Test Item Value Reference Range Interpretation Comments B-TYPE NATRIURETIC PEPTIDE (BEAKER) 178 pg/mL 0-100 H (test code = 700) Personal Financial Planner ID - JENY [id number] 03:23:00 Test Item Value Reference Range Interpretation Comments MAGNESIUM (BEAKER) 2.3 mg/dL 1.6-2.6 Specimen slightly (test code = 627) hemolyzed Personal Financial Planner ID - JENY [id number] 03:23:00 Test Item Value Reference Range Interpretation Comments PHOSPHORUS (BEAKER) 3.1 mg/dL 2.3-4.7 Specimen slightly (test code = 604) hemolyzed Personal Financial Planner ID - JENY MBASIC METABOLIC [id number] 03:23:00 Test Item Value Reference Range Interpretation [...] 697) EGFR (BEAKER) (test 61 mL/min/1.73 ESTIMA JAX GFR IS code = 1092) sq m NOT ACCURATE CREATININE CLEARANCE IN PREDICTING GLOMERULAR FILTRATION RATE . ESTIMATED GFR I S NOT APPLICABLE FOR DIALYSIS PATIEN TS. Personal Financial Planner ID - JENY MCBC W/PLT COUNT & AUTO [id number] 03:08:00 Test Item Value Reference Range Interpretation [...] PERCENT (BEAKER) (test code = 2801) POCT-GLUCOSE [id number] 00:10:00 Test Item Value Reference Range Interpretation Comments POC-GLUCOSE METER 116 mg/dL 70-110 H : [facility] (test code = [facility], 1538) 95[address]: Personal Financial Planner/Techni anne-marie ID = [id number] for LE IJA, AURA B-TYPE NATRIURETIC FACTOR (BNP)2021-02-15 20:07:00 Test Item Value Reference Range Interpretation Comments B-TYPE NATRIURETIC PEPTIDE (BEAKER) 206 pg/mL 0-100 H (test code = 700) Personal Financial Planner ID - DBBASIC METABOLIC [id number] 19:59:00 Test Item Value Reference Range Interpretation [...] 697) EGFR (BEAKER) (test 61 mL/min/1.73 ESTIMA JAX GFR IS code = 1092) sq m NOT ACCURATE CREATININE CLEARANCE IN PREDICTING GLOMERULAR FILTRATION RATE . ESTIMATED GFR I S NOT APPLICABLE FOR DIALYSIS PATIEN TS. Personal Financial Planner ID - DBPOCT-GLUCOSE [id number] 17:58:00 Test Item Value Reference Range Interpretation Comments POC-GLUCOSE METER 107 mg/dL 70-110 : TESTED A T [facility] 6720 (BEAKER) (test code = [facility], 1538) [address]: Personal Financial Planner/Techni anne-marie ID = [id number] for SALLY BENSON B-TYPE NATRIURETIC FACTOR (BNP)2021-02-15 12:16:00 Test Item Value Reference Range Interpretation Comments B-TYPE NATRIURETIC PEPTIDE (BEAKER) 310 pg/mL 0-100 H (test code = 700) Personal Financial Planner ID - MARIE FBASIC METABOLIC [id number] 12:11:00 Test Item Value Reference Range Interpretation [...] 697) EGFR (BEAKER) (test 57 mL/min/1.73 ESTIMA JAX GFR IS code = 1092) sq m NOT ACCURATE CREATININE CLEARANCE IN PREDICTING GLOMERULAR FILTRATION RATE . ESTIMATED GFR I S NOT APPLICABLE FOR DIALYSIS PATIEN TS. Personal Financial Planner ID - MARIE [id number] 12:11:00 Test Item Value Reference Range Interpretation Comments SODIUM (BEAKER) (test code = 381) 136 meq/L 136-145 POCT-GLUCOSE [id number] 12:08:00 Test Item Value Reference Range Interpretation Comments POC-GLUCOSE METER 94 mg/dL 70-110 : TESTED A T [facility] 6720 (BEAKER) (test code = [facility], 1538) 24757: Personal Financial Planner/Techni anne-marie ID = [id number] for GABRIELLE GUZMAN [id number] 08:10:00 Test Item Value Reference Range Interpretation Comments SODIUM (BEAKER) (test code = 381) 135 meq/L 136-145 L Personal Financial Planner ID - MARIE FHIGH SENSITIVITY TROPONIN [id number] 06:46:00 Test Item Value Reference Range Interpretation Comments HIGH SENSITIVITY 243 pg/ml See_Comment H [Automated message] TROPONIN I (test code The sy stem which = [id number]) generated this result transmitted ref erence range: <=35. Th e reference range was not used to int erpret this result as normal/abnormal . Personal Financial Planner ID - LIN LThe PORTFOLIO LEAD STAT High Sensitivity Troponin-I results should be used in conjunction with other diagnostic information such as ECG, clinical observations and information, and patient symptoms to aid in the diagnosis of [place].POCT-GLUCOSE [id number] 06:09:00 Test Item Value Reference Range Interpretation Comments POC-GLUCOSE METER 120 mg/dL 70-110 H : TESTED A T [facility] 6720 (BEAKER) (test code = [facility], 1538) [id number]: Personal Financial Planner/Techni anne-marie ID = [id number] for Jimmy Fox BASIC METABOLIC [id number] 03:56:00 Test Item Value Reference Range Interpretation [...] 697) EGFR (BEAKER) (test 53 mL/min/1.73 ESTIMA JAX GFR IS code = 1092) sq m NOT ACCURATE CREATININE CLEARANCE IN PREDICTING GLOMERULAR FILTRATION RATE . ESTIMATED GFR I S NOT APPLICABLE FOR DIALYSIS PATIEN TS. Personal Financial Planner ID - LIN [id number] 03:56:00 Test Item Value Reference Range Interpretation Comments MAGNESIUM (BEAKER) (test code = 2.4 mg/dL 1.6-2.6 627) Personal Financial Planner ID - LIN [id number] 03:56:00 Test Item Value Reference Range Interpretation Comments PHOSPHORUS (BEAKER) (test code = 2.5 mg/dL 2.3-4.7 604) Personal Financial Planner ID - LIN LCBC W/PLT COUNT & AUTO [id number] 03:47:00 Test Item Value Reference Range Interpretation [...] (BEAKER) (test code = 2801) BLOOD GAS, [id number] 03:27:00 Test Item Value Reference Range Interpretation [...] (test code = 1819) 50.0 U/S, RENAL, [id number] 03:12:00Reason for exam:->Medical renal diseaseDUSTY [facility] : 1970 Sex: MFINAL REPORT TECHNIQUE: Grayscale ultrasound of the kidneys and bladder with Doppler and spectral analysis. INDICATION: Medical [...] IMPRESSION:Unremarkable ultrasound of the kidneys. Signed: Tiny [facility] Verified Date/Time: 02/15/2021 03:12:06 HIGH SENSITIVITY TROPONIN [id number] 01:28:00 Test Item Value Reference Range Interpretation Comments HIGH SENSITIVITY 115 pg/ml See_Comment H [Automated message] TROPONIN I (test code The stem which = [id number]) generated this result transmitted ref erence range: <=35. Th e reference range was not used to int erpret this result as normal/abnormal . Personal Financial Planner ID - PIAYA LThe PORTFOLIO LEAD STAT High Sensitivity Troponin-I results should be used in conjunction with other diagnostic information such as ECG, clinical observations and information, and patient symptoms to aid in the diagnosis of OK.POCT-GLUCOSE [id number] 00:41:00 Test Item Value Reference Range Interpretation Comments POC-GLUCOSE METER 119 mg/dL 70-110 H : TESTED A T [facility] 6720 (AN) (test code = [facility] [place], 1538) [id number]: Personal Financial Planner/Techni anne-marie ID = [id number] for Jimmy Fox RAD, CHEST, 1 VIEW, NON [id number] 22:12:00Reason for exam:- >hypoxiaShould this be performed at the bedside?->Yes [facility] 1970 Sex: MFINAL REPORT INDICATION: hypoxia [...] descends below the gastroesophageal junction beyond the wcidi-bv-pssy with the tips not well seen. Signed: Tiny Whiting MDReport Verified Date/Time: 02/14/2021 22:12:55 HIGH SENSITIVITY TROPONIN [id number] 21:00:00 Test Item Value Reference Range Interpretation Comments HIGH SENSITIVITY 81 pg/ml See_Comment H [Automated message] TROPONIN I (test code = The system which [id number]) generated this result transmitted ref erence range: <=35. Th e reference range was not used to int erpret this result as normal/abnormal . Personal Financial Planner ID - DBThe PORTFOLIO LEAD STAT High Sensitivity Troponin-I results should be used in conjunctionwith other diagnostic information such as ECG, clinical observations and information, and patient symptoms to aid in the diagnosis of OK.[id number] 20:48:00 Test Item Value Reference Range Interpretation Comments SODIUM (BEAKER) (test code = 381) 133 meq/L 136-145 L Personal Financial Planner ID - DBBLOOD GAS, [id number] 20:33:00 Test Item Value Reference Range Interpretation [...] = 1819) 65.0 RAD, ABDOMEN/KUB, 1 VIEW [id number] 19:38:00Reason for exam:->Enteric tube placement verification [facility] : 1970 Sex: MFINAL REPORT TECHNIQUE: Single View of the Abdomen. INDICATION: Enteric tube placement verification. COMPARISON: None. FINDINGS/IMPRESSION: The tip of the feeding tube is over the first portion of the duodenum. There are streaky opacities in the bases which are likely due to atelectasis. However, further evaluation with a chest radiograph is recommended. There are prominent loops of small bowel and colon a nonspecific pattern. Consider a short-term follow-up radiograph to exclude asmall bowel obstruction. Signed: Yulia Michelle MDReport Verified Date/Time: 02/14/2021 19:38:06 Reading[address]: [facility] B[facility] C013X Ortho Consult Reading Room POCT-GLUCOSE [id number] 17:18:00 Test Item Value Reference Range Interpretation Comments POC-GLUCOSE METER 114 mg/dL 70-110 H : TESTED A T [facility] 6720 (BEAKER) (test code = [facility], 153) [id number]: Personal Financial Planner/Techni anne-marie ID = [id number] for SALLY BENSON [id number] 13:57:00 Test Item Value Reference Range Interpretation Comments SODIUM (BEAKER) (test code = 381) 137 meq/L 136-145 Personal Financial Planner ID - DAPHNE CPOCT-GLUCOSE [id number] 12:07:00 Test Item Value Reference Range Interpretation Comments POC-GLUCOSE METER 116 mg/dL 70-110 H : TESTED A T [facility] 6720 (BEAKER) (test code = [facility], 153) [id number]: Personal Financial Planner/Techni anne-marie ID = [id number] for Colleen Barker HEMOGLOBIN [id number] 08:38:00 Test Item Value Reference Range Interpretation Comments HEMOGLOBIN A1C (BEAKER) (test code = 5.8 % 4.3-6.1 368) POCT-GLUCOSE [id number] 06:06:00 Test Item Value Reference Range Interpretation Comments POC-GLUCOSE METER 127 mg/dL 70-110 H : TESTED A T [facility] 6720 (BEAKER) (test code = [facility], 153) [id number]: Personal Financial Planner/Techni anne-marie ID = [id number] for RADHA FOX CT BRAIN WITHOUT IV CONTRAST - [id number] 04:56:00Unlisted Reason for Exam - Click Yes and Enter Reason Below->No [facility] : 1970 Sex: MFINAL REPORT EXAM: CT BRAIN WITHOUT IV CONTRAST - PORTABLE INDICATION: Known intracranial hemorrhage TECHNIQUE: CT images from skull base to vertex without IV contrast. This exam wasperformed according to the departmental dose optimization program which includes automated exposure control, adjustment of the mA and/or kV according to the patient size, and/or use of an iterative edel nstruction technique. COMPARISON: None. FINDINGS: Parenchyma: Acute intraparenchymal [...] 0.4 cm. No intraventricular extension. Signed: Tiny Whitingepmartha Verified Date/Time: 02/14/2021 04:56:26 MAGNESIUM 2021-02-14 04:32:00 Test Item Value Reference Range Interpretation Comments MAGNESIUM (BEAKER) 2.0 mg/dL 1.6-2.6 Specimen moderately (test code = 627) hemolyzed Personal Financial Planner ID - PIAYA [id number] 04:32:00 Test Item Value Reference Range Interpretation Comments PHOSPHORUS (BEAKER) 4.0 mg/dL 2.3-4.7 Specimen moderately (test code = 604) hemolyzed Personal Financial Planner CM CEBALLOS LBASIC METABOLIC [id number] 04:32:00 Test Item Value Reference Range Interpretation [...] 697) EGFR (BEAKER) (test 66 mL/min/1.73 ESTIMA JAX GFR IS code = 1092) sq m NOT ACCURATE CREATININE CLEARANCE IN PREDICTING GLOMERULAR FILTRATION RATE . ESTIMATED GFR I S NOT APPLICABLE FOR DIALYSIS PATIEN TS. Personal Financial Planner ID Lucas CEBALLOS LLIPID [id number] 04:32:00 Test Item Value Reference Range Interpretation Comments TRIGLYCERIDES (BEAKER) 81 mg/dL Speci men moderately (test code = 540) hemolyzed CHOLESTEROL (BEAKER) 150 mg/dL Specime n moderately (test code = 631) hemolyzed HDL CHOLESTEROL (BEAKER) 35 mg/dL (test code = 976) LDL CHOLESTEROL 99 mg/dL CALCULATED (BEAKER) (test code = 633) Triglyceride Reference Range: Low Risk <150 Borderline 150-199 High Risk 200- 499 Very High Risk >=500Cholesterol Reference Range: Low Risk <200 Borderline 200-239 High Risk >240HDL Cholesterol Reference Range: Low Risk >=60 High Risk <40LDL Cholesterol Reference Range: Optimal <100 Near Optimal 100-129 Borderline 130-159 High 160-189 Very High >=190 Personal Financial Planner ID - LIN LCBC W/PLT COUNT & AUTO [id number] 04:03:00 Test Item Value Reference Range Interpretation [...] PERCENT (BEAKER) (test code = 2801) POCT-GLUCOSE [id number] 00:16:00 Test Item Value Reference Range Interpretation Comments POC-GLUCOSE METER 115 mg/dL 70-110 H : TESTED A T [facility] 6720 (BEAKER) (test code = [facility], 1538) [id number]: Personal Financial Planner/Techni anne-marie ID = [id number] for RADHA FOX POCT-GLUCOSE [id number] 18:39:00 Test Item Value Reference Range Interpretation Comments POC-GLUCOSE METER 112 mg/dL 70-110 H : TESTED A T [facility] 6720 (BEAKER) (test code = [facility], 1538) [id number]: Personal Financial Planner/Techni anne-marie ID = [id number] for Wilfrid Chandrika foster BASIC METABOLIC [id number] 16:03:00 Test Item Value Reference Range Interpretation [...] 697) EGFR (BEAKER) (test 73 mL/min/1.73 ESTIMA JAX GFR IS code = 1092) sq m NOT ACCURATE CREATININE CLEARANCE IN PREDICTING GLOMERULAR FILTRATION RATE . ESTIMATED GFR I S NOT APPLICABLE FOR DIALYSIS PATIEN TS. Personal Financial Planner ID - [id number] 16:03:00 Test Item Value Reference Range Interpretation Comments MAGNESIUM (BEAKER) (test code = 1.9 mg/dL 1.6-2.6 627) Personal Financial Planner ID - [id number] 16:03:00 Test Item Value Reference Range Interpretation Comments PHOSPHORUS (BEAKER) (test code = 2.0 mg/dL 2.3-4.7 L 604) Personal Financial Planner ID - DBHEPATIC FUNCTION [id number] 16:03:00 Test Item Value Reference Range Interpretation [...] (test code = 39 U/L 6-55 347) Personal Financial Planner ID - DBCBC W/PLT COUNT & AUTO [id number] 15:56:00 Test Item Value Reference Range Interpretation [...] 0-1 PERCENT (BEAKER) (test code = 2801) [id number] 15:55:00 Test Item Value Reference Range Interpretation Comments PARTIAL THROMBOPLASTIN TIME 29.1 seconds 22.5-36.0 (BEAKER) (test code = 760) PROTHROMBIN [id number] 15:54:00 Test Item Value Reference Range Interpretation Comments PROTIME (BEAKER) 13.1 seconds 11.9-14.2 (test code = 759) INR (BEAKER) (test 1.01 See_Comment [Automat ed message] code = 370) The system Traxer generated this result transmitted ref erence range: <=5.90. The reference range was not used to int erpret this result as normal/abnormal . RECOMMENDED COUMADIN/WARFARIN INR THERAPY RANGESSTANDARD DOSE: 2.0 - 3.0 Includes: PROPHYLAXIS for venous thrombosis, systemic embolization; TREATMENT for venous thrombosis and/or pulmonary embolus.HIGH RISK: Target INR is 2.5-3.5 for patients with mechanical heart valves.
[2022-07-10] MEDS ORDERED: KETOROLAC 30 MG/ML INJ ONE (20:18)
[2022-07-10] MEDS ORDERED: ONDANSETRON 4 MG/2 ML VIAL ONE (20:18)
[2022-07-10] MEDS ORDERED: MORPHINE 4 MG/ML SYR ONE (20:18)
[2022-07-10] MEDS ORDERED: CYCLOBENZAPRINE 10 MG TAB ONE (20:18)
[2022-07-10] MEDS ORDERED: NA CHLORIDE 0.9% 1,000 ML ONE (20:19)
[2022-07-10 20:50] LABS: MPV 7.5 fL (7.6-11.3)
[2022-07-10 20:59] LABS: Absolute Lymphocytes (CBC) 2.6 K/uL (0.7-4.9); Hematocrit 40.1 % (39.6-49.0); Lymphocytes % 18.5 % (15.3-44.8); MCV 85.3 fL (80-100)
[2022-07-10 21:13] LABS: Bilirubin Total 0.8 mg/dL (0.2-1.0)
[2022-07-10 21:14] LABS: Potassium 3.8 mmol/L (3.5-5.1)
--- NOTE | 2022-07-10 21:24 | ER ---
Nurse's Notes [facility] Name: Jeferson Garcia Age: 51 yrs Sex: Male : 1970 Arrival Date: 07/10/2022 Time: 19:27 Bed 2 Private MD: Diagnosis: Low back pain;Muscle spasm Presentation: 07/10 19:27 Chief complaint: EMS states: Pt reports having chronic back pain for over 10 years. Is jb4 having an muscle spasm in his left leg he cannot relieve. Pt has an MRI scheduled for Monday. Coronavirus screen: At this time, the client does not indicate any symptoms associated with coronavirus-19. Ebola Screen: No symptoms or risks identified at this time. Initial Sepsis Screen: Does the patient meet any 2 criteria? HR > 90 bpm. Yes Does the patient have a suspected source of infection? No. Patient's initial sepsis screen is negative. Risk Assessment: Do you want to hurt yourself or someone else? Patient reports no desire to harm self or others. Onset of symptoms was July 10, 2022. Transition of care: patient was not received from another setting of care. : Method Of Arrival: EMS: [facility] jb4 19: Acuity: FREDA 4 jb4 Historical: - Allergies: 19:31 No Known Allergies; jb4 - Home Meds: 19:31 nifedipine Oral [Active]; carvedilol oral [Active]; Tramadol Oral [Active]; jb4 Hydrocodone-Acetaminophen Oral [Active]; Cyclobenzaprine Oral [Active]; - PMHx: 19:31 CVA with Left sided weakness; Hypertensive disorder; Backpain; jb4 - Immunization history:: Adult Immunizations up to date. - Social history:: Smoking status: Patient denies any tobacco usage or history of. Patient/guardian denies using alcohol, street drugs. - Family history:: not pertinent. Screenin:33 Abuse screen: Denies threats or abuse. Nutritional screening: No deficits noted. jb4 Tuberculosis screening: No symptoms or risk factors identified. Fall Risk None identified. Assessment: 19:33 General: Appears in no apparent distress. uncomfortable, Behavior is calm, cooperative, jb4 appropriate for age. Pain: Complains of pain in left leg Pain does not radiate. Pain currently is 8 out of 10 on a pain scale. Quality of pain is described as crampy. Neuro: Level of Consciousness is awake, alert, obeys commands, Oriented to person, place, time, situation. Cardiovascular: Patient's skin is warm and dry. Respiratory: Airway is patent Respiratory effort is even, unlabored, Respiratory pattern is regular, symmetrical. GI: No signs and/or symptoms were reported involving the gastrointestinal system. : No signs and/or symptoms were reported regarding the genitourinary system. EENT: No signs and/or symptoms were reported regarding the EENT system. Derm: Skin is intact, Skin is pink, warm \T\ dry. Musculoskeletal: Circulation, motion, and sensation intact. Range of motion: Left upper extremity is contracted due to prior stroke. 20:44 Reassessment: Patient appears in no apparent distress at this time. Patient and/or aa9 family updated on plan of care and expected duration. Pain level reassessed. General: Behavior is calm, cooperative, appropriate for age. Neuro: Level of Consciousness is awake, alert, obeys commands, Oriented to person, place, time, situation. Respiratory: Airway is patent Respiratory effort is even, unlabored. 22:16 Reassessment: Patient appears in no apparent distress at this time. Patient and/or jb4 family updated on plan of care and expected duration. Pain level reassessed. Patient is alert, oriented x 3, equal unlabored respirations, skin warm/dry/pink. Vital Signs: 19:27 BP 171 / 101; Pulse 117; Resp 16; Temp 98.4(O); Pulse Ox 98% on R/A; Weight 92.99 kg 4 (R); Height 5 ft. 8 in. (172.72 cm) (R); Pain 8/10; 20:30 BP 144 / 90; Pulse 110; Resp 18 S; Pulse Ox 96% on R/A; aa9 20:45 BP 150 / 96; Pulse 112; Resp 18 S; Pulse Ox 95% on R/A; aa9 22:16 BP 165 / 108; Pulse 114; Resp 16; Pulse Ox 96% on R/A; jb4 19:27 Body Mass Index 31.17 (92.99 kg, 172.72 cm) [facility] ED Course: 19:27 Patient arrived in ED. [facility] 19:27 Randy Adrian MD is Attending Physician. rt 19:31 Triage completed. jb4 19:31 Arm band placed on right wrist. jb4 19:33 Patient has correct armband on for positive identification. Placed in gown. Bed in low jb4 position. Call light in reach. Side rails up X 1. Client placed on continuous cardiac and pulse oximetry monitoring. NIBP monitoring applied. 20:16 Renetta Pimentel, RN is Primary Nurse. aa9 20:38 Inserted saline lock: 20 gauge in right antecubital area, using aseptic technique. aa9 Blood collected. 20:42 CPK Sent. aa9 20:42 CMP Sent. aa9 20:42 CBC with Diff Sent. aa9 20:44 Client placed on continuous cardiac and pulse oximetry monitoring. NIBP monitoring aa9 applied. Door closed. Warm blanket given. Diet: Patient given water. Tolerated well. 22:16 No provider procedures requiring assistance completed. IV discontinued, intact, jb4 bleeding controlled, No redness/swelling at site. Pressure dressing applied. Administered Medications: 20:42 Drug: Ketorolac 30 mg Route: IVP; Site: right antecubital; aa9 20:42 Drug: morphine 4 mg Route: IVP; Infused Over: 4 mins; Site: right antecubital; aa9 20:42 Drug: Zofran (Ondansetron) 4 mg Route: IVP; Site: right antecubital; aa9 20:42 Drug: Flexeril (cyclobenzaprine) 10 mg Route: PO; aa9 20:42 Drug: NS 0.9% 1000 ml Route: IV; Rate: 1 bolus; Site: right antecubital; aa9 Medication: 19:33 VIS not applicable for this client. jb4 Outcome: 21:24 Discharge ordered by . rt 22:16 Discharged to home via wheelchair. jb4 22:16 Condition: stable 22:16 Discharge instructions given to patient, Instructed on discharge instructions, follow up and referral plans. Demonstrated understanding of instructions, follow-up care. 22:17 Patient left the ED. jb4 Signatures: Leland Butts RN RN [email or web address] Renetta Pimentel, RN RN aa9 Randy Adrian MD MD rt Corrections: (The following items were deleted from the chart) 21:01 20:43 BP 144 / 90; Pulse 86bpm; Resp 18bpm; Spontaneous; Pulse Ox 96% RA; aa9 aa9
--- NOTE | 2022-07-10 21:25 | EDPHYS ---
Physician Documentation [facility] Name: Jeferson Garcia Age: 51 yrs Sex: Male : 1970 Arrival Date: 07/10/2022 Time: 19: Bed 2 Private MD: ED Physician Randy Adrian HPI: 07/10 19:58 This 51 yrs old Male presents to ER via EMS with complaints of Neck pain, left leg rt cramping. 19:58 The patient presents with pain that is chronic. The symptoms are located in the low rt back. Onset: The symptoms/episode began/occurred 10 year(s) ago. The pain radiates. Associated signs and symptoms: The patient has no apparent associated signs or symptoms. Modifying factors: the patient symptoms are aggravated by bending. Presents to the ED with a low back pain rating to the left leg. He states his pain has been present for about 10 years. He reports a cramping sensation to his left leg which is new. Patient has an MRI scheduled for Monday, with likely close outpatient follow-up for that. Denies any new injury. Denies any new numbness or tingling. Patient did have a stroke about a year and a half ago with residual left-sided deficits. Denies other acute complaints at this time, pain is aching nature, no other aggravating alleviating factors.. Historical: - Allergies: 19:31 No Known Allergies; jb4 - Home Meds: 19:31 nifedipine Oral [Active]; carvedilol oral [Active]; Tramadol Oral [Active]; jb4 Hydrocodone-Acetaminophen Oral [Active]; Cyclobenzaprine Oral [Active]; - PMHx: 19:31 CVA with Left sided weakness; Hypertensive disorder; Backpain; jb4 - Immunization history:: Adult Immunizations up to date. - Social history:: Smoking status: Patient denies any tobacco usage or history of. Patient/guardian denies using alcohol, street drugs. - Family history:: not pertinent. ROS: 19:58 Constitutional: Negative for fever, chills, and weight loss, Eyes: Negative for injury, rt pain, redness, and discharge, ENT: Negative for injury, pain, and discharge, Neck: Negative for injury, pain, and swelling, Cardiovascular: Negative for chest pain, palpitations, and edema, Respiratory: Negative for shortness of breath, cough, wheezing, and pleuritic chest pain, Abdomen/GI: Negative for abdominal pain, nausea, vomiting, diarrhea, and constipation, Skin: Negative for injury, rash, and discoloration, Neuro: Negative for headache, weakness, numbness, tingling, and seizure, Psych: Negative for depression, anxiety, suicide ideation, homicidal ideation, and hallucinations. 19:58 Back: Positive for pain at rest, pain with movement. 19:58 MS/extremity: Positive for cramping, Negative for injury or acute deformity. Exam: 19:58 Constitutional: This is a well developed, well nourished patient who is awake, alert, rt and in no acute distress. Head/Face: Normocephalic, atraumatic. Eyes: Pupils equal round and reactive to light, extra-ocular motions intact. Lids and lashes normal. Conjunctiva and sclera are non-icteric and not injected. Cornea within normal limits. Periorbital areas with no swelling, redness, or edema. ENT: Nares patent. No nasal discharge, no septal abnormalities noted. Tympanic membranes are normal and external auditory canals are clear. Oropharynx with no redness, swelling, or masses, exudates, or evidence of obstruction, uvula midline. Mucous membranes moist. Chest/axilla: Normal chest wall appearance and motion. Nontender with no deformity. No lesions are appreciated. Cardiovascular: Regular rate and rhythm with a normal S1 and S2. No gallops, murmurs, or rubs. Normal PMI, no JVD. No pulse deficits. Respiratory: Lungs have equal breath sounds bilaterally, clear to auscultation and percussion. No rales, rhonchi or wheezes noted. No increased work of breathing, no retractions or nasal flaring. Abdomen/GI: Soft, non-tender, with normal bowel sounds. No distension or tympany. No guarding or rebound. No evidence of tenderness throughout. Skin: Warm, dry with normal turgor. Normal color with no rashes, no lesions, and no evidence of cellulitis. MS/ Extremity: Pulses equal, no cyanosis. Neurovascular intact. Full, normal range of motion. Neuro: Awake and alert, GCS 15, oriented to person, place, time, and situation. Cranial nerves II-XII grossly intact. Motor strength 5/5 in all extremities. Sensory grossly intact. Cerebellar exam normal. Normal gait. Psych: Awake, alert, with orientation to person, place and time. Behavior, mood, and affect are within normal limits. 19:58 Back: Tenderness to the left sacroiliac notch, no midline tenderness, no step-off. Vital Signs: 19:27 BP 171 / 101; Pulse 117; Resp 16; Temp 98.4(O); Pulse Ox 98% on R/A; Weight 92.99 kg jb4 (R); Height 5 ft. 8 in. (172.72 cm) (R); Pain 8/10; 20:30 BP 144 / 90; Pulse 110; Resp 18 S; Pulse Ox 96% on R/A; aa9 20:45 BP 150 / 96; Pulse 112; Resp 18 S; Pulse Ox 95% on R/A; aa9 22:16 BP 165 / 108; Pulse 114; Resp 16; Pulse Ox 96% on R/A; jb4 19:27 Body Mass Index 31.17 (92.99 kg, 172.72 cm) jb4 MDM: 19:33 Patient medically screened. rt 21:24 Differential diagnosis: Abdominal Aortic Aneurysm chronic back pain, ruptured disc. rt Data reviewed: vital signs, nurses notes, lab test result(s). ED course: Patient presents to the ED with a chronic low back pain. He has had spasms of his left leg. There is no bowel, bladder incontinence, no saddle anesthesia. I do not suspect cauda equina syndrome, spinal epidural abscess. Labs were obtained that revealed normal electrolytes, no evidence of rhabdomyolysis. Symptoms have significantly improved with treatment in the ED, he is stable for outpatient care to keep his outpatient MRI appointment on Monday. Patient verbalized understanding is comfortable with this plan.. 07/10 19:43 Order name: CBC with Diff; Complete Time: 21:16 rt 07/10 19:43 Order name: CMP; Complete Time: 21:16 rt 07/10 19:43 Order name: CPK; Complete Time: 21:16 rt Administered Medications: 20:42 Drug: Ketorolac 30 mg Route: IVP; Site: right antecubital; aa9 20:42 Drug: morphine 4 mg Route: IVP; Infused Over: 4 mins; Site: right antecubital; aa9 20:42 Drug: Zofran (Ondansetron) 4 mg Route: IVP; Site: right antecubital; aa9 20:42 Drug: Flexeril (cyclobenzaprine) 10 mg Route: PO; :42 Drug: NS 0.9% 1000 ml Route: IV; Rate: 1 bolus; Site: right antecubital; aa9 Disposition Summary: 07/10/22 21:24 Discharge Ordered Location: Home rt Problem: an ongoing problem rt Symptoms: have improved rt Condition: Stable rt Diagnosis - Low back pain rt - Muscle spasm rt Followup: rt - With: Private Physician - When: 2 - 3 days - Reason: Discharge Instructions: - Discharge Summary Sheet rt - Chronic Back Pain, [id number] rt Forms: - Medication Reconciliation Form rt - Thank You Letter rt - Antibiotic Education rt - Prescription Opioid Use rt Prescriptions: - Cyclobenzaprine 10 mg Oral Tablet - take 1 tablet by ORAL route every 8 hours As needed; 21 tablet; Refills: 0, rt Product Selection Permitted Signatures: Dispatcher [employer] Leland Vargas RN RN jb4 Renetta Pimentel RN RN aa9 Randy Adrian MD MD rt
[2022-07-10 22:48] VITALS: TEMP 98.4
[2022-07-10 22:51] VITALS: BP 165/108; O2SAT 96
== END 2022-07-10 22:17 | disposition home or self-care (01) ==
LOC: ER 19:25
DX: M62.830 Muscle spasm of back (principal); I10 Essential (primary) hypertension
CPT/HCPCS: 85025; 36415; 82550; 80053; 96375; 96374; 99284; J7030; J2405